=== PATIENT | male | born 1980 | race Hispanic/Latino ===

== ENCOUNTER 2018-01-02 13:02 | Observation (INO) | payer SELFPAY ==
[2018-01-02] MEDS ORDERED: NA CHLORIDE 0.9% 1,000 ML ONE (13:42)
[2018-01-02 13:44] LABS: Absolute Lymphocytes (CBC) 1.4 K/uL (0.7-4.9); Absolute Monocytes 0.7 K/uL (0.1-1.3); Absolute Neutrophil 11.6 K/uL (1.8-8.0); Basophils % 0.2 % (0-1.3); Eosinophils % 0.1 % (0-4.4); Hematocrit 39.8 % (39.6-49.0); Lymphocytes % 10.2 % (15.3-44.8); MCV 92.9 fL (80-100); MPV 7.7 fL (7.6-11.3); Monocytes % 5.3 % (3.3-12.3); RBC Red Blood Cell Count 4.28 M/uL (4.33-5.43)
[2018-01-02 13:53] LABS: Bicarbonate 25 mEq/L (21-31); Glucose Level 91 mg/dL (65-120); Potassium 3.5 mEq/L (3.6-5.0); Sodium Level 141 mEq/L (135-145)
--- NOTE | 2018-01-02 13:59 | RAD REPORT ---
EXAM DESCRIPTION: CT - Head Brain Wo Cont - 01/02/2018 1:43 pm CLINICAL HISTORY: Altered consciousness COMPARISON: 07/03/2015, 02/09/2015 TECHNIQUE: All CT scans are performed using dose optimization technique as appropriate and may inclu de automated exposure control or mA/KV adjustment according to patient size. FINDINGS: No intracranial hemorrhage, hydrocephalus or extra-axial fluid collection.No areas of brai n edema or evidence of midline shift. The paranasal sinuses and mastoids are clear. The calvarium is intact. IMPRESSION: No acute intracranial abnormality.
[2018-01-02 14:11] LABS: ALT/SGPT 28 IU/L (10-60); AST/SGOT 49 IU/L (10-42); Albumin 4.3 g/dL (3.2-5.5); Alkaline Phosphatase 77 IU/L (42-121); BUN Blood Urea Nitrogen 12 mg/dL (6-20); Bilirubin Direct 0.3 mg/dL (0-0.2); Bilirubin Total 2.2 mg/dL (0.3-1.2); Glomerular Filtration Rate > 90 mL/min (=/>90); Protein, Total 7.3 g/dL (6.0-8.3)
[2018-01-02 14:21] LABS: Alcohol Serum/Plasma < 10 mg/dl
[2018-01-02 14:21] LABS: Barbiturates NEGATIVE; Benzodiazepines NEGATIVE; Cocaine POSITIVE; Opiates NEGATIVE; Phencyclidine NEGATIVE; THC Cannibis POSITIVE
[2018-01-02 14:23] LABS: METHAMPHETAM POSITIVE
[2018-01-02 14:23] LABS: Creatine Phosphokinase 1455 IU/L (22-269)
[2018-01-02 14:36] LABS: Urine Blood NEGATIVE (NEG); Urine Glucose NEGATIVE (NEG); Urine Protein TRACE (NEG); Urine Specific Gravity >1.030 (1.005-1.030); Urine pH 5.5 (5.0-7.0)
--- NOTE | 2018-01-02 15:17 | EDPHYS ---
Physician Documentation [facility] Name: Tanner Lopes Age: 37 yrs Sex: Male : 1980 Arrival Date: 01/02/2018 Time: 13:03 Bed 30 Private MD: ED Physician Robel Farmer HPI: 01/02 15:11 This 37 yrs old Male presents to ER via EMS with complaints of general gs weakness. 15:11 The patient presents to the emergency department with weakness of the entire body, gs generalized weakness. Onset: The symptoms/episode began/occurred today. Context: occurred at home, possible ingestion of substance, unknown. Associated signs and symptoms: Pertinent positives: dizziness, weakness. Severity of symptoms: At their worst the symptoms were moderate in the emergency department the symptoms are unchanged. Current symptoms: confusion. The patient has not experienced similar symptoms in the past. Historical: - Allergies: 13:13 No Known Drug Allergies; lk1 - Home Meds: 13:13 gabapentin Oral [Active]; Risperdal Oral [Active]; lk1 - PMHx: 13:13 Anxiety; Bipolar disorder; Depression; Schizophrenia; lk1 - Immunization history:: Adult Immunizations up to date. - Social history:: Smoking status: Patient uses tobacco products, smokes one pack cigarettes per day. Patient uses alcohol, street drugs, marijuana. ROS: 15:11 All other systems are negative. gs Exam: 15:11 Head/Face: Normocephalic, atraumatic. Eyes: Pupils equal round and reactive to light, gs extra-ocular motions intact. Lids and lashes normal. Conjunctiva and sclera are non-icteric and not injected. Cornea within normal limits. Periorbital areas with no swelling, redness, or edema. ENT: Nares patent. No nasal discharge, no septal abnormalities noted. Tympanic membranes are normal and external auditory canals are clear. Oropharynx with no redness, swelling, or masses, exudates, or evidence of obstruction, uvula midline. Mucous membranes moist. Neck: Trachea midline, no thyromegaly or masses palpated, and no cervical lymphadenopathy. Supple, full range of motion without nuchal rigidity, or vertebral point tenderness. No Meningismus. Chest/axilla: Normal chest wall appearance and motion. Nontender with no deformity. No lesions are appreciated. Cardiovascular: Regular rate and rhythm with a normal S1 and S2. No gallops, murmurs, or rubs. Normal PMI, no JVD. No pulse deficits. Respiratory: Lungs have equal breath sounds bilaterally, clear to auscultation and percussion. No rales, rhonchi or wheezes noted. No increased work of breathing, no retractions or nasal flaring. Abdomen/GI: Soft, non-tender, with normal bowel sounds. No distension or tympany. No guarding or rebound. No evidence of tenderness throughout. Back: No spinal tenderness. No costovertebral tenderness. Full range of motion. Skin: Warm, dry with normal turgor. Normal color with no rashes, no lesions, and no evidence of cellulitis. MS/ Extremity: Pulses equal, no cyanosis. Neurovascular intact. Full, normal range of motion. 15:11 Constitutional: The patient appears alert, awake. 15:11 ECG was reviewed by the Attending Physician. 15:11 Neuro: Orientation: to person, place, time \T\ situation. Mentation: slow to respond, confused, Cranial nerves: CN II- XII are normal as tested, Cerebellar function: normal finger to nose testing, Motor: moves all fours, strength is 5/5 in all extremities, Sensation: no acute changes. Vital Signs: 13:17 BP 116 / 77; Pulse 84; Resp 16; Temp 98.9(O); Pulse Ox 99% ; tl3 14:53 BP 113 / 65; Pulse 76; Resp 16; Pulse Ox 98% on R/A; tl3 15:34 BP 123 / 70; Pulse 84; Resp 16; Pulse Ox 99% on R/A; tl3 16:28 BP 107 / 64; Pulse 78; Resp 16; Pulse Ox 100% ; tl3 MDM: 13:03 Patient medically screened. gs 15:11 Data reviewed: vital signs, nurses notes. Response to treatment: the patient's symptoms gs have mildly improved after treatment, and as a result, I will admit patient. 01/02 13:06 Order name: Basic Metabolic Panel; Complete Time: 15:04 01/02 13:06 Order name: CBC with Diff; Complete Time: 14:04 01/02 13:06 Order name: ETOH Level; Complete Time: 15:04 01/02 13:06 Order name: Hepatic Function; Complete Time: 15:04 01/02 13:06 Order name: Urine Drug Screen; Complete Time: 15:04 01/02 13:06 Order name: CPK; Complete Time: 15:04 01/02 13:06 Order name: EKG; Complete Time: 13:06 01/02 13:06 Order name: EKG - Nurse/Tech; Complete Time: 15:08 01/02 13:06 Order name: IV Saline Lock; Complete Time: 13:37 01/02 13:06 Order name: Labs collected and sent; Complete Time: 13:37 01/02 13:06 Order name: Urine Dipstick-Ancillary (obtain specimen); Complete Time: 15:24 01/02 13:06 Order name: CT Head Brain wo Cont; Complete Time: 14:04 01/02 14:11 Order name: Urine Dipstick--Ancillary (enter results); Complete Time: 15:04 ms EC:11 Rate is 70 beats/min. Rhythm is regular. T waves are Normal. No ST changes noted. Clinical impression: Abnormal EKG without significant change. Interpreted by me. Administered Medications: 13:36 Drug: NS 0.9% 1000 ml Route: IV; Rate: 1 bolus; Site: right forearm; Delivery: Primary tl3 tubing; 15:07 Follow up: IV Status: Completed infusion; IV Intake: 1000ml tl3 Disposition: 01/02/18 15:16 Hospitalization ordered by Adithya Knight for Observation. Preliminary diagnosis are Poisoning by cocaine, undetermined, Rhabdomyolysis. - Bed requested for Telemetry/MedSurg (observation). - Status is Observation. tl3 - Condition is Stable. - Problem is new. - Symptoms have improved. UTI on Admission? No Signatures: Dispatcher [employer] EDOrquidea Naylor ms, Leah, RN RN lk1 Olive Jha RN RN df Starr, Gregory, MD MD Kari Bocanegra RN RN tl3
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
[2018-01-02] MEDS ORDERED: ONDANSETRON 4 MG/2 ML VIAL IV PRN (16:58)
[2018-01-02] MEDS ORDERED: ACETAMINOPHEN 650MG/RECT SUPP PR PRN (16:58)
[2018-01-02 17:33] VITALS: BMI 25.1
[2018-01-02] MEDS: NA CHLORIDE 0.9% 1,000 ML IV SCH ×2 (17:42→22:41)
[2018-01-02] MEDS ORDERED: INFLUENZA VACCINE (for 5y+) 0.5 ML DOSE IMVAC ONE (18:00)
[2018-01-02 18:04] LABS: CKMB Creatine Kinase MB 9.9 ng/ml (0.3-4.0)
[2018-01-02 23:29] VITALS: O2SAT 97
[2018-01-03 01:47] LABS: CKMB Creatine Kinase MB 8.2 ng/ml (0.3-4.0)
[2018-01-03] MEDS: NA CHLORIDE 0.9% 1,000 ML IV SCH ×2 (02:54→08:07)
[2018-01-03 03:52] LABS: Urine Appearance CLEAR; Urine Bilirubin NEGATIVE (NEG); Urine Blood NEGATIVE (NEG); Urine Color YELLOW; Urine Glucose NEGATIVE (NEG); Urine Protein NEGATIVE (NEG); Urine Specific Gravity >=1.030 (1.005-1.030)
[2018-01-03 03:58] LABS: Urine Microscopic Reflex NO UMIC
--- NOTE | 2018-01-03 04:37 | HP ---
Date of Admission: 01/02/2018 Reason For Admission: Drug overdose. History Of Present Illness: This is a 37-year-old gentleman with history of multiple medical problem s significant for depression, bipolar, anxiety, schizophrenia, who presented to the emergency departm ent with generalized fatigue, weakness of the entire body after onset of substance ingestion. The pa keena reported some dizziness with occasional confusion in the emergency room. A CAT scan of the bra in was done and that was normal. Labs showed CBC with white blood cells 13.8, hemoglobin 13.3, plate let of 359. Chemistry was normal except for potassium of 3.5, bilirubin of 2.2 with direct bilirubin of 0.3. AST of 49. Creatine kinase was 1455. CMP was pending. Troponin also was pending as well. Urine tox screen was positive for amphetamine, cocaine, and THC. He was admitted to be observed fo r rhabdo and hydration. Currently, he is lying in bed. He looks comfortable. His fatigue improved. He is able to talk appropriately. Review of systems is otherwise as below. Past Medical History: Significant for depression, anxiety, bipolar, and schizophrenia. Past Surgical History: None. Allergies: NONE. Social History: He is single. He has 1 kid. He works as an security installer. He does not drink so much, just socially, but he does use drugs, cocaine, pot, meth. He also smoke tobacco up to half pack a da y. Family History: Significant for both father and mother of cirrhosis from what he call it fatty liver. Review of Systems: Denies any fever, chills, night sweats. Had dizziness earlier, but not any more. He had fatigue ear lier. No cough, sputum, shortness of breath. No chest pain, palpitations, PND, orthopnea, dyspnea o n exertion. No lower extremity edema. No nausea, vomiting, abdominal pain, change in bowel movement , diarrhea, constipation, dysuria, frequency, urgency, hematuria. There is no history of seizure or stroke, but depression and anxiety. Physical Examination: Vital Signs: Currently, blood pressure is at 113/65, respiratory rate 16, pulse 76, temperature 98.9 , saturating 98% on room air. General: He is fully alert, oriented x3. Does not look in any distress. HEENT: Atraumatic, normocephalic. PERRLA. Oral mucosa is moist. Neck: Supple. No JVD. No carotid bruits. Chest: Clear to auscultation. Good air entry. Heart: Regular rate and rhythm. S1 and S2 normal. No gallop or murmur. Abdomen: Soft, nontender. No masses. No hepatosplenomegaly. Positive bowel sounds. Extremities: No clubbing, cyanosis, or edema. No calf tenderness. Neurologic: Grossly intact. Cranial nerve exam 2 through 12 intact. Normal sensation. Normal refl exes. Normal muscle strength. Laboratory Data: Labs in the emergency room showed CBC within normal, except for mild anemia at 13.3 , white blood cells 13.8. Chemistry within normal except for potassium of 3.5, bilirubin of 2.2 with direct bilirubin of 0.3. AST of 49. Urine tox was positive for amphetamine, cocaine, and THC. Assessment And Plan: This is a 37-year-old gentleman with history of multiple psychological problems like depression, anxiety, bipolar, and schizophrenia admitted with general fatigue and drug overdose . 1.Drug overdose with substance abuse. The patient counseled about stop using drugs and he will be o bserved overnight. 2.Rhabdomyolysis ? We will start the patient on aggressive IV hydration with 200 cc per hour of nor mal saline and check CK every 8 hours. I will also check his CK-MB and troponin given his cocaine us e. 3.If the patient's CK improves overnight, we will probably discharge him home tomorrow. 4.Elevated AST consistent with alcohol intake. We will observe for now and repeat LFTs in the [facility]. LILLIAN/JESIKA Voice ID: [id number]
[2018-01-03 05:48] LABS: Absolute Lymphocytes (CBC) 2.2 K/uL (0.7-4.9); Absolute Monocytes 0.6 K/uL (0.1-1.3); Absolute Neutrophil 3.3 K/uL (1.8-8.0); Basophils % 0.7 % (0-1.3); Eosinophils % 2.2 % (0-4.4); Hematocrit 37.9 % (39.6-49.0); Lymphocytes % 35.1 % (15.3-44.8); MCH 31.1 pg (27.0-35.0); MCV 92.9 fL (80-100); MPV 7.8 fL (7.6-11.3); Monocytes % 9.1 % (3.3-12.3); RBC Red Blood Cell Count 4.08 M/uL (4.33-5.43)
[2018-01-03 06:16] LABS: ALT/SGPT 32 IU/L (10-60); AST/SGOT 58 IU/L (10-42); Albumin 3.2 g/dL (3.2-5.5); Alkaline Phosphatase 67 IU/L (42-121); BUN Blood Urea Nitrogen 12 mg/dL (6-20); Bicarbonate 26 mEq/L (21-31); Bilirubin Total 1.2 mg/dL (0.3-1.2); Glomerular Filtration Rate > 90 mL/min (=/>90); Glucose Level 84 mg/dL (65-120); Potassium 3.8 mEq/L (3.6-5.0); Protein, Total 5.8 g/dL (6.0-8.3); Sodium Level 139 mEq/L (135-145)
[2018-01-03 10:02] LABS: CKMB Creatine Kinase MB 7.1 ng/ml (0.3-4.0)
[2018-01-03 10:04] VITALS: BP 114/68; TEMP 97.7
[2018-01-03] MEDS ORDERED: INFLUENZA VACCINE (for 5y+) 0.5 ML DOSE IMVAC ONE (12:00)
--- NOTE | 2018-01-03 12:47 | EKG ---
Test Date: 2018-01-02 Test Time: 15:01:06 Outside Sales: TL MEASUREMENT RESULTS: Intervals: Rate: 66 MN: 160 QRSD: 94 QT: 398 QTc: 417 [place]: P: 112 MN: 160 QRS: 124 T: 143 INTERPRETIVE STATEMENTS: Suspect arm lead reversal, interpretation assumes no reversal Normal sinus rhythm Right axis deviation Right ventricular hypertrophy Nonspecific ST and T wave abnormality Abnormal ECG Compared to ECG 07/03/2015 00:41:22 Most likely a Normal ECG except for arm lead reversal Electronically Signed On 01-03-18 12:47:09 CDT by Carl Barnes
--- NOTE | 2018-01-04 02:02 | DS ---
Date of Discharge: 01/03/2018 Discharge Diagnoses: 1.Substance abuse. 2.Fatigue. 3.Elevated CK, rule out rhabdomyolysis. 4.Mild anemia. Consult: None. Procedure: None except for CAT scan, which was negative. History Of Present Illness: Please refer to my history and physical exam noted yesterday. Hospital Course: Initially, the patient presented with progressive fatigue and confusion and found t o have substance abuse. Upon screening in the emergency room, was positive for amphetamine which he admitted taking cocaine and THC. The patient's labs showed mild anemia with leukocytosis, which reso lved today. His CK was elevated all the way up to 1201. He was kept on IV fluid hydration to observ e that overnight and this morning, it was all the way down to 785. The patient had very good urine o utput. His troponin was negative. He never had any chest pain. We will be discharging him home to [place]. He will need to follow up with primary care physician in couple weeks. He stated he had one, wh om he had not seen for a while. Check his CK and make sure it is going down. I advised him to drink a lot and keep well hydrated, at least 8 ounces every 2 hours. The patient was advised to come back if he has any chest pain. He advised to avoid drugs as that would put him at risk for heart attack. In terms of his feet, I am not sure if the patient has eczema. I advised him to use cortisone crea m 1% [id number]. Discussed with primary care physician to refer him to Dermatology. Discharge Condition: Stable. Discharge Diet: Regular. Discharge Followup: With primary care physician in Thursday or Thursday with labs to check CK and CK-MB and primary care physician to refer the patient to Dermatology. Discharge Medications: [id number] cortisone cream. Prescription needed otherwise none. Discharge Physical Examination: Vital Signs: Currently vital signs, blood pressure is 114/60, respi ratory rate 18, pulse 74, temperature 97.7. General: The patient is alert and oriented x3. Does not look in any distress. HEENT: Atraumatic, normocephalic. PERRLA. Oral mucosa is moist. Neck: Supple. No JVP. No carotid bruits. Chest: Clear to auscultation. Good air entry. Heart: Regular rate and rhythm. S1, S2 normal. No gallop or murmur. Abdomen: Soft. No masses. No hepatosplenomegaly. Positive bowel sounds. Extremities: No clubbing, cyanosis, or edema. There is dry slough skin at the bottom of his feet. Neurologic: Grossly intact. Cranial nerve exam 2 through 12 intact. Normal sensation. Normal refl exes. Normal muscle strength. LILLIAN/JESIKA Voice ID: [id number] Report ID: [id number]
== END 2018-01-03 15:23 | disposition home or self-care (01) ==
LOC: ER 13:02 → ERHOLD 15:16 → 2ND 16:33
PROVIDERS: ADMIT Internal Medicine; ATTEND Internal Medicine
DX: F31.9 Bipolar disorder, unspecified; F17.210 Nicotine dependence, cigarettes, uncomplicated; F41.8 Other specified anxiety disorders; D64.9 Anemia, unspecified; Z23 Encounter for immunization; R53.83 Other fatigue; F15.10 Other stimulant abuse, uncomplicated; F14.10 Cocaine abuse, uncomplicated; F12.10 Cannabis abuse, uncomplicated
CPT/HCPCS: 36415; 70450; 80048; 80053; 80076; 80307; 80320; 81003; 82550; 82553; 84484; 85025; 93005; 96360; 96361; 99285; G0008; G0378; J7030; Q2035

== ENCOUNTER 2018-02-05 14:03 | Emergency (ER) | payer SELFPAY ==
[2018-02-05 14:38] LABS: Urine Blood TRACE (NEG); Urine Glucose NEGATIVE (NEG); Urine Protein NEGATIVE (NEG); Urine Specific Gravity >1.030 (1.005-1.030)
[2018-02-05 15:25] LABS: Barbiturates NEGATIVE; Benzodiazepines POSITIVE; Cocaine NEGATIVE; Opiates NEGATIVE; Phencyclidine NEGATIVE; THC Cannibis POSITIVE
[2018-02-05 15:26] LABS: METHAMPHETAM POSITIVE
[2018-02-05 15:46] LABS: Absolute Lymphocytes (CBC) 1.6 K/uL (0.7-4.9); Absolute Monocytes 0.4 K/uL (0.1-1.3); Absolute Neutrophil 5.1 K/uL (1.8-8.0); Basophils % 0.2 % (0-1.3); Eosinophils % 1.5 % (0-4.4); Lymphocytes % 21.8 % (15.3-44.8); MCH 30.5 pg (27.0-35.0); MCV 91.8 fL (80-100); MPV 7.9 fL (7.6-11.3); Monocytes % 6.2 % (3.3-12.3); RBC Red Blood Cell Count 4.03 M/uL (4.33-5.43)
[2018-02-05 15:53] LABS: Glucose Level 98 mg/dL (65-120); Protime INR 1.02
[2018-02-05 15:59] LABS: ALT/SGPT 47 IU/L (10-60); AST/SGOT 39 IU/L (10-42); Albumin 4.1 g/dL (3.2-5.5); Alkaline Phosphatase 58 IU/L (42-121); Bilirubin Direct 0.1 mg/dL (0-0.2); Bilirubin Total 0.8 mg/dL (0.3-1.2); Protein, Total 6.8 g/dL (6.0-8.3)
[2018-02-05 16:01] LABS: Bicarbonate 27 mEq/L (21-31); Sodium Level 138 mEq/L (135-145)
[2018-02-05 16:02] LABS: Alcohol Serum/Plasma < 10 mg/dl; BUN Blood Urea Nitrogen < 5 mg/dL (6-20); Salicylates Level < 4.0 mg/dl (<30)
[2018-02-05 16:03] LABS: Potassium 2.9 mEq/L (3.6-5.0)
[2018-02-05] MEDS ORDERED: POTASSIUM 25 MEQ EFFERV TAB ONE (16:22)
--- NOTE | 2018-02-05 17:41 | EKG ---
Test Date: 2018-02-05 Test Time: 14:30:48 Compensation Intern: TATI/Braxton MEASUREMENT RESULTS: Intervals: Rate: 71 WI: 160 QRSD: 92 QT: 372 QTc: 404 [place]: P: 52 WI: 160 QRS: 61 T: 24 INTERPRETIVE STATEMENTS: Normal sinus rhythm Normal ECG Compared to ECG 01/02/2018 15:01:06 Right-axis deviation no longer present Right ventricular hypertrophy no longer present ST (T wave) deviation no longer present Electronically Signed On 02-05-18 17:40:18 CDT by Carl Barnes
[2018-02-06] MEDS ORDERED: LORAZEPAM 1 MG TABLET ONE ×2 (10:22→13:47)
[2018-02-06] MEDS ORDERED: ZIPRASIDONE MESYLA 20 MG/VIAL IM ONE (15:26)
[2018-02-07] MEDS ORDERED: LORAZEPAM 1 MG TABLET ONE (19:59)
--- NOTE | 2018-02-08 14:08 | ER ---
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 this time. 16:30 Safety Checks: Personal items have been removed The door is open or patient has been ph placed in a hallway bed/chair. There are no family/friend visitors at this time. 16:35 Primary Nurse role handed off by Velia Jacobson LVN ph 16:35 Peggy Baumann, RN is Primary Nurse. ph 16:38 No provider procedures requiring assistance completed. ph 16:45 Safety Checks: Personal items have been removed The door is open or patient has been ph placed in a hallway bed/chair. There are no family/friend visitors at this time. 17:00 Safety Checks: Personal items have been removed The door is open or patient has been ph placed in a hallway bed/chair. There are no family/friend visitors at this time. 17:15 Safety Checks: Personal items have been removed The door is open or patient has been ph placed in a hallway bed/chair. There are no family/friend visitors at this time. 17:30 Safety Checks: Personal items have been removed The door is open or patient has been ph placed in a hallway bed/chair. There are no family/friend visitors at this time. 17:45 Safety Checks: Personal items have been removed The door is open or patient has been ph placed in a hallway bed/chair. There are no family/friend visitors at this time. 18:00 Safety Checks: Personal items have been removed The door is open or patient has been ph placed in a hallway bed/chair. There are no family/friend visitors at this time. 18:13 PHCP role handed off by Raul Morrison NP kb 18:13 Prema Mcknight FNP-C is PHCP. kb 18:15 Safety Checks: Personal items have been removed The door is open or patient has been ph placed in a hallway bed/chair. There are no family/friend visitors at this time. 18:30 Safety Checks: Personal items have been removed The door is open or patient has been ph placed in a hallway bed/chair. There are no family/friend visitors at this time. 18:45 Safety Checks: Personal items have been removed The door is open or patient has been ph placed in a hallway bed/chair. There are no family/friend visitors at this time. 18:51 Repeat lab(s) drawn. sent to lab. [facility] 19:00 Safety Checks: Personal items have been removed The door is open or patient has been bs1 placed in a hallway bed/chair. There are no family/friend visitors at this time. 19:00 Safety checks: Items removed: yes. Door open/sign placed on door: yes. Family/friend oe present: no. 19:15 Safety Checks: Personal items have been removed The door is open or patient has been bs1 placed in a hallway bed/chair. There are no family/friend visitors at this time. 19:15 Safety checks: Items removed: yes. Door open/sign placed on door: yes. Family/friend oe present: no. 19:30 Safety Checks: Personal items have been removed The door is open or patient has been bs1 placed in a hallway bed/chair. There are no family/friend visitors at this time. 19:30 Safety checks: Items removed: yes. Door open/sign placed on door: yes. Family/friend oe present: no. 19:45 Safety Checks: Personal items have been removed The door is open or patient has been bs1 placed in a hallway bed/chair. There are no family/friend visitors at this time. 19:45 Safety checks: Items removed: yes. Door open/sign placed on door: yes. Family/friend oe present: no. 20:00 Safety Checks: Personal items have been removed The door is open or patient has been bs1 placed in a hallway bed/chair. There are no family/friend visitors at this time. 20:00 Safety checks: Items removed: yes. Door open/sign placed on door: yes. Family/friend oe present: no. 20:15 Safety Checks: Personal items have been removed The door is open or patient has been bs1 placed in a hallway bed/chair. There are no family/friend visitors at this time. 20:15 Safety checks: Items removed: yes. Door open/sign placed on door: yes. Family/friend oe present: no. 20:30 Safety Checks: Personal items have been removed The door is open or patient has been bs1 placed in a hallway bed/chair. There are no family/friend visitors at this time. 20:30 Safety checks: Items removed: yes. Door open/sign placed on door: yes. Family/friend oe present: no. 20:45 Safety Checks: Personal items have been removed The door is open or patient has been bs1 placed in a hallway bed/chair. There are no family/friend visitors at this time. 20:45 Safety checks: Items removed: yes. Door open/sign placed on door: yes. Family/friend jl7 present: no. 21:00 Safety Checks: Personal items have been removed The door is open or patient has been bs1 placed in a hallway bed/chair. There are no family/friend visitors at this time. 21:00 Safety checks: Items removed: yes. Door open/sign placed on door: yes. Family/friend oe present: no. 21:15 Safety Checks: Personal items have been removed The door is open or patient has been bs1 placed in a hallway bed/chair. There are no family/friend visitors at this time. 21:15 Safety checks: Items removed: yes. Door open/sign placed on door: yes. Family/friend oe present: no. 21:30 Safety Checks: Personal items have been removed The door is open or patient has been bs1 placed in a hallway bed/chair. There are no family/friend visitors at this time. 21:30 Safety checks: Items removed: yes. Door open/sign placed on door: yes. Family/friend oe present: no. 21:45 Safety Checks: Personal items have been removed The door is open or patient has been bs1 placed in a hallway bed/chair. There are no family/friend visitors at this time. 21:45 Safety checks: Items removed: yes. Door open/sign placed on door: yes. Family/friend oe present: no. 22:00 Safety Checks: Personal items have been removed The door is open or patient has been bs1 placed in a hallway bed/chair. There are no family/friend visitors at this time. 22:00 Safety checks: Items removed: yes. Door open/sign placed on door: yes. Family/friend oe present: no. 22:15 Safety Checks: Personal items have been removed The door is open or patient has been bs1 placed in a hallway bed/chair. There are no family/friend visitors at this time. 22:15 Safety checks: Items removed: yes. Door open/sign placed on door: yes. Family/friend oe present: no. 22:30 Safety Checks: Personal items have been removed The door is open or patient has been bs1 placed in a hallway bed/chair. There are no family/friend visitors at this time. 22:30 Safety checks: Items removed: yes. Door open/sign placed on door: yes. Family/friend oe present: no. 22:45 Safety Checks: Personal items have been removed The door is open or patient has been bs1 placed in a hallway bed/chair. There are no family/friend visitors at this time. 22:45 Safety checks: Items removed: yes. Door open/sign placed on door: yes. Family/friend oe present: no. 23:00 Safety Checks: Personal items have been removed The door is open or patient has been bs1 placed in a hallway bed/chair. There are no family/friend visitors at this time. 23:00 Safety checks: Items removed: yes. Door open/sign placed on door: yes. Family/friend oe present: no. 23:15 Safety Checks: Personal items have been removed The door is open or patient has been bs1 placed in a hallway bed/chair. There are no family/friend visitors at this time. 23:15 Safety checks: Items removed: yes. Door open/sign placed on door: yes. Family/friend oe present: no. 23:30 Safety Checks: Personal items have been removed The door is open or patient has been bs1 placed in a hallway bed/chair. There are no family/friend visitors at this time. 23:30 Safety checks: Items removed: yes. Door open/sign placed on door: yes. Family/friend oe present: no. 23:45 Safety Checks: Personal items have been removed The door is open or patient has been bs1 placed in a hallway bed/chair. There are no family/friend visitors at this time. 23:45 Safety checks: Items removed: yes. Door open/sign placed on door: yes. Family/friend oe present: no. 02/06 00:00 Safety Checks: Personal items have been removed The door is open or patient has been bs1 placed in a hallway bed/chair. There are no family/friend visitors at this time. 00:00 Safety checks: Items removed: yes. Door open/sign placed on door: yes. Family/friend oe present: no. 00:15 Safety Checks: Personal items have been removed The door is open or patient has been bs1 placed in a hallway bed/chair. There are no family/friend visitors at this time. 00:15 Safety checks: Items removed: yes. Door open/sign placed on door: yes. Family/friend oe present: no. 00:30 Safety Checks: Personal items have been removed The door is open or patient has been bs1 placed in a hallway bed/chair. There are no family/friend visitors at this time. 00:30 Safety checks: Items removed: yes. Door open/sign placed on door: yes. Family/friend oe present: no. 00:45 Safety Checks: Personal items have been removed The door is open or patient has been bs1 placed in a hallway bed/chair. There are no family/friend visitors at this time. 00:45 Safety checks: Items removed: yes. Door open/sign placed on door: yes. Family/friend oe present: no. 01:00 Safety Checks: Personal items have been removed The door is open or patient has been bs1 placed in a hallway bed/chair. There are no family/friend visitors at this time. 01:00 Safety checks: Items removed: yes. Door open/sign placed on door: yes. Family/friend oe present: no. 01:15 Safety Checks: Personal items have been removed The door is open or patient has been bs1 placed in a hallway bed/chair. There are no family/friend visitors at this time. 01:15 Safety checks: Items removed: yes. Door open/sign placed on door: yes. Family/friend oe present: no. 01:30 Safety Checks: Personal items have been removed The door is open or patient has been bs1 placed in a hallway bed/chair. There are no family/friend visitors at this time. 01:30 Safety checks: Items removed: yes. Door open/sign placed on door: yes. Family/friend oe present: no. 01:45 Safety Checks: Personal items have been removed The door is open or patient has been bs1 placed in a hallway bed/chair. There are no family/friend visitors at this time. 01:45 Safety checks: Items removed: yes. Door open/sign placed on door: yes. Family/friend oe present: no. 02:00 Safety Checks: Personal items have been removed The door is open or patient has been bs1 placed in a hallway bed/chair. There are no family/friend visitors at this time. 02:00 Safety checks: Items removed: yes. Door open/sign placed on door: yes. Family/friend oe present: no. 02:15 Safety Checks: Personal items have been removed The door is open or patient has been bs1 placed in a hallway bed/chair. There are no family/friend visitors at this time. 02:15 Safety checks: Items removed: yes. Door open/sign placed on door: yes. Family/friend oe present: no. 02:30 Safety Checks: Personal items have been removed The door is open or patient has been bs1 placed in a hallway bed/chair. There are no family/friend visitors at this time. 02:30 Safety checks: Items removed: yes. Door open/sign placed on door: yes. Family/friend oe present: no. 02:45 Safety Checks: Personal items have been removed The door is open or patient has been bs1 placed in a hallway bed/chair. There are no family/friend visitors at this time. 02:45 Safety checks: Items removed: yes. Door open/sign placed on door: yes. Family/friend oe present: no. 03:00 Safety Checks: Personal items have been removed The door is open or patient has been bs1 placed in a hallway bed/chair. There are no family/friend visitors at this time. 03:00 Safety checks: Items removed: yes. Door open/sign placed on door: yes. Family/friend oe present: no. 03:15 Safety Checks: Personal items have been removed The door is open or patient has been bs1 placed in a hallway bed/chair. There are no family/friend visitors at this time. 03:15 Safety checks: Items removed: yes. Door open/sign placed on door: yes. Family/friend oe present: no. 03:30 Safety Checks: Personal items have been removed The door is open or patient has been bs1 placed in a hallway bed/chair. There are no family/friend visitors at this time. 03:30 Safety checks: Items removed: yes. Door open/sign placed on door: yes. Family/friend oe present: no. 03:45 Safety Checks: Personal items have been removed The door is open or patient has been bs1 placed in a hallway bed/chair. There are no family/friend visitors at this time. 03:45 Safety checks: Items removed: yes. Door open/sign placed on door: yes. Family/friend oe present: no. 04:00 Safety Checks: Personal items have been removed The door is open or patient has been bs1 placed in a hallway bed/chair. There are no family/friend visitors at this time. 04:00 Safety checks: Items removed: yes. Door open/sign placed on door: yes. Family/friend oe present: no. 04:14 Safety checks: Items removed: yes. Door open/sign placed on door: yes. Family/friend oe present: no. 04:15 Safety Checks: Personal items have been removed The door is open or patient has been bs1 placed in a hallway bed/chair. There are no family/friend visitors at this time. 04:15 Safety checks: Items removed: yes. Door open/sign placed on door: yes. Family/friend oe present: no. 04:30 Safety Checks: Personal items have been removed The door is open or patient has been bs1 placed in a hallway bed/chair. There are no family/friend visitors at this time. 04:30 Safety checks: Items removed: yes. Door open/sign placed on door: yes. Family/friend oe present: no. 04:45 Safety Checks: Personal items have been removed The door is open or patient has been bs1 placed in a hallway bed/chair. There are no family/friend visitors at this time. 04:45 Safety checks: Items removed: yes. Door open/sign placed on door: yes. Family/friend oe present: no. 05:00 Safety Checks: Personal items have been removed The door is open or patient has been bs1 placed in a hallway bed/chair. There are no family/friend visitors at this time. Safety Checks:. 05:00 Safety checks: Items removed: yes. Door open/sign placed on door: yes. Family/friend oe present: no. 05:09 Safety checks: Items removed: yes. Door open/sign placed on door: yes. Family/friend oe present: no. 05:15 Safety Checks: Personal items have been removed The door is open or patient has been ak1 placed in a hallway bed/chair. There are no family/friend visitors at this time. 05:30 Safety Checks: Personal items have been removed The door is open or patient has been ak1 placed in a hallway bed/chair. There are no family/friend visitors at this time. 05:30 Safety checks: Items removed: yes. Door open/sign placed on door: yes. Family/friend oe present: no. 05:45 Safety Checks: Personal items have been removed The door is open or patient has been ak1 placed in a hallway bed/chair. There are no family/friend visitors at this time. 06:00 Appears to be sleeping. transfer. Safety Checks: Personal items have been removed The ak1 door is open or patient has been placed in a hallway bed/chair. There are no family/friend visitors at this time. 06:00 Safety checks: Items removed: yes. Door open/sign placed on door: yes. Family/friend oe present: no. 06:15 Safety Checks: Personal items have been removed The door is open or patient has been ak1 placed in a hallway bed/chair. There are no family/friend visitors at this time. 06:15 Safety checks: Items removed: yes. Door open/sign placed on door: yes. Family/friend oe present: no. 06:27 PHCP role handed off by Prema Mcknight FNP-C pm1 06:27 Marinas, Raul, CARDIOVASCULAR RADIOLOGIC TECHNOLOGIST is PHCP. pm1 06:30 Appears to be sleeping. transfer. Safety Checks: Personal items have been removed The ak1 door is open or patient has been placed in a hallway bed/chair. There are no family/friend visitors at this time. 06:30 Safety checks: Items removed: yes. Door open/sign placed on door: yes. Family/friend oe present: no. 06:45 Appears to be sleeping. transfer. Safety Checks: Personal items have been removed The ak1 door is open or patient has been placed in a hallway bed/chair. There are no family/friend visitors at this time. 06:45 Safety checks: Items removed: yes. Door open/sign placed on door: yes. Family/friend oe present: no. 06:55 Safety checks: Items removed: yes. Door open/sign placed on door: yes. Family/friend jl7 present: no. 07:00 Safety Checks: Personal items have been removed The door is open or patient has been rb1 placed in a hallway bed/chair. There are no family/friend visitors at this time. 07:00 Sitter at bedside. rb1 07:15 Safety Checks: Personal items have been removed The door is open or patient has been rb1 placed in a hallway bed/chair. There are no family/friend visitors at this time. 07:24 called [facility] spoke with Virgilio who will call out a account representative to come eb evaluate the patient for possible transfer. 07:30 Safety Checks: Personal items have been removed The door is open or patient has been rb1 placed in a hallway bed/chair. There are no family/friend visitors at this time. 07:45 Safety Checks: Personal items have been removed The door is open or patient has been rb1 placed in a hallway bed/chair. There are no family/friend visitors at this time. 08:00 Safety Checks: Personal items have been removed The door is open or patient has been rb1 placed in a hallway bed/chair. There are no family/friend visitors at this time. 08:15 Safety Checks: Personal items have been removed The door is open or patient has been rb1 placed in a hallway bed/chair. There are no family/friend visitors at this time. 08:30 Safety Checks: Personal items have been removed The door is open or patient has been rb1 placed in a hallway bed/chair. There are no family/friend visitors at this time. 08:45 Safety Checks: Personal items have been removed The door is open or patient has been rb1 placed in a hallway bed/chair. There are no family/friend visitors at this time. 09:00 Safety Checks: Personal items have been removed The door is open or patient has been rb1 placed in a hallway bed/chair. There are no family/friend visitors at this time. 09:11 Jennifer from [facility] here to evaluate patient. 09:15 Safety Checks: Personal items have been removed The door is open or patient has been rb1 placed in a hallway bed/chair. There are no family/friend visitors at this time. 09:30 Safety Checks: Personal items have been removed The door is open or patient has been rb1 placed in a hallway bed/chair. There are no family/friend visitors at this time. 09:45 Safety Checks: Personal items have been removed The door is open or patient has been rb1 placed in a hallway bed/chair. There are no family/friend visitors at this time. 10:00 Safety Checks: Personal items have been removed The door is open or patient has been rb1 placed in a hallway bed/chair. There are no family/friend visitors at this time. 10:04 faxed Jennifer's from [facility] findings along with pt chart to the following [facility] for patient transfer. [facility], [facility], [facility], [facility], [facility], [facility], [facility], [facility], [facility], Count Includes [facility], [facility],and [facility]. 10:15 Safety Checks: Personal items have been removed The door is open or patient has been rb1 placed in a hallway bed/chair. There are no family/friend visitors at this time. 10:30 Safety Checks: Personal items have been removed The door is open or patient has been rb1 placed in a hallway bed/chair. There are no family/friend visitors at this time. 10:45 Safety Checks: Personal items have been removed The door is open or patient has been rb1 placed in a hallway bed/chair. There are no family/friend visitors at this time. 11:00 Safety Checks: Personal items have been removed The door is open or patient has been rb1 placed in a hallway bed/chair. There are no family/friend visitors at this time. 11:15 Safety Checks: Personal items have been removed The door is open or patient has been rb1 placed in a hallway bed/chair. There are no family/friend visitors at this time. 11:30 Safety Checks: Personal items have been removed The door is open or patient has been rb1 placed in a hallway bed/chair. There are no family/friend visitors at this time. 11:40 [facility] called and declined patient due to no beds at this time. eb 11:45 Safety Checks: Personal items have been removed The door is open or patient has been rb1 placed in a hallway bed/chair. There are no family/friend visitors at this time. 12:00 Safety Checks: Personal items have been removed The door is open or patient has been rb1 placed in a hallway bed/chair. There are no family/friend visitors at this time. 12:15 Safety Checks: Personal items have been removed The door is open or patient has been rb1 placed in a hallway bed/chair. There are no family/friend visitors at this time. 12:30 Safety Checks: Personal items have been removed The door is open or patient has been rb1 placed in a hallway bed/chair. There are no family/friend visitors at this time. 12:45 Safety Checks: Personal items have been removed The door is open or patient has been rb1 placed in a hallway bed/chair. There are no family/friend visitors at this time. 13:00 Safety Checks: Personal items have been removed The door is open or patient has been rb1 placed in a hallway bed/chair. There are no family/friend visitors at this time. 13:15 Safety Checks: Personal items have been removed The door is open or patient has been rb1 placed in a hallway bed/chair. There are no family/friend visitors at this time. 13:30 Safety Checks: Personal items have been removed The door is open or patient has been rb1 placed in a hallway bed/chair. There are no family/friend visitors at this time. 13:45 Safety Checks: Personal items have been removed The door is open or patient has been rb1 placed in a hallway bed/chair. There are no family/friend visitors at this time. 14:00 Safety Checks: Personal items have been removed The door is open or patient has been rb1 placed in a hallway bed/chair. There are no family/friend visitors at this time. 14:15 Safety Checks: Personal items have been removed The door is open or patient has been rb1 placed in a hallway bed/chair. There are no family/friend visitors at this time. 14:30 Safety Checks: Personal items have been removed The door is open or patient has been rb1 placed in a hallway bed/chair. There are no family/friend visitors at this time. 14:45 Safety Checks: Personal items have been removed The door is open or patient has been rb1 placed in a hallway bed/chair. There are no family/friend visitors at this time. 15:00 Safety Checks: Personal items have been removed The door is open or patient has been rb1 placed in a hallway bed/chair. There are no family/friend visitors at this time. 15:15 Safety Checks: Personal items have been removed The door is open or patient has been rb1 placed in a hallway bed/chair. There are no family/friend visitors at this time. 15:30 Safety Checks: Personal items have been removed The door is open or patient has been rb1 placed in a hallway bed/chair. There are no family/friend visitors at this time. 15:45 Safety Checks: Personal items have been removed The door is open or patient has been rb1 placed in a hallway bed/chair. There are no family/friend visitors at this time. 16:00 Safety Checks: Personal items have been removed The door is open or patient has been rb1 placed in a hallway bed/chair. There are no family/friend visitors at this time. 16:15 Safety Checks: Personal items have been removed The door is open or patient has been rb1 placed in a hallway bed/chair. There are no family/friend visitors at this time. 16:30 Safety Checks: Personal items have been removed The door is open or patient has been rb1 placed in a hallway bed/chair. There are no family/friend visitors at this time. 16:45 Safety Checks: Personal items have been removed The door is open or patient has been rb1 placed in a hallway bed/chair. There are no family/friend visitors at this time. 17:00 Safety Checks: Personal items have been removed The door is open or patient has been rb1 placed in a hallway bed/chair. There are no family/friend visitors at this time. 17:15 Safety Checks: Personal items have been removed The door is open or patient has been rb1 placed in a hallway bed/chair. There are no family/friend visitors at this time. 17:30 Safety Checks: Personal items have been removed The door is open or patient has been rb1 placed in a hallway bed/chair. There are no family/friend visitors at this time. 17:45 Safety Checks: Personal items have been removed The door is open or patient has been rb1 placed in a hallway bed/chair. There are no family/friend visitors at this time. 18:00 Safety Checks: Personal items have been removed The door is open or patient has been rb1 placed in a hallway bed/chair. There are no family/friend visitors at this time. 18:15 Safety Checks: Personal items have been removed The door is open or patient has been rb1 placed in a hallway bed/chair. There are no family/friend visitors at this time. 18:30 Safety Checks: Personal items have been removed The door is open or patient has been rb1 placed in a hallway bed/chair. There are no family/friend visitors at this time. 18:45 Safety Checks: Personal items have been removed The door is open or patient has been rb1 placed in a hallway bed/chair. There are no family/friend visitors at this time. 18:55 Report given to MASSIMO Shearer. rb1 19:00 Safety Checks: Personal items have been removed The door is open or patient has been rb1 placed in a hallway bed/chair. There are no family/friend visitors at this time. 19:45 Assumed patient care. Patient is sleeping, not in any distress. mh6 20:20 Diet: Patient given snack. Tolerated well. mh6 20:21 Safety Checks: Personal items have been removed The door is open or patient has been mh6 placed in a hallway bed/chair. There are no family/friend visitors at this time. 20:21 No apparent distress. Patient requests food. mh6 20:35 Safety Checks: Personal items have been removed The door is open or patient has been mh6 placed in a hallway bed/chair. There are no family/friend visitors at this time. 20:45 No apparent distress. mh6 20:45 Safety Checks: Personal items have been removed The door is open or patient has been mh6 placed in a hallway bed/chair. There are no family/friend visitors at this time. 21:00 No apparent distress. Safety Checks: Personal items have been removed The door is open mh6 or patient has been placed in a hallway bed/chair. There are no family/friend visitors at this time. 21:15 No apparent distress. Appears to be sleeping. Safety Checks: Personal items have been mh6 removed The door is open or patient has been placed in a hallway bed/chair. There are no family/friend visitors at this time. 21:30 No apparent distress. Appears to be sleeping. Safety Checks: Personal items have been mh6 removed The door is open or patient has been placed in a hallway bed/chair. There are no family/friend visitors at this time. 21:45 No apparent distress. Appears to be sleeping. Safety Checks: Personal items have been mh6 removed The door is open or patient has been placed in a hallway bed/chair. There are no family/friend visitors at this time. 22:00 No apparent distress. Appears to be sleeping. Safety Checks: Personal items have been mh6 removed The door is open or patient has been placed in a hallway bed/chair. There are no family/friend visitors at this time. 22:15 No apparent distress. Appears to be sleeping. Safety Checks: Personal items have been mh6 removed The door is open or patient has been placed in a hallway bed/chair. There are no family/friend visitors at this time. 22:30 No apparent distress. Appears to be sleeping. Safety Checks: Personal items have been mh6 removed The door is open or patient has been placed in a hallway bed/chair. There are no family/friend visitors at this time. 22:45 No apparent distress. Appears to be sleeping. Safety Checks: Personal items have been mh6 removed The door is open or patient has been placed in a hallway bed/chair. There are no family/friend visitors at this time. 23:00 No apparent distress. Appears to be sleeping. Safety Checks: Personal items have been mh6 removed The door is open or patient has been placed in a hallway bed/chair. There are no family/friend visitors at this time. 23:10 Diet: Patient given snack. Tolerated well. mh6 23:15 Safety Checks: Personal items have been removed The door is open or patient has been mh6 placed in a hallway bed/chair. There are no family/friend visitors at this time. 23:30 Safety Checks: Personal items have been removed The door is open or patient has been mh6 placed in a hallway bed/chair. There are no family/friend visitors at this time. 23:45 No apparent distress. Appears to be sleeping. Safety Checks: Personal items have been mh6 removed The door is open or patient has been placed in a hallway bed/chair. There are no family/friend visitors at this time. [id number] 00:00 No apparent distress. Appears to be sleeping. Safety Checks: Personal items have been mh6 removed The door is open or patient has been placed in a hallway bed/chair. There are no family/friend visitors at this time. 00:15 No apparent distress. Appears to be sleeping. Safety Checks: Personal items have been mh6 removed The door is open or patient has been placed in a hallway bed/chair. There are no family/friend visitors at this time. 00:30 No apparent distress. Appears to be sleeping. Safety Checks: Personal items have been mh6 removed The door is open or patient has been placed in a hallway bed/chair. There are no family/friend visitors at this time. 00:45 No apparent distress. Appears to be sleeping. Safety Checks: Personal items have been mh6 removed The door is open or patient has been placed in a hallway bed/chair. There are no family/friend visitors at this time. 01:00 Safety Checks: Personal items have been removed The door is open or patient has been mh6 placed in a hallway bed/chair. There are no family/friend visitors at this time. Safety Checks:. 01:15 No apparent distress. Appears to be sleeping. Safety Checks: Personal items have been mh6 removed The door is open or patient has been placed in a hallway bed/chair. There are no family/friend visitors at this time. 01:30 No apparent distress. Appears to be sleeping. Safety Checks: Personal items have been mh6 removed The door is open or patient has been placed in a hallway bed/chair. There are no family/friend visitors at this time. 01:45 No apparent distress. Appears to be sleeping. Safety Checks: Personal items have been mh6 removed The door is open or patient has been placed in a hallway bed/chair. There are no family/friend visitors at this time. 02:00 No apparent distress. Appears to be sleeping. Safety Checks: Personal items have been mh6 removed The door is open or patient has been placed in a hallway bed/chair. There are no family/friend visitors at this time. 02:15 No apparent distress. Appears to be sleeping. Safety Checks: Personal items have been mh6 removed The door is open or patient has been placed in a hallway bed/chair. There are no family/friend visitors at this time. 02:30 No apparent distress. Appears to be sleeping. Safety Checks: Personal items have been mh6 removed The door is open or patient has been placed in a hallway bed/chair. There are no family/friend visitors at this time. 02:45 No apparent distress. Appears to be sleeping. Safety Checks: Personal items have been mh6 removed The door is open or patient has been placed in a hallway bed/chair. There are no family/friend visitors at this time. 03:00 Safety Checks: Personal items have been removed The door is open or patient has been mh6 placed in a hallway bed/chair. There are no family/friend visitors at this time. 03:15 No apparent distress. Appears to be sleeping. Safety Checks: Personal items have been mh6 removed The door is open or patient has been placed in a hallway bed/chair. There are no family/friend visitors at this time. 03:30 No apparent distress. Patient is awake. Safety Checks: Personal items have been removed mh6 The door is open or patient has been placed in a hallway bed/chair. There are no family/friend visitors at this time. 03:45 No apparent distress. Resting quietly. Safety Checks: Personal items have been removed mh6 The door is open or patient has been placed in a hallway bed/chair. There are no family/friend visitors at this time. 04:00 No apparent distress. Patient asked for a snack. Safety Checks: Personal items have mh6 been removed The door is open or patient has been placed in a hallway bed/chair. There are no family/friend visitors at this time. 04:00 Patient is awake, not in any distress. Patient asked for a snack. Diet: Patient given mh6 snack. Tolerated well. 04:15 No apparent distress. Appears to be sleeping. Safety Checks: Personal items have been mh6 removed The door is open or patient has been placed in a hallway bed/chair. There are no family/friend visitors at this time. 04:30 No apparent distress. Appears to be sleeping. Safety Checks: Personal items have been mh6 removed The door is open or patient has been placed in a hallway bed/chair. There are no family/friend visitors at this time. 04:45 No apparent distress. Appears to be sleeping. Safety Checks: Personal items have been mh6 removed The door is open or patient has been placed in a hallway bed/chair. There are no family/friend visitors at this time. 05:00 No apparent distress. Appears to be sleeping. Safety Checks: Personal items have been mh6 removed The door is open or patient has been placed in a hallway bed/chair. There are no family/friend visitors at this time. 05:15 No apparent distress. Appears to be sleeping. Safety Checks: Personal items have been mh6 removed The door is open or patient has been placed in a hallway bed/chair. There are no family/friend visitors at this time. 05:30 No apparent distress. Appears to be sleeping. Safety Checks: Personal items have been mh6 removed The door is open or patient has been placed in a hallway bed/chair. There are no family/friend visitors at this time. 05:45 No apparent distress. Appears to be sleeping. Safety Checks: Personal items have been mh6 removed The door is open or patient has been placed in a hallway bed/chair. There are no family/friend visitors at this time. 06:00 No apparent distress. Appears to be sleeping. Safety Checks: Personal items have been mh6 removed The door is open or patient has been placed in a hallway bed/chair. There are no family/friend visitors at this time. 06:15 No apparent distress. Appears to be sleeping. Safety Checks: Personal items have been mh6 removed The door is open or patient has been placed in a hallway bed/chair. There are no family/friend visitors at this time. 06:30 No apparent distress. Appears to be sleeping. Safety Checks: Personal items have been mh6 removed The door is open or patient has been placed in a hallway bed/chair. There are no family/friend visitors at this time. 06:30 Patient slept most of the shift. mh6 06:45 No apparent distress. Appears to be sleeping. Safety Checks: Personal items have been mh6 removed The door is open or patient has been placed in a hallway bed/chair. There are no family/friend visitors at this time. 06:59 Report given to MASSIMO Woods. mh6 07:00 Safety Checks: Personal items have been removed The door is open or patient has been ph placed in a hallway bed/chair. There are no family/friend visitors at this time. 07:15 Safety Checks: Personal items have been removed The door is open or patient has been ph placed in a hallway bed/chair. There are no family/friend visitors at this time. 07:25 called [facility] intake department to check on bed status of the eb transfer, per intake he will be placed on a waiting list until potential discharges tomorrow. 07:30 Safety Checks: Personal items have been removed The door is open or patient has been ph placed in a hallway bed/chair. There are no family/friend visitors at this time. 07:44 called the [facility] office, spoke to Sandy in dispatch, she will page eb the [facility] for an EAD. 07:45 Safety Checks: Personal items have been removed The door is open or patient has been ph placed in a hallway bed/chair. There are no family/friend visitors at this time. 07:49 Deputy Rodriguez called in response to page and will be headed this way to evaluate the eb patient for EAD. 08:00 Safety Checks: Personal items have been removed The door is open or patient has been ph placed in a hallway bed/chair. There are no family/friend visitors at this time. 08:15 Safety Checks: Personal items have been removed The door is open or patient has been ph placed in a hallway bed/chair. There are no family/friend visitors at this time. 08:25 [facility] , Deputy Rodriguez here to evaluate patient. eb 08:30 Safety Checks: Personal items have been removed The door is open or patient has been ph placed in a hallway bed/chair. There are no family/friend visitors at this time. 08:45 Safety Checks: Personal items have been removed The door is open or patient has been ph placed in a hallway bed/chair. There are no family/friend visitors at this time. 09:00 Safety Checks: Personal items have been removed The door is open or patient has been ph placed in a hallway bed/chair. There are no family/friend visitors at this time. 09:15 Safety Checks: Personal items have been removed The door is open or patient has been ph placed in a hallway bed/chair. There are no family/friend visitors at this time. 09:30 Safety Checks: Personal items have been removed The door is open or patient has been ph placed in a hallway bed/chair. There are no family/friend visitors at this time. 09:45 Safety Checks: Personal items have been removed The door is open or patient has been ph placed in a hallway bed/chair. There are no family/friend visitors at this time. 10:00 Safety Checks: Personal items have been removed The door is open or patient has been la1 placed in a hallway bed/chair. There are no family/friend visitors at this time. 10:15 Safety Checks: Personal items have been removed The door is open or patient has been la1 placed in a hallway bed/chair. There are no family/friend visitors at this time. 10:30 Safety Checks: Personal items have been removed The door is open or patient has been la1 placed in a hallway bed/chair. There are no family/friend visitors at this time. 10:45 Safety Checks: Personal items have been removed The door is open or patient has been la1 placed in a hallway bed/chair. There are no family/friend visitors at this time. 11:00 Safety Checks: Personal items have been removed The door is open or patient has been la1 placed in a hallway bed/chair. There are no family/friend visitors at this time. 11:15 Safety Checks: Personal items have been removed The door is open or patient has been la1 placed in a hallway bed/chair. There are no family/friend visitors at this time. 11:30 Safety Checks: Personal items have been removed The door is open or patient has been la1 placed in a hallway bed/chair. There are no family/friend visitors at this time. 11:45 Safety Checks: Personal items have been removed The door is open or patient has been la1 placed in a hallway bed/chair. There are no family/friend visitors at this time. 12:00 Safety Checks: Personal items have been removed The door is open or patient has been la1 placed in a hallway bed/chair. There are no family/friend visitors at this time. 12:15 Safety Checks: Personal items have been removed The door is open or patient has been la1 placed in a hallway bed/chair. There are no family/friend visitors at this time. 12:30 Safety Checks: Personal items have been removed The door is open or patient has been la1 placed in a hallway bed/chair. There are no family/friend visitors at this time. 12:45 Safety Checks: Personal items have been removed The door is open or patient has been la1 placed in a hallway bed/chair. There are no family/friend visitors at this time. 13:00 Safety Checks: Personal items have been removed The door is open or patient has been la1 placed in a hallway bed/chair. There are no family/friend visitors at this time. 13:15 Safety Checks: Personal items have been removed The door is open or patient has been la1 placed in a hallway bed/chair. There are no family/friend visitors at this time. 13:30 Safety Checks: Personal items have been removed The door is open or patient has been la1 placed in a hallway bed/chair. There are no family/friend visitors at this time. 13:45 Safety Checks: Personal items have been removed The door is open or patient has been la1 placed in a hallway bed/chair. There are no family/friend visitors at this time. 14:00 Safety Checks: Personal items have been removed The door is open or patient has been la1 placed in a hallway bed/chair. There are no family/friend visitors at this time. 14:15 Safety Checks: Personal items have been removed The door is open or patient has been la1 placed in a hallway bed/chair. There are no family/friend visitors at this time. 14:30 Safety Checks: Personal items have been removed The door is open or patient has been la1 placed in a hallway bed/chair. There are no family/friend visitors at this time. 14:45 Safety Checks: Personal items have been removed The door is open or patient has been la1 placed in a hallway bed/chair. There are no family/friend visitors at this time. 15:00 Safety Checks: Personal items have been removed The door is open or patient has been la1 placed in a hallway bed/chair. There are no family/friend visitors at this time. 15:15 Safety Checks: Personal items have been removed The door is open or patient has been la1 placed in a hallway bed/chair. There are no family/friend visitors at this time. 15:30 Safety Checks: Personal items have been removed The door is open or patient has been la1 placed in a hallway bed/chair. There are no family/friend visitors at this time. 15:45 Safety Checks: Personal items have been removed The door is open or patient has been la1 placed in a hallway bed/chair. There are no family/friend visitors at this time. 16:00 Safety Checks: Personal items have been removed The door is open or patient has been la1 placed in a hallway bed/chair. There are no family/friend visitors at this time. 16:15 Safety Checks: Personal items have been removed The door is open or patient has been la1 placed in a hallway bed/chair. There are no family/friend visitors at this time. 16:30 Safety Checks: Personal items have been removed The door is open or patient has been la1 placed in a hallway bed/chair. There are no family/friend visitors at this time. 16:45 Safety Checks: Personal items have been removed The door is open or patient has been la1 placed in a hallway bed/chair. There are no family/friend visitors at this time. 17:00 Safety Checks: Personal items have been removed The door is open or patient has been la1 placed in a hallway bed/chair. There are no family/friend visitors at this time. 17:15 Safety Checks: Personal items have been removed The door is open or patient has been la1 placed in a hallway bed/chair. There are no family/friend visitors at this time. 17:30 Safety Checks: Personal items have been removed The door is open or patient has been la1 placed in a hallway bed/chair. There are no family/friend visitors at this time. 17:45 Safety Checks: Personal items have been removed The door is open or patient has been la1 placed in a hallway bed/chair. There are no family/friend visitors at this time. 18:00 Safety Checks: Personal items have been removed The door is open or patient has been la1 placed in a hallway bed/chair. There are no family/friend visitors at this time. 18:15 Safety Checks: Personal items have been removed The door is open or patient has been la1 placed in a hallway bed/chair. There are no family/friend visitors at this time. 18:30 Safety Checks: Personal items have been removed The door is open or patient has been la1 placed in a hallway bed/chair. There are no family/friend visitors at this time. 18:45 Safety Checks: Personal items have been removed The door is open or patient has been la1 placed in a hallway bed/chair. There are no family/friend visitors at this time. 19:00 Safety Checks: Personal items have been removed The door is open or patient has been la1 placed in a hallway bed/chair. There are no family/friend visitors at this time. 19:15 Safety checks: Items removed: yes. Door open/sign placed on door: yes. Family/friend mt present: no. 19:30 Safety checks: Items removed: yes. Door open/sign placed on door: yes. Family/friend mt present: no. 19:45 Safety checks: Items removed: yes. Door open/sign placed on door: yes. Family/friend mt present: Other: MASSIMO Brown in room speaking with patient. 20:00 Safety checks: Items removed: yes. Door open/sign placed on door: yes. Family/friend mt present: no. 20:15 Safety checks: Items removed: yes. Door open/sign placed on door: yes. Family/friend mt present: no. 20:30 Safety checks: Items removed: yes. Door open/sign placed on door: yes. Family/friend mt present: no. 20:45 Safety checks: Items removed: yes. Door open/sign placed on door: yes. Family/friend mt present: no. 21:00 Safety checks: Items removed: yes. Door open/sign placed on door: yes. Family/friend mt present: no. 21:15 Safety checks: Items removed: yes. Door open/sign placed on door: yes. Family/friend mt present: no. 21:30 Safety checks: Items removed: yes. Door open/sign placed on door: yes. Family/friend mt present: no. 21:45 Safety checks: Items removed: yes. Door open/sign placed on door: yes. Family/friend mt present: no. 22:00 Safety checks: Items removed: yes. Door open/sign placed on door: yes. Family/friend mt present: no. 22:15 Safety checks: Items removed: yes. Door open/sign placed on door: yes. Family/friend mt present: no. 22:30 Safety checks: Items removed: yes. Door open/sign placed on door: yes. Family/friend mt present: no. 22:45 Safety checks: Items removed: yes. Door open/sign placed on door: yes. Family/friend mt present: no. 23:00 Safety checks: Items removed: yes. Door open/sign placed on door: yes. Family/friend mt present: no. 23:15 Safety checks: Items removed: yes. Door open/sign placed on door: yes. Family/friend mt present: no. 23:30 Safety checks: Items removed: yes. Door open/sign placed on door: yes. Family/friend mt present: no. 23:45 Safety checks: Items removed: yes. Door open/sign placed on door: yes. Family/friend mt present: no. 07 00:00 Safety checks: Items removed: yes. Door open/sign placed on door: yes. Family/friend mt present: no. 00:15 Safety checks: Items removed: yes. Door open/sign placed on door: yes. Family/friend mt present: no. 00:30 Safety checks: Items removed: yes. Door open/sign placed on door: yes. Family/friend mt present: Other: Patient is sleeping. 01:15 Safety checks: Items removed: yes. Door open/sign placed on door: yes. Family/friend cb2 present: Other: pt resting with eyes closed. 01:31 Safety checks: Items removed: yes. Family/friend present: no. cb2 01:43 Safety checks: Items removed: yes. Safety checks: Door open/sign placed on door: yes. cb2 Family/friend present: no. 02:00 Safety checks: Items removed: yes. Door open/sign placed on door: yes. Family/friend cb2 present: no. 02:15 Safety checks: Items removed: yes. Door open/sign placed on door: yes. Family/friend cb2 present: no. 02:29 Safety checks: Items removed: yes. Door open/sign placed on door: yes. Family/friend cb2 present: no. 02:47 Safety checks: Items removed: yes. Door open/sign placed on door: yes. Family/friend cb2 present: no. 03:02 Safety checks: Items removed: yes. Door open/sign placed on door: yes. Family/friend cb2 present: no. 03:15 Safety checks: Items removed: yes. Door open/sign placed on door: yes. Family/friend mt present: no. 03:30 Safety checks: Items removed: yes. Door open/sign placed on door: yes. Family/friend mt present: no. 03:45 Safety checks: Items removed: yes. Door open/sign placed on door: yes. Family/friend mt present: no. 04:00 Safety checks: Items removed: yes. Door open/sign placed on door: yes. Family/friend mt present: no. 04:15 Safety checks: Items removed: yes. Door open/sign placed on door: yes. Family/friend mt present: no. 04:30 Safety checks: Items removed: yes. Door open/sign placed on door: yes. Family/friend mt present: no. 04:45 Safety checks: Items removed: yes. Door open/sign placed on door: yes. Family/friend mt present: no. 04:47 Primary Nurse role handed off by Peggy Baumann RN bs1 04:47 Ai Buck RN is Primary Nurse. bs1 05:00 Safety checks: Items removed: yes. Door open/sign placed on door: yes. Family/friend mt present: no. 05:15 Safety checks: Items removed: yes. Door open/sign placed on door: yes. Family/friend mt present: no. 05:30 Safety checks: Items removed: yes. Door open/sign placed on door: yes. Family/friend mt present: no. 05:45 Safety checks: Items removed: yes. Door open/sign placed on door: yes. Family/friend mt present: no. 06:00 Safety checks: Items removed: yes. Door open/sign placed on door: yes. Family/friend mt present: no. 06:15 Safety checks: Items removed: yes. Door open/sign placed on door: yes. Family/friend mt present: no. 06:30 Safety checks: Items removed: yes. Door open/sign placed on door: yes. Family/friend mt present: no. 07:00 Safety Checks: Personal items have been removed The door is open or patient has been hj placed in a hallway bed/chair. There are no family/friend visitors at this time. 07:00 Safety checks: Items removed: yes. Door open/sign placed on door: yes. Family/friend mh5 present: no. 07:15 Safety Checks: Personal items have been removed The door is open or patient has been hj placed in a hallway bed/chair. There are no family/friend visitors at this time. 07:15 Safety checks: Items removed: yes. Door open/sign placed on door: yes. Family/friend mh5 present: no. 07:30 Safety Checks: Personal items have been removed The door is open or patient has been hj placed in a hallway bed/chair. There are no family/friend visitors at this time. 07:30 Safety checks: Items removed: yes. Door open/sign placed on door: yes. Family/friend mh5 present: no. 07:45 Safety Checks: Personal items have been removed The door is open or patient has been hj placed in a hallway bed/chair. There are no family/friend visitors at this time. 07:58 Safety Checks: Personal items have been removed The door is open or patient has been hj placed in a hallway bed/chair. There are no family/friend visitors at this time. 08:00 Safety checks: Items removed: yes. Door open/sign placed on door: yes. Family/friend mh5 present: no. 08:30 Safety checks: Items removed: yes. Door open/sign placed on door: yes. Family/friend mh5 present: no. 08:43 spoke with Sergio at [facility], still no bed available, pt will remain on bd waiting list until one becomes avilable. 09:00 Safety checks: Items removed: yes. Door open/sign placed on door: yes. Family/friend mh5 present: no. 09:15 Safety checks: Items removed: yes. Door open/sign placed on door: yes. Family/friend mh5 present: no. 09:30 Safety checks: Items removed: yes. Door open/sign placed on door: yes. Family/friend mh5 present: no. 10:00 Safety checks: Items removed: yes. Door open/sign placed on door: yes. Family/friend mh5 present: no. 10:16 Safety checks: Items removed: yes. Door open/sign placed on door: yes. Family/friend mh5 present: no. 10:25 Safety checks: Items removed: yes. Door open/sign placed on door: yes. Family/friend mh5 present: no. 10:30 Safety checks: Items removed: yes. Door open/sign placed on door: yes. Family/friend mh5 present: no. 10:45 Safety checks: Items removed: yes. Door open/sign placed on door: yes. Family/friend mh5 present: no. 11:00 Safety checks: Items removed: yes. Door open/sign placed on door: yes. Family/friend mh5 present: no. 11:15 Safety checks: Items removed: yes. Door open/sign placed on door: yes. Family/friend mh5 present: no. 11:30 Safety checks: Items removed: yes. Door open/sign placed on door: yes. Family/friend mh5 present: no. 11:45 Safety checks: Items removed: yes. Door open/sign placed on door: yes. Family/friend mh5 present: no. 12:00 Safety checks: Items removed: yes. Door open/sign placed on door: yes. Family/friend mh5 present: no. 12:15 Safety checks: Items removed: yes. Door open/sign placed on door: yes. Family/friend mh5 present: no. 12:30 Safety checks: Items removed: yes. Door open/sign placed on door: yes. Family/friend dh3 present: no. 12:45 Safety checks: Items removed: yes. Door open/sign placed on door: yes. Family/friend dh3 present: no. 13:00 Safety checks: Items removed: yes. Door open/sign placed on door: yes. Family/friend dh3 present: no. 13:15 Safety checks: Items removed: yes. Door open/sign placed on door: yes. Family/friend mh5 present: no. 13:30 Safety checks: Items removed: yes. Door open/sign placed on door: yes. Family/friend mh5 present: no. 13:45 Safety checks: Items removed: yes. Door open/sign placed on door: yes. Family/friend mh5 present: no. 14:00 Safety checks: Items removed: yes. Door open/sign placed on door: yes. Family/friend mh5 present: no. 14:00 IV discontinued, intact, bleeding controlled, No redness/swelling at site. Pressure em dressing applied. 14:15 Safety checks: Items removed: yes. Door open/sign placed on door: yes. Family/friend mh5 present: no. 14:30 Safety checks: Items removed: yes. Door open/sign placed on door: yes. Family/friend mh5 present: no. 14:45 Safety checks: Items removed: yes. Door open/sign placed on door: yes. Family/friend mh5 present: no. 15:00 Safety checks: Items removed: yes. Door open/sign placed on door: yes. Family/friend mh5 present: no. 15:15 Safety checks: Items removed: yes. Door open/sign placed on door: yes. Family/friend mh5 present: no. 15:30 Safety checks: Items removed: yes. Door open/sign placed on door: yes. Family/friend mh5 present: no. 15:45 Safety checks: Items removed: yes. Door open/sign placed on door: yes. Family/friend mh5 present: no. 16:00 Safety checks: Items removed: yes. Door open/sign placed on door: yes. Family/friend mh5 present: no. 16:15 Safety checks: Items removed: yes. Door open/sign placed on door: yes. Family/friend mh5 present: no. 16:30 Safety checks: Items removed: yes. Door open/sign placed on door: yes. Family/friend mh5 present: no. 16:45 Safety checks: Items removed: yes. Door open/sign placed on door: yes. Family/friend mh5 present: no. 17:00 Safety checks: Items removed: yes. Door open/sign placed on door: yes. Family/friend mh5 present: no. 17:15 Safety checks: Items removed: yes. Door open/sign placed on door: yes. Family/friend mh5 present: no. 17:48 contacted ems for transfer to [facility]. [place] [facility] will not take pt bd without law enforcement pt is to be transferred by [facility]. 18:00 Safety checks: Items removed: yes. Door open/sign placed on door: yes. Family/friend mh5 present: no. 18:15 Safety checks: Items removed: yes. Door open/sign placed on door: yes. Family/friend mh5 present: no. 18:30 Safety checks: Items removed: yes. Door open/sign placed on door: yes. Family/friend mh5 present: no. 18:45 Safety checks: Items removed: yes. Door open/sign placed on door: yes. Family/friend mh5 present: no. 19:17 Safety checks: Items removed: yes. Door open/sign placed on door: yes. Family/friend cb2 present: no. 19:37 Safety checks: Items removed: yes. Door open/sign placed on door: yes. Family/friend cb2 present: no. Administered Medications: 02/05 16:29 Drug: Potassium Effervescent Tablet 50 mEq Route: PO; ph 19:15 Follow up: Response: No adverse reaction ph 02/06 10:25 Drug: Ativan 1 mg Route: PO; rb1 02/08 03:22 Follow up: Response: No adverse reaction bs1 02/06 13:47 Drug: Ativan 1 mg Route: PO; rb1 02/08 03:22 Follow up: Response: No adverse reaction bs1 02/07 20:00 Drug: Ativan 1 mg Route: PO; la1 21:05 Follow up: Response: No adverse reaction la1 Output: 02/08 02:38 Urine: 600ml (Voided); Total: 600ml. cb2 05:20 Urine: 800ml (Voided); Total: 1400ml. mt Outcome: 14:07 ER care complete, transfer ordered by rn 19:48 Discharged to [facility], to [facility] bs 19:48 Condition: stable 19:48 Instructed on follow up and referral plans. the need for transfer, Demonstrated understanding of instructions. 19:51 Patient left the ED. bs1 Signatures: Prema Mcknight, RAD-C TRACTOR TRAILER DRIVER-Ckb Mayte Maldonado, Robert, FAMILY COACH FAMILY COACH Bridgett Weaver Maria ms Nieto, Roman, MD MD rn Calderon, Sangita, RN RN aa5 Indira, Velia, FAMILY COACH FAMILY COACH ed1 Luzma Mckeon, yardage estimator EKG Ttc Kevin Laughlin, RN RN la1 Danna Mar, RN RN ak1 Peggy Baumann, RN RN Alex, Kerwin, RN RN hj Maria Esther Boyd, RN RN Raul Ramos, EMILEE CARDIOVASCULAR RADIOLOGIC TECHNOLOGIST pm1 Willi Hercules Maria 5 Camilo Card, RN RN jl7 Mayito Tuttle, [facility] Rehman, Ashley dh3 Janki Michael, RN Ai Justin ea RN RN bs1 Gladys Arita Maria 6 Corrections: (The following items were deleted from the chart) 02/05 14:10 14:08 Presenting complaint: Patient states: "I just feel really anxious and I am aa5 paranoid". aa5 20:55 20:54 Safety checks: Items removed: yes. Door open/sign placed on door: yes. oe Family/friend present: no. oe 22: 20:56 Safety checks: Items removed: yes. Door open/sign placed on door: yes. oe Family/friend present: no. oe 22: 20:57 Safety checks: Items removed: yes. Door open/sign placed on door: yes. oe Family/friend present: no. oe 22: 20:58 Safety checks: Items removed: yes. Door open/sign placed on door: yes. oe Family/friend present: no. oe 22: 20:58 Safety checks: Items removed: yes. Door open/sign placed on door: yes. oe Family/friend present: no. oe 22:08 20:59 Safety checks: Items removed: yes. Door open/sign placed on door: yes. oe Family/friend present: no. oe 22: 20:59 Safety checks: Items removed: yes. Door open/sign placed on door: yes. oe Family/friend present: no. oe 02/06 00:14 02/05 23:40 Safety checks: Items removed: yes. Door open/sign placed on door: yes. oe Family/friend present: no. oe 02/06 00:14 02/05 23:40 Safety checks: Items removed: yes. oe oe 02/06 00:31 02/05 23:40 Safety checks: Items removed: yes. Door open/sign placed on door: yes. oe Family/friend present: no. oe 02/06 00:32 02/05 23:41 Safety checks: Items removed: yes. Door open/sign placed on door: yes. oe Family/friend present: no. oe 02/06 00:45 00:32 Safety checks: Items removed: yes. Door open/sign placed on door: yes. oe Family/friend present: no. oe 00:58 00:32 Safety checks: Items removed: yes. Door open/sign placed on door: yes. oe Family/friend present: no. oe 02:11 02/05 23:45 Safety checks: Items removed: yes. oe oe 02/06 02:51 02:12 Safety checks: Items removed: yes. Door open/sign placed on door: yes. oe Family/friend present: no. oe 04:04 03:26 Safety checks: Items removed: yes. Door open/sign placed on door: yes. oe Family/friend present: no. oe 04:04 03:26 Safety checks: Items removed: yes. Door open/sign placed on door: yes. oe Family/friend present: no. oe 04:04 03:26 Safety checks: Items removed: yes. Door open/sign placed on door: yes. oe Family/friend present: no. oe 04:21 04:14 Safety checks: Items removed: yes. Door open/sign placed on door: yes. oe Family/friend present: no. oe 06:50 05:08 Safety checks: Items removed: yes. Door open/sign placed on door: yes. oe Family/friend present: no. oe 06:50 05:08 Safety checks: Items removed: yes. Door open/sign placed on door: yes. oe Family/friend present: no. oe 07:20 0504 20:45 Safety checks: Items removed: yes. Door open/sign placed on door: yes. jl7 Family/friend present: no. oe 02/06 07:20 06:55 Safety checks: Items removed: yes. Door open/sign placed on door: yes. jl7 Family/friend present: no. oe 02/07 00:35 00:00 Patient is sleeping.; mh6 mh6 00:53 02/06 23:15 Safety Checks: Personal items have been removed The door is open or patient mh6 has been placed in a hallway bed/chair. There are no family/friend visitors at this time mh6 02/07 00:59 02/06 20:20 Assumed patient care. mh6 mh6 02/07 01:01 02/06 20:00 Assumed patient care. mh6 mh6 02/07 01:10 02/06 20:00 Assumed patient care. Patient is sleeping, not in any distress. 6 6 02/07 02:19 02/06 20:20 Diet: Patient given snack. Tolerated well 6 6 02/07 02:19 02/06 23:10 Diet: Patient given snack. Tolerated well 6 6 02/07 02:25 00:45 No apparent distress. Appears to be sleeping. 6 6 03:53 02/06 19:45 Musculoskeletal: Capillary refill < 3 seconds, mh6 6 02/07 04:15 03:56 No apparent distress. 6 6 07:49 07:44 called the [facility] office, spoke to Sandy in dispatch, she eb will page the [facility] for an EAD. eb 09:49 09:19 Reassessment: Patient appears in no apparent distress at this time. Patient ph and/or family updated on plan of care and expected duration. Pain level reassessed. Patient is alert, oriented x 3, equal unlabored respirations, skin warm/dry/pink. ph 02/08 12:48 12:30 Safety checks: Items removed: Door open/sign placed on door: yes. Family/friend dh3 present: no. dh3 15:50 14:00 Reassessment: Patient appears in no apparent distress at this time. Patient em and/or family updated on plan of care and expected duration. Pain level reassessed. Patient is alert, oriented x 3, equal unlabored respirations, skin warm/dry/pink. em 17:58 17:48 contacted ems for transfer to [facility]. [place] [facility] will not take bd pt without law emforcement. pt is to be transferred by [facility] deputy. bd
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
[2018-02-08 20:17] VITALS: BP 124/69; TEMP 98.4; O2SAT 96
== END 2018-02-08 19:51 ==
LOC: ER 14:03
DX: R45.850 Homicidal ideations (principal); R45.851 Suicidal ideations; F31.9 Bipolar disorder, unspecified; F20.9 Schizophrenia, unspecified; F17.210 Nicotine dependence, cigarettes, uncomplicated
CPT/HCPCS: 36415; 80048; 80076; 80307; 80320; 80329; 81003; 84132; 85025; 85610; 85730; 93005; 99285; J3486

== ENCOUNTER 2018-03-08 21:25 | Emergency (ER) | payer SELFPAY ==
[2018-03-08] MEDS ORDERED: WATER FOR INJ,STERILE 10 ML ONE (21:52)
[2018-03-08] MEDS ORDERED: ZIPRASIDONE MESYLA 20 MG/VIAL IM ONE (21:52)
[2018-03-08 22:22] LABS: Absolute Lymphocytes (CBC) 2.8 K/uL (0.7-4.9); Absolute Neutrophil 5.8 K/uL (1.8-8.0); Basophils % 0.2 % (0-1.3); Eosinophils % 3.3 % (0-4.4); Hematocrit 38.4 % (39.6-49.0); Lymphocytes % 28.2 % (15.3-44.8); MCH 31.3 pg (27.0-35.0); MCV 89.8 fL (80-100); MPV 7.7 fL (7.6-11.3); Monocytes % 10.2 % (3.3-12.3); RBC Red Blood Cell Count 4.27 M/uL (4.33-5.43)
[2018-03-08 22:26] LABS: Protime INR 0.97
[2018-03-08 22:28] LABS: Bicarbonate 27 mEq/L (21-31); Glucose Level 104 mg/dL (65-120); Potassium 3.7 mEq/L (3.6-5.0); Sodium Level 136 mEq/L (135-145)
[2018-03-08 22:34] LABS: ALT/SGPT 67 IU/L (10-60); AST/SGOT 104 IU/L (10-42); Albumin 4.5 g/dL (3.2-5.5); Alkaline Phosphatase 66 IU/L (42-121); BUN Blood Urea Nitrogen 16 mg/dL (6-20); Bilirubin Direct 0.3 mg/dL (0-0.2); Bilirubin Total 2.2 mg/dL (0.3-1.2); Protein, Total 7.9 g/dL (6.0-8.3)
[2018-03-08 22:46] LABS: Alcohol Serum/Plasma < 10 mg/dl
[2018-03-09 01:37] LABS: Urine Blood NEGATIVE (NEG); Urine Glucose NEGATIVE (NEG); Urine Protein NEGATIVE (NEG)
[2018-03-09 01:37] LABS: Barbiturates NEGATIVE; Benzodiazepines POSITIVE; Cocaine NEGATIVE; Opiates NEGATIVE; Phencyclidine NEGATIVE; THC Cannibis POSITIVE
[2018-03-09 01:56] LABS: METHAMPHETAM POSITIVE (NEGATIVE)
[2018-03-09] MEDS ORDERED: IBUPROFEN 400 MG TAB ONE ×2 (05:22→21:53)
[2018-03-09] MEDS ORDERED: LORazepam 2 MG/ML VIAL ONE (10:28)
[2018-03-09] MEDS ORDERED: ZIPRASIDONE MESYLA 20 MG/VIAL IM ONE (13:12)
[2018-03-09] MEDS ORDERED: WATER FOR INJ,STERILE 10 ML ONE (13:13)
--- NOTE | 2018-03-09 13:44 | EKG ---
Test Date: 2018-03-08 Test Time: 22:06:13 Cafeteria Aide: NELLIE MEASUREMENT RESULTS: Intervals: Rate: 87 MS: 148 QRSD: 92 QT: 374 QTc: 450 [place]: P: 71 MS: 148 QRS: 61 T: 39 INTERPRETIVE STATEMENTS: Normal sinus rhythm Normal ECG Compared to ECG 02/05/2018 14:30:48 No significant changes Electronically Signed On 03-09-18 13:40:58 CDT by Joe Miramontes
--- NOTE | 2018-03-10 00:48 | EDPHYS ---
Physician Documentation [facility] Name: Tanner Lopes Age: 37 yrs Sex: Male : 1980 Arrival Date: 03/08/2018 Time: 21:30 Bed 8 Private MD: ED Physician Triston Weaver HPI: 03/08 22:00 This 37 yrs old Male presents to ER via Ambulatory with complaints of Suicidal pm1 Ideation. 22:00 The patient presents to the emergency department with suicide ideation, but the patient pm1 has no formulated plan. Onset: The symptoms/episode began/occurred today. Past psychiatric history: Prior diagnosis: bipolar disorder, schizophrenia, Psychiatric medications include: none, Primary psychiatric physician: the patient does not have a primary psychiatric physician, the patient has a previous inpatient psychiatric history, last month, at Patient doesn't recall. Associated signs and symptoms: The patient has no apparent associated signs or symptoms. Severity of symptoms: Pain is currently a 0 / 10. The patient has not experienced similar symptoms in the past. Patient reports that he is suicidal. he cut his wrists with a knife and held a knife to his throat in front of the officer. 03/09 15:00 Patient reports homicidal ideation and threatening to kill and hurt people that have pm1 crossed him. Patient in particular is threatening to harm people that live at his home. He reports to have people that rent from him. Historical: - Allergies: 03/08 21:38 No Known Allergies; fc - Home Meds: 21:38 trazadone [Active]; Vistaril Oral [Active]; gabapentin Oral [Active]; Hydroxyzine Oral fc [Active]; - PMHx: 21:38 Anxiety; Bipolar disorder; Depression; Schizophrenia; fc - Immunization history:: Last tetanus immunization: unknown. - Social history:: Smoking status: Patient uses tobacco products, Patient uses alcohol, on a daily basis. street drugs, marijuana. - Ebola Screening: : Patient negative for fever greater than or equal to 101.5 degrees Fahrenheit, and additional compatible Ebola Virus Disease symptoms Patient denies exposure to infectious person Patient denies travel to an Ebola-affected area in the 21 days before illness onset. ROS: 22:00 Constitutional: Negative for fever, chills, and weight loss, Eyes: Negative for injury, pm1 pain, redness, and discharge, ENT: Negative for injury, pain, and discharge, Neck: Negative for injury, pain, and swelling, Cardiovascular: Negative for chest pain, palpitations, and edema, Respiratory: Negative for shortness of breath, cough, wheezing, and pleuritic chest pain, Abdomen/GI: Negative for abdominal pain, nausea, vomiting, diarrhea, and constipation, Back: Negative for injury and pain, MS/Extremity: Negative for injury and deformity. 22:00 Neuro: Negative for headache, weakness, numbness, tingling, and seizure. 22:00 Skin: Positive for abrasion(s), of the bilateral wrists. Exam: 22:00 Constitutional: This is a well developed, well nourished patient who is awake, alert, pm1 and in no acute distress. Head/Face: Normocephalic, atraumatic. Eyes: Pupils equal round and reactive to light, extra-ocular motions intact. Lids and lashes normal. Conjunctiva and sclera are non-icteric and not injected. Cornea within normal limits. Periorbital areas with no swelling, redness, or edema. ENT: Nares patent. No nasal discharge, no septal abnormalities noted. Tympanic membranes are normal and external auditory canals are clear. Oropharynx with no redness, swelling, or masses, exudates, or evidence of obstruction, uvula midline. Mucous membranes moist. Neck: Trachea midline, no thyromegaly or masses palpated, and no cervical lymphadenopathy. Supple, full range of motion without nuchal rigidity, or vertebral point tenderness. No Meningismus. Chest/axilla: Normal chest wall appearance and motion. Nontender with no deformity. No lesions are appreciated. Cardiovascular: Regular rate and rhythm with a normal S1 and S2. No gallops, murmurs, or rubs. Normal PMI, no JVD. No pulse deficits. Respiratory: Lungs have equal breath sounds bilaterally, clear to auscultation and percussion. No rales, rhonchi or wheezes noted. No increased work of breathing, no retractions or nasal flaring. Abdomen/GI: Soft, non-tender, with normal bowel sounds. No distension or tympany. No guarding or rebound. No evidence of tenderness throughout. Back: No spinal tenderness. No costovertebral tenderness. Full range of motion. 22:00 Skin: injury, abrasion(s), superficial to bilateral wrists. 22:00 Neuro: Orientation: is normal, Motor: is normal, moves all fours. 22:00 Psych: Behavior/mood is cooperative, angry, Affect is animated. Vital Signs: 21:32 Pulse 89; Resp 20; Temp 97.2(O); Pulse Ox 100% on R/A; Weight 98.88 kg (R); Height 6 fc ft. 1 in. (185.42 cm) (R); Pain 7/10; 22:13 BP 125 / 76; Pulse 88; Resp 20; Temp 97.2; Pulse Ox 95% on R/A; Pain 0/10; ak1 03/09 00:39 BP 109 / 67; Pulse 71; Resp 18; Pulse Ox 98% on R/A; oe 04:16 BP 116 / 66; Pulse 79; Resp 20; Temp 97.8(TE); Pulse Ox 98% on R/A; oe 07:41 BP 110 / 70; Pulse 71; Resp 17; Temp 98.0(TE); Pulse Ox 99% on R/A; jb1 11:28 BP 120 / 69; Pulse 77; Resp 17; Pulse Ox 99% on R/A; jb1 15:26 BP 109 / 59; Pulse 69; Resp 17; Pulse Ox 100% on R/A; jb1 17:43 BP 105 / 62; Pulse 65; Resp 17; Pulse Ox 99% on R/A; jb1 21:27 BP 127 / 69; Pulse 76; Resp 16; Pulse Ox 98% ; Pain 0/10; cc 03/08 21:32 Body Mass Index 28.76 (98.88 kg, 185.42 cm) fc MDM: 03/08 22:09 Patient medically screened. pm1 03/10 00:47 ED course: labs reviewed. Patient is medically cleared. Patient however made lewd and ps1 suggestive comments to sitter and then started masturbating in the room. Patient left bedside naked and had to be returned to room. Contacted police department as patient demonstrated understanding of his situation and insight. Patient has been medically cleared and is going to be detained into police custody until he can be seen by psychiatry. . 00:50 Data reviewed: vital signs, nurses notes, lab test result(s). ps1 03/08 22:02 Order name: Acetaminophen; Complete Time: 02:08 bb 03/08 22:02 Order name: Basic Metabolic Panel; Complete Time: 02:08 03/08 22:02 Order name: CBC with Diff; Complete Time: 02:08 03/08 22:02 Order name: ETOH Level; Complete Time: 02:08 03/08 22:02 Order name: Hepatic Function; Complete Time: 02:08 03/08 22:02 Order name: PT-INR; Complete Time: 02:08 03/08 22:02 Order name: Ptt, Activated; Complete Time: 02:08 03/08 22:02 Order name: Salicylate; Complete Time: 02:08 03/08 22:02 Order name: Urine Drug Screen; Complete Time: 02:08 03/09 01:00 Order name: Urine Dipstick--Ancillary (enter results); Complete Time: 02:08 [facility] 03/08 22:02 Order name: EKG; Complete Time: 22:03 03/08 22:02 Order name: EKG - Nurse/Tech; Complete Time: 22:24 03/08 22:02 Order name: IV Saline Lock; Complete Time: 22:24 03/08 22:02 Order name: Labs collected and sent; Complete Time: 22:24 03/08 22:02 Order name: Urine Dipstick-Ancillary (obtain specimen); Complete Time: 01:06 03/09 07:16 Order name: Diet Regular; Complete Time: 07:17 [facility] 03/09 09:44 Order name: Diet Regular; Complete Time: 09:44 03/09 12:27 Order name: Diet Regular; Complete Time: 12:28 03/09 12:48 Order name: Diet Regular; Complete Time: 12:49 [facility] 03/09 17:26 Order name: Diet Regular; Complete Time: 17:27 bd Administered Medications: 03/08 22:00 Drug: Geodon 20 mg Route: IM; Site: left deltoid; lp1 06 01:05 Follow up: Response: No adverse reaction ak1 05:21 Drug: Motrin 800 mg Route: PO; ak1 05:41 Follow up: Response: No adverse reaction ak1 10:32 Drug: Ativan 2 mg Route: IVP; Site: right forearm; sg 13:19 Drug: Geodon 20 mg Route: IM; Site: left deltoid; iw 21:53 Drug: Ibuprofen 400 mg Route: PO; mg2 Disposition: 03/10 00:47 Co-signature as Attending Physician, Bandar Hager MD. ps1 Disposition: 03/10/18 00:47 Discharged to Law Enforcement. Impression: Behavioral Problem. - Condition is Stable. - Discharge Instructions: Self-Destructive Behavior. - Medication Reconciliation Form, Thank You Letter, Antibiotic Education, Prescription Opioid Use form. - Follow up: Private Physician; When: As needed; Reason: Recheck today's complaints, Continuance of care, Re-evaluation by your physician. - Problem is an acute exacerbation. - Symptoms have improved. Signatures: Dispatcher [employer] EDMS Jesus Ferro, RN RN sg Re Smyth RN RN aa1 Dilcia Riojas, RN RN fc Mari Rangel RN RN bb Glenda Jalloh RN MASSIMO iw Nick Ocampo MD MD rn Pena, Laura RN RN lp1 Danna Mar RN RN ak1 Raul Morrison, DISPUTE RESOLUTION ANALYST DISPUTE RESOLUTION ANALYST pm1 Bandar Hager MD MD ps1 Triston Weaver MD MD tw4 Erasmo Oglesby RN RN mg2 Corrections: (The following items were deleted from the chart) 00:51 00:47 03/10/2018 00:47 Discharged to Home. Impression: Behavioral Problem. Condition is ps1 Stable. Forms are Medication Reconciliation Form, Thank You Letter, Antibiotic Education, Prescription Opioid Use. Follow up: Private Physician; When: As needed; Reason: Recheck today's complaints, Continuance of care, Re-evaluation by your physician. Problem is an acute exacerbation. Symptoms have improved. ps1 01:04 00:51 03/10/2018 00:47 Discharged to Law Enforcement. Impression: Behavioral Problem. aa1 Condition is Stable. Forms are Medication Reconciliation Form, Thank You Letter, Antibiotic Education, Prescription Opioid Use. Follow up: Private Physician; When: As needed; Reason: Recheck today's complaints, Continuance of care, Re-evaluation by your physician. Problem is an acute exacerbation. Symptoms have improved. ps1
--- NOTE | 2018-03-10 00:48 | ER ---
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 open or patient has been tw2 placed in a hallway bed/chair. There are no family/friend visitors at this time Sitter present at this time. 08:00 Safety checks: Items removed: yes. Door open/sign placed on door: yes. Family/friend jb1 present: no. 08:15 Safety Checks: Personal items have been removed. The door is open or patient has been tw2 placed in a hallway bed/chair. There are no family/friend visitors at this time Sitter present at this time. 08:15 Safety checks: Items removed: yes. Door open/sign placed on door: yes. Family/friend jb1 present: no. 08:30 Safety Checks: Personal items have been removed. The door is open or patient has been tw2 placed in a hallway bed/chair. There are no family/friend visitors at this time Sitter present at this time. 08:30 Safety checks: Items removed: yes. Door open/sign placed on door: yes. Family/friend jb1 present: no. 08:45 Safety Checks: Personal items have been removed. The door is open or patient has been tw2 placed in a hallway bed/chair. There are no family/friend visitors at this time Sitter present at this time. 08:47 Safety checks: Items removed: yes. Door open/sign placed on door: yes. Family/friend jb1 present: no. 09:00 Safety Checks: Personal items have been removed. The door is open or patient has been tw2 placed in a hallway bed/chair. There are no family/friend visitors at this time Sitter present at this time. 09:08 Safety checks: Items removed: yes. Door open/sign placed on door: yes. Family/friend jb1 present: no. 09:15 Safety Checks: Personal items have been removed. The door is open or patient has been tw2 placed in a hallway bed/chair. There are no family/friend visitors at this time Sitter present at this time. 09:28 Safety checks: Items removed: yes. Door open/sign placed on door: yes. Family/friend jb1 present: no. 09:30 Safety Checks: Personal items have been removed. The door is open or patient has been tw2 placed in a hallway bed/chair. There are no family/friend visitors at this time Sitter present at this time. 09:31 No apparent distress. pt walking to bathroom with sitter Shelly Marquez. tw2 09:45 Safety Checks: Personal items have been removed. The door is open or patient has been sg placed in a hallway bed/chair. There are no family/friend visitors at this time Sitter present at this time. 10:00 Safety Checks: Personal items have been removed. The door is open or patient has been sg placed in a hallway bed/chair. There are no family/friend visitors at this time Sitter present at this time. 10:11 Safety checks: Items removed: yes. Door open/sign placed on door: yes. Family/friend jb1 present: no. 10:15 Safety Checks: Personal items have been removed. The door is open or patient has been sg placed in a hallway bed/chair. There are no family/friend visitors at this time Sitter present at this time. 10:30 Safety Checks: Personal items have been removed. The door is open or patient has been sg placed in a hallway bed/chair. There are no family/friend visitors at this time Sitter present at this time. 10:45 Safety Checks: Personal items have been removed. The door is open or patient has been sg placed in a hallway bed/chair. There are no family/friend visitors at this time Sitter present at this time. 10:47 refaxed chart to [facility]. bd 10:47 Safety checks: Items removed: yes. Door open/sign placed on door: yes. Family/friend jb1 present: no. 11:00 Safety Checks: Personal items have been removed. The door is open or patient has been sg placed in a hallway bed/chair. There are no family/friend visitors at this time Sitter present at this time. 11:01 Safety checks: Items removed: yes. Door open/sign placed on door: yes. Family/friend jb1 present: no. 11:15 Safety Checks: Personal items have been removed. The door is open or patient has been sg placed in a hallway bed/chair. There are no family/friend visitors at this time Sitter present at this time. 11:23 Safety checks: Items removed: yes. Door open/sign placed on door: yes. Family/friend jb1 present: no. 11:30 Safety Checks: Personal items have been removed. The door is open or patient has been sg placed in a hallway bed/chair. There are no family/friend visitors at this time Sitter present at this time. 11:45 Safety Checks: Personal items have been removed. The door is open or patient has been sg placed in a hallway bed/chair. There are no family/friend visitors at this time Sitter present at this time. 11:51 Safety checks: Items removed: yes. Door open/sign placed on door: yes. Family/friend jb1 present: no. 12:00 Safety Checks: Personal items have been removed. The door is open or patient has been sg placed in a hallway bed/chair. There are no family/friend visitors at this time Sitter present at this time. 12:15 Safety Checks: Personal items have been removed. The door is open or patient has been sg placed in a hallway bed/chair. There are no family/friend visitors at this time Sitter present at this time. 12:15 Safety checks: Items removed: yes. Door open/sign placed on door: yes. Family/friend jb1 present: no. 12:30 Safety Checks: Personal items have been removed. The door is open or patient has been sg placed in a hallway bed/chair. There are no family/friend visitors at this time Sitter present at this time. 12:45 Safety Checks: Personal items have been removed. The door is open or patient has been sg placed in a hallway bed/chair. There are no family/friend visitors at this time Sitter present at this time. 13:00 Safety Checks: Personal items have been removed. The door is open or patient has been sg placed in a hallway bed/chair. There are no family/friend visitors at this time Sitter present at this time. 13:15 Safety Checks: Personal items have been removed. The door is open or patient has been sg placed in a hallway bed/chair. There are no family/friend visitors at this time Sitter present at this time. 13:30 Safety Checks: Personal items have been removed. The door is open or patient has been sg placed in a hallway bed/chair. There are no family/friend visitors at this time Sitter present at this time. 13:31 Safety checks: Items removed: yes. Door open/sign placed on door: yes. Family/friend jb1 present: no. 13:45 Safety Checks: Personal items have been removed. The door is open or patient has been tw2 placed in a hallway bed/chair. There are no family/friend visitors at this time Sitter present at this time. 13:50 Safety checks: Items removed: yes. Door open/sign placed on door: yes. Family/friend jb1 present: no. 14:00 Safety Checks: Personal items have been removed. The door is open or patient has been tw2 placed in a hallway bed/chair. There are no family/friend visitors at this time Sitter present at this time. 14:15 Safety Checks: Personal items have been removed. The door is open or patient has been tw2 placed in a hallway bed/chair. There are no family/friend visitors at this time Sitter present at this time. 14:15 Safety checks: Items removed: yes. Door open/sign placed on door: yes. Family/friend jb1 present: no. 14:30 No apparent distress. Resting quietly. Safety Checks: Personal items have been removed. tw2 The door is open or patient has been placed in a hallway bed/chair. There are no family/friend visitors at this time Sitter present at this time. 14:35 Safety checks: Items removed: yes. Door open/sign placed on door: yes. Family/friend jb1 present: no. 14:45 Safety Checks: Personal items have been removed. The door is open or patient has been tw2 placed in a hallway bed/chair. There are no family/friend visitors at this time Sitter present at this time. 15:00 Safety Checks: Personal items have been removed. The door is open or patient has been tw2 placed in a hallway bed/chair. There are no family/friend visitors at this time Sitter present at this time. 15:00 Safety checks: Items removed: yes. Door open/sign placed on door: yes. Family/friend jb1 present: no. 15:15 No apparent distress. Resting quietly. Safety Checks: Personal items have been removed. tw2 The door is open or patient has been placed in a hallway bed/chair. There are no family/friend visitors at this time Sitter present at this time. 15:26 Safety checks: Items removed: yes. Door open/sign placed on door: yes. Family/friend jb1 present: no. 15:30 Safety Checks: Personal items have been removed. The door is open or patient has been tw2 placed in a hallway bed/chair. There are no family/friend visitors at this time Sitter present at this time. 15:45 Safety Checks: Personal items have been removed. The door is open or patient has been tw2 placed in a hallway bed/chair. There are no family/friend visitors at this time Sitter present at this time. 16:00 Safety Checks: Personal items have been removed. The door is open or patient has been tw2 placed in a hallway bed/chair. There are no family/friend visitors at this time Sitter present at this time. 16:00 Safety checks: Items removed: yes. Door open/sign placed on door: yes. Family/friend jb1 present: no. 16:15 No apparent distress. Resting quietly. Safety Checks: Personal items have been removed. tw2 The door is open or patient has been placed in a hallway bed/chair. There are no family/friend visitors at this time Sitter present at this time. 16:20 Safety checks: Items removed: yes. Door open/sign placed on door: yes. Family/friend jb1 present: no. 16:30 Safety Checks: Personal items have been removed. The door is open or patient has been tw2 placed in a hallway bed/chair. There are no family/friend visitors at this time Sitter present at this time. 16:45 Safety Checks: Personal items have been removed. The door is open or patient has been tw2 placed in a hallway bed/chair. There are no family/friend visitors at this time Sitter present at this time. 16:45 Safety checks: Items removed: yes. Door open/sign placed on door: yes. Family/friend jb1 present: no. 17:00 Safety Checks: Personal items have been removed. The door is open or patient has been tw2 placed in a hallway bed/chair. There are no family/friend visitors at this time Sitter present at this time. 17:00 Safety checks: Items removed: yes. Door open/sign placed on door: yes. Family/friend jb1 present: no. 17:13 Safety checks: Items removed: yes. Door open/sign placed on door: yes. Family/friend jb1 present: no. 17:15 Safety Checks: Personal items have been removed. The door is open or patient has been tw2 placed in a hallway bed/chair. There are no family/friend visitors at this time Sitter present at this time. 17:30 Safety Checks: Personal items have been removed. The door is open or patient has been tw2 placed in a hallway bed/chair. There are no family/friend visitors at this time. 17:30 Safety checks: Items removed: yes. Door open/sign placed on door: yes. Family/friend jb1 present: no. 17:43 Safety checks: Items removed: yes. Door open/sign placed on door: yes. Family/friend jb1 present: no. 17:45 Safety Checks: Personal items have been removed. The door is open or patient has been tw2 placed in a hallway bed/chair. There are no family/friend visitors at this time Sitter present at this time. 18:00 Safety Checks: Personal items have been removed. The door is open or patient has been tw2 placed in a hallway bed/chair. There are no family/friend visitors at this time Sitter present at this time. 18:00 Safety checks: Items removed: yes. Door open/sign placed on door: yes. Family/friend jb1 present: no. 18:11 Safety checks: Items removed: yes. Door open/sign placed on door: yes. Family/friend jb1 present: no. 18:15 Safety Checks: Personal items have been removed. The door is open or patient has been tw2 placed in a hallway bed/chair. There are no family/friend visitors at this time Sitter present at this time. 18:26 Safety checks: Items removed: yes. Door open/sign placed on door: yes. Family/friend jb1 present: no. 18:30 Safety Checks: Personal items have been removed. The door is open or patient has been tw2 placed in a hallway bed/chair. There are no family/friend visitors at this time Sitter present at this time. 18:45 No apparent distress. Resting quietly. Safety Checks: Personal items have been removed. tw2 The door is open or patient has been placed in a hallway bed/chair. There are no family/friend visitors at this time Sitter present at this time. 19:00 Safety Checks: Personal items have been removed. The door is open or patient has been tw2 placed in a hallway bed/chair. There are no family/friend visitors at this time Sitter present at this time. 19:00 Safety checks: Items removed: yes. Door open/sign placed on door: yes. Family/friend cc present: no. 19:00 Report given to MASSIMO Shearer. tw2 19:15 Safety checks: Items removed: yes. Door open/sign placed on door: yes. Family/friend cc present: no. 19:30 Safety checks: Items removed: yes. Door open/sign placed on door: yes. Family/friend cc present: no. 19:35 Primary Nurse role handed off by Jesus Ferro RN rg2 19:45 Safety checks: Items removed: yes. Door open/sign placed on door: yes. Family/friend cc present: no. 20:00 Safety checks: Items removed: yes. Door open/sign placed on door: yes. Family/friend cc present: no. 20:15 Safety checks: Items removed: yes. Door open/sign placed on door: yes. Family/friend cc present: no. 20:28 Safety checks: Items removed: yes. Door open/sign placed on door: yes. Family/friend cc present: no. 20:45 Erasmo Oglesby RN is Primary Nurse. [facility] [place] 20:45 Safety checks: Items removed: yes. Door open/sign placed on door: yes. Family/friend cc present: no. 21:08 Safety checks: Items removed: yes. Door open/sign placed on door: yes. Family/friend cc present: no. 21:19 Safety checks: Items removed: yes. Door open/sign placed on door: yes. Family/friend cc present: no. 21:30 Safety checks: Items removed: yes. Door open/sign placed on door: yes. Family/friend cc present: no. 21:45 Safety checks: Items removed: yes. Door open/sign placed on door: yes. Family/friend cc present: no. 22:00 Safety checks: Items removed: yes. Door open/sign placed on door: yes. Family/friend cc present: no. 22:22 Safety checks: Items removed: yes. Door open/sign placed on door: yes. Family/friend cc present: no. 22:48 Safety checks: Items removed: yes. Door open/sign placed on door: yes. Family/friend cc present: no. 23:00 Safety checks: Items removed: yes. Door open/sign placed on door: yes. Family/friend cc present: no. 23:15 Safety checks: Items removed: yes. Door open/sign placed on door: yes. Family/friend cc present: no. 23:30 Safety checks: Items removed: yes. Door open/sign placed on door: yes. Family/friend cc present: no. 23:45 Safety checks: Items removed: yes. Door open/sign placed on door: yes. Family/friend cc present: no. 03/10 00:00 Safety checks: Items removed: yes. Door open/sign placed on door: yes. Family/friend cc present: no. 00:15 Safety checks: Items removed: yes. Door open/sign placed on door: yes. Family/friend cc present: no. 00:58 No provider procedures requiring assistance completed. IV discontinued, intact, mg2 bleeding controlled, No redness/swelling at site. Pressure dressing applied. Administered Medications: 03/08 22:00 Drug: Geodon 20 mg Route: IM; Site: left deltoid; lp1 03/09 01:05 Follow up: Response: No adverse reaction ak1 05:21 Drug: Motrin 800 mg Route: PO; ak1 05:41 Follow up: Response: No adverse reaction ak1 10:32 Drug: Ativan 2 mg Route: IVP; Site: right forearm; sg 13:19 Drug: Geodon 20 mg Route: IM; Site: left deltoid; iw 21:53 Drug: Ibuprofen 400 mg Route: PO; mg2 Outcome: 03/10 00:47 Discharge ordered by . ps1 01:03 Discharged to Law Enforcement aa1 01:03 Condition: stable 01:03 Discharge instructions given to police. 01:04 Patient left the ED. aa1 Signatures: Jimmy Campa Barbara bd Gayle, [place] rg2 Jesus Ferro RN RN sg Kern, Alissa, RN RN aa1 Dilcia Riojas RN RN fc Sanford, Demi ds1 Glenda Jalloh RN RN iw Connie Edmond Laura, RN RN lp1 Danna Mar RN RN ak1 Raul Morrison NP REGULATORY PRODUCT MANAGER pm1 Karissa Mcdonald RN RN tw2 Willi Hercules oe Bandar Hager MD MD ps1 Erasmo Oglesby RN RN mg2 Corrections: (The following items were deleted from the chart) 03/08 21:40 21:31 Presenting complaint: Patient states: that he is tired and dehydrated. Also is fc cutting himself on his arms. Pt states that he is suicidal at this time. fc 21:42 21:31 Presenting complaint: Patient states: that he is tired and dehydrated. Also is fc cutting himself on his arms. Pt states that he is suicidal at this time and if he does not hurt himself he will hurt others. fc 03/09 01:21 00:49 Safety checks: Items removed: yes. Door open/sign placed on door: no. oe Family/friend present: no. oe 01:21 00:49 Safety checks: Items removed: no. Reason for not removing items: Door open/sign oe placed on door: no. Family/friend present: no. oe 03:11 03:10 Safety checks: Items removed: yes. Door open/sign placed on door: yes. oe Family/friend present: no. oe 03:43 03:15 Safety Checks: Personal items have been removed. The door is open or patient has ak1 been placed in a hallway bed/chair. There are no family/friend visitors at this time Sitter present at this time. ak1 04:19 03:46 Safety checks: Items removed: yes. Door open/sign placed on door: yes. oe Family/friend present: no. oe 04:19 04:18 Safety checks: Items removed: yes. Door open/sign placed on door: yes. oe Family/friend present: no. oe 06:57 06:57 Safety checks: Items removed: yes. Door open/sign placed on door: yes. oe Family/friend present: no. oe 07:45 07:41 BP 110 / 62 Supine Auto Regular; Pulse 69bpm; MonitorResp 14bpm; Spontaneous; sg Pulse Ox 97% RA; sg 20:28 20:27 Safety checks: Items removed: yes. Door open/sign placed on door: no. cc Family/friend present: no. cc 20:29 20:15 Safety checks: Items removed: yes. Door open/sign placed on door: no. cc Family/friend present: no. cc
[2018-03-10 01:14] VITALS: TEMP 98
[2018-03-10 01:19] VITALS: BP 127/69; O2SAT 98
== END 2018-03-10 01:04 ==
LOC: ER 21:25
DX: R45.851 Suicidal ideations (principal); F31.9 Bipolar disorder, unspecified; F20.9 Schizophrenia, unspecified
CPT/HCPCS: 36415; 80048; 80076; 80307; 80320; 80329; 81003; 85025; 85610; 85730; 93005; 96372; 96374; 99285; J3486

== ENCOUNTER 2018-11-05 18:39 | Emergency (ER) | payer SELFPAY ==
[2018-11-05 20:09] LABS: Absolute Lymphocytes (CBC) 1.6 K/uL (0.7-4.9); Absolute Monocytes 0.8 K/uL (0.1-1.3); Absolute Neutrophil 6.5 K/uL (1.8-8.0); Basophils % 0.1 % (0-1.3); Eosinophils % 0.8 % (0-4.4); Hematocrit 41.9 % (39.6-49.0); Lymphocytes % 17.6 % (15.3-44.8); MPV 7.4 fL (7.6-11.3); Monocytes % 8.4 % (3.3-12.3); RBC Red Blood Cell Count 4.53 M/uL (4.33-5.43)
[2018-11-05 20:14] LABS: Protime INR 1.03
[2018-11-05 20:30] LABS: ALT/SGPT 38 U/L (12-78); AST/SGOT 52 U/L (15-37); Alkaline Phosphatase 72 U/L (45-117); BUN Blood Urea Nitrogen 7 mg/dL (7-18); Bicarbonate 30 mmol/L (21-32); Bilirubin Direct 0.3 mg/dL (0-0.2); Bilirubin Total 1.1 mg/dL (0.2-1.0); Glucose Level 114 mg/dL (74-106); Protein, Total 7.3 g/dL (6.4-8.2); Sodium Level 142 mmol/L (136-145)
[2018-11-05 20:34] LABS: Potassium 2.8 mmol/L (3.5-5.1)
[2018-11-05] MEDS ORDERED: POTASSIUM 25 MEQ EFFERV TAB ONE (20:48)
[2018-11-05 21:24] LABS: Urine Blood NEGATIVE (NEG); Urine Glucose NEGATIVE (NEG); Urine Protein 2+ (NEG); Urine Specific Gravity 1.025 (1.005-1.030); Urine pH 6.5 (5.0-7.0)
[2018-11-06 00:01] LABS: Barbiturates NEGATIVE (NEGATIVE); Benzodiazepines NEGATIVE (NEGATIVE); Cocaine POSITIVE (NEGATIVE); METHAMPHETAM POSITIVE (NEGATIVE); Methadone NEGATIVE (NEGATIVE); Opiates NEGATIVE (NEGATIVE); Phencyclidine NEGATIVE (NEGATIVE); THC Cannibis POSITIVE (NEGATIVE)
[2018-11-06 02:41] VITALS: TEMP 97.5; O2SAT 99
[2018-11-06 02:42] VITALS: BP 121/70
--- NOTE | 2018-11-06 07:45 | EKG ---
Test Date: 2018-11-05 Test Time: 19:51:30 Wharf Tender Helper: RR MEASUREMENT RESULTS: Intervals: Rate: 72 TX: 160 QRSD: 98 QT: 402 QTc: 440 [place]: P: 61 TX: 160 QRS: 48 T: 19 INTERPRETIVE STATEMENTS: Normal sinus rhythm Possible Lateral infarct, age undetermined Abnormal ECG Compared to ECG 03/08/2018 22:06:13 Questionable myocardial infarct finding now present Electronically Signed On 11-06-18 07:45:01 MANDARIN CHINESE TEACHER by Carl Barnes
== END 2018-11-06 02:33 | disposition home or self-care (01) ==
LOC: ER 18:39
DX: R45.4 Irritability and anger (principal); F32.9 Major depressive disorder, single episode, unspecified
CPT/HCPCS: 36415; 80048; 80076; 80307; 80320; 80329; 81003; 85025; 85610; 85730; 93005; 99284

== ENCOUNTER 2018-11-07 15:46 | Emergency (ER) | payer SELFPAY ==
[2018-11-07 17:59] LABS: Absolute Lymphocytes (CBC) 1.2 K/uL (0.7-4.9); Absolute Monocytes 0.5 K/uL (0.1-1.3); Absolute Neutrophil 7.6 K/uL (1.8-8.0); Basophils % 0.1 % (0-1.3); Eosinophils % 0.4 % (0-4.4); Hematocrit 40.9 % (39.6-49.0); MPV 7.1 fL (7.6-11.3); Monocytes % 5.1 % (3.3-12.3); RBC Red Blood Cell Count 4.43 M/uL (4.33-5.43)
[2018-11-07 18:02] LABS: Protime INR 0.99
[2018-11-07 18:15] LABS: Barbiturates NEGATIVE (NEGATIVE); Benzodiazepines NEGATIVE (NEGATIVE); Cocaine POSITIVE (NEGATIVE); METHAMPHETAM POSITIVE (NEGATIVE); Methadone NEGATIVE (NEGATIVE); Opiates NEGATIVE (NEGATIVE); Phencyclidine NEGATIVE (NEGATIVE); THC Cannibis POSITIVE (NEGATIVE)
[2018-11-07 18:43] LABS: ALT/SGPT 38 U/L (12-78); AST/SGOT 30 U/L (15-37); Alkaline Phosphatase 70 U/L (45-117); BUN Blood Urea Nitrogen 5 mg/dL (7-18); Bicarbonate 27 mmol/L (21-32); Bilirubin Direct 0.3 mg/dL (0-0.2); Glucose Level 105 mg/dL (74-106); Potassium 3.1 mmol/L (3.5-5.1); Protein, Total 7.5 g/dL (6.4-8.2); Sodium Level 141 mmol/L (136-145)
[2018-11-07 20:35] LABS: Urine Blood NEGATIVE (NEG); Urine Glucose NEGATIVE (NEG); Urine Protein 1+ (NEG)
[2018-11-07] MEDS ORDERED: LORAZEPAM 0.5 MG TABLET ONE (22:34)
[2018-11-07] MEDS ORDERED: ZIPRASIDONE MESYLA 20 MG/VIAL IM ONE (22:34)
[2018-11-07] MEDS ORDERED: WATER FOR INJ,STERILE 10 ML ONE (22:35)
[2018-11-08] MEDS ORDERED: POTASSIUM CL SA 10 MEQ TAB PO ONE (02:38)
--- NOTE | 2018-11-08 07:23 | EKG ---
Test Date: 2018-11-07 Test Time: 19:42:14 Machine Staker: JOANNA MEASUREMENT RESULTS: Intervals: Rate: 66 NC: 160 QRSD: 94 QT: 372 QTc: 389 [place]: P: 73 NC: 160 QRS: 78 T: 54 INTERPRETIVE STATEMENTS: Normal sinus rhythm Possible Lateral infarct, age undetermined Abnormal ECG Compared to ECG 11/05/2018 19:51:30 No significant changes Electronically Signed On 11-08-18 07:15:32 CAN REFORMING MACHINE OPERATOR by Carl Barnes
[2018-11-08] MEDS ORDERED: ZIPRASIDONE MESYLA 20 MG/VIAL IM ONE (11:45)
[2018-11-08] MEDS ORDERED: LORazepam 2 MG/ML VIAL ONE (11:45)
[2018-11-08] MEDS ORDERED: WATER FOR INJ,STERILE 10 ML ONE (11:46)
--- NOTE | 2018-11-08 12:37 | ER ---
Nurse's Notes [facility] Name: Tanner Lopes Age: 38 yrs Sex: Male : 1980 Arrival Date: 11/07/2018 Time: 15:47 Bed 16 Private MD: Diagnosis: Suicidal ideations Presentation: 11/07 15:50 Presenting complaint: Patient states: "I am having a panic attack and I am going to aa5 hurt myself". Pt reports plan is to "slid my throat or cut my vein". 15:50 Method Of Arrival: Ambulatory aa5 15:50 Transition of care: patient was not received from another setting of care. Onset of aa5 symptoms was November 07, 2018. Risk Assessment: Do you want to hurt yourself or someone else? Patient reports desire/thoughts of hurting themselves or someone else. Provider notified. Initial Sepsis Screen: Does the patient meet any 2 criteria? No. Patient's initial sepsis screen is negative. Does the patient have a suspected source of infection? No. Patient's initial sepsis screen is negative. Care prior to arrival: None. 15:50 Acuity: RADHA 2 aa5 Triage Assessment: 15:47 General: Appears in no apparent distress. Behavior is anxious, fussy. Pain: Denies ls4 pain. Neuro: No deficits noted. Historical: - Allergies: 15:50 No Known Allergies; aa5 - Home Meds: 11/08 00:49 gabapentin Oral [Active]; Hydroxyzine Oral [Active]; trazadone [Active]; Vistaril Oral ak1 [Active]; - PMHx: 11/07 15:50 Anxiety; Bipolar disorder; Depression; Schizophrenia; aa5 - Immunization history:: Adult Immunizations unknown. - Social history:: Smoking status: Patient uses tobacco products, smokes two packs cigarettes per day. Patient uses street drugs, cocaine, marijuana. - Ebola Screening: : No symptoms or risks identified at this time. Screenin:49 Abuse screen: Denies threats or abuse. Denies injuries from another. Nutritional ls4 screening: No deficits noted. Tuberculosis screening: No symptoms or risk factors identified. Fall Risk None identified. Assessment: 18:50 General: SEE TRIAGE ASSESSMENT .. RAFI RN SITTING ONE TO ONE WITH PATIENT. PT SLEEPING ls4 AT THIS TIME . Pain: Denies pain. Neuro: No deficits noted. Respiratory: No deficits noted. GI: No deficits noted. : No deficits noted. Derm: No deficits noted. Musculoskeletal: No deficits noted. 20:18 Reassessment: Patient appears in no apparent distress at this time. Patient is alert, ls4 oriented x 3, equal unlabored respirations, skin warm/dry/pink. PT SLEEPING. NAD. SITTER AT BEDSIDE. 21:00 Reassessment: Patient appears in no apparent distress at this time. Patient is alert, ca1 oriented x 3, equal unlabored respirations, skin warm/dry/pink. Sitter at bedside. 21:55 Reassessment: Patient appears in no apparent distress at this time. Patient is alert, ca1 oriented x 3, equal unlabored respirations, skin warm/dry/pink. Sitter at bedside. 22:02 Reassessment: KYLE Petit at bedside. ca1 23:29 Reassessment: Patient appears in no apparent distress at this time. Pt sleeping, easily ca1 awaken by verbal stimuli. Sitter at bedside. 11/08 00:24 Reassessment: Patient appears in no apparent distress at this time. Pt sleeping ca1 comfortably. 01:28 Reassessment: Patient appears in no apparent distress at this time. Pt asleep on bed ca1 comfortably. Occasional movements noted. 02:31 Reassessment: Patient appears in no apparent distress at this time. Patient is alert, ca1 oriented x 3, equal unlabored respirations, skin warm/dry/pink. Awaken for PO medication ordered. 03:08 Reassessment: Patient appears in no apparent distress at this time. pt appears to be ak1 sleeping, resp even and unlabored. sitter at bedside, will continue to monitor. 04:08 Reassessment: Patient appears in no apparent distress at this time. No changes from ak1 previously documented assessment. Patient and/or family updated on plan of care and expected duration. Pain level reassessed. Patient is alert, oriented x 3, equal unlabored respirations, skin warm/dry/pink. 05:40 Reassessment: Patient appears in no apparent distress at this time. No changes from ak1 previously documented assessment. 06:17 Reassessment: Patient appears in no apparent distress at this time. No changes from ak1 previously documented assessment. pt remains asleep with a sitter at bedside. 07:20 Reassessment: Patient appears in no apparent distress at this time. Pt appears to be ph sleeping, even and unlabored respirations, awaiting transfer to psychiatric facility. 08:15 Reassessment: Pt awake and pacing in room, noted to be agitated, franchesca wolfe called, ph security at bedside. 08:45 Reassessment: Patient appears in no apparent distress at this time. Patient and/or ph family updated on plan of care and expected duration. Pain level reassessed. Pt noted to have calmed down, eatinmg breakfast and tolerating well, sitter at bedside. 10:48 Reassessment: [employer] [facility] employee here for mental health evaluation. ss 11:33 Reassessment: Pt noted to be agitated, yelling and pounding on bed rail, states , " I ph need help!! And all anyone wants to do is put me in a psych rodriguez and not actually help me." Attempted to calm pt but pt continues to yell and hit bed, franchesca wolfe called an security at bedside, ERP notified and at bedside, verbal order for medication received, see MAR. 12:02 Reassessment: Patient appears in no apparent distress at this time. Pt appears to be ph asleep w/ equal, unlabored respirations, sitter at bedside. 13:00 Reassessment: Patient appears in no apparent distress at this time. No changes from ph previously documented assessment. 14:00 Reassessment: Patient appears in no apparent distress at this time. No changes from ph previously documented assessment. 15:00 Reassessment: Patient appears in no apparent distress at this time. Pt remains asleep ph w/ equal unlabored respirations. 16:30 Reassessment: Patient appears in no apparent distress at this time. Patient and/or ph family updated on plan of care and expected duration. Pain level reassessed. Patient is alert, oriented x 3, equal unlabored respirations, skin warm/dry/pink. Pt awake and eating lunch, tolerating well, states, " Do you think it would be okay if I listened to my music? It keeps me relaxed.". 17:30 Reassessment: Patient appears in no apparent distress at this time. Patient and/or ph family updated on plan of care and expected duration. Pain level reassessed. Patient is alert, oriented x 3, equal unlabored respirations, skin warm/dry/pink. Pt resting quietly, sitter at bedside, awaiting transfer to psychiatric facility. 18:53 Reassessment: Patient appears in no apparent distress at this time. Patient and/or ph family updated on plan of care and expected duration. Pain level reassessed. Patient is alert, oriented x 3, equal unlabored respirations, skin warm/dry/pink. Pt sitting quietly in bed, listening to music, no distress or aggression noted at this time. 19:09 Reassessment: Patient appears in no apparent distress at this time. Patient and/or aa1 family updated on plan of care and expected duration. Pain level reassessed. Patient is alert, oriented x 3, equal unlabored respirations, skin warm/dry/pink. Pt still pending transfer to psych facility. 20:00 Reassessment: Patient appears in no apparent distress at this time. Patient and/or aa1 family updated on plan of care and expected duration. Pain level reassessed. Patient is alert, oriented x 3, equal unlabored respirations, skin warm/dry/pink. Pt still pending psych transfer Patient denies pain at this time. 21:00 Reassessment: Patient appears in no apparent distress at this time. Patient and/or aa1 family updated on plan of care and expected duration. Pain level reassessed. Patient is alert, oriented x 3, equal unlabored respirations, skin warm/dry/pink. Pt still pending psych transfer. 22:00 Reassessment: Patient appears in no apparent distress at this time. Patient and/or aa1 family updated on plan of care and expected duration. Pain level reassessed. Patient is alert, oriented x 3, equal unlabored respirations, skin warm/dry/pink. Pt still pending psych transfer. 23:00 Reassessment: Patient appears in no apparent distress at this time. Patient and/or aa1 family updated on plan of care and expected duration. Pain level reassessed. Patient is alert, oriented x 3, equal unlabored respirations, skin warm/dry/pink. Pt still pending psych transfer. 11/09 00:00 Reassessment: Patient appears in no apparent distress at this time. Patient and/or aa1 family updated on plan of care and expected duration. Pain level reassessed. Patient is alert, oriented x 3, equal unlabored respirations, skin warm/dry/pink. Pt still pending psych transfer. 01:00 Reassessment: Patient appears in no apparent distress at this time. Patient and/or aa1 family updated on plan of care and expected duration. Pain level reassessed. Patient is alert, oriented x 3, equal unlabored respirations, skin warm/dry/pink. 02:00 Reassessment: Patient appears in no apparent distress at this time. Patient and/or aa1 family updated on plan of care and expected duration. Pain level reassessed. Patient is alert, oriented x 3, equal unlabored respirations, skin warm/dry/pink. Pt still pending psych transfer. 02:40 Reassessment: Patient appears in no apparent distress at this time. Patient and/or aa1 family updated on plan of care and expected duration. Pain level reassessed. Pt resting quietly, eyes closed with even respirations. Awaiting psych transfer. 03:47 Reassessment: Patient appears in no apparent distress at this time. Patient is alert, aa1 oriented x 3, equal unlabored respirations, skin warm/dry/pink. Mental health deputy present to take pt to psychiatric facility. Psych: 11/07 17:20 Safety Checks: Personal items have been removed. Door is open. No visitors are present lk2 at this time. 1:1 sitter present. Pt states he feels anxious. stats had a premination of something "bad" is going to happen. intermittantly pacing. support and reassurance given. 17:30 Safety Checks: Personal items have been removed. Door is open. No visitors are present lk2 at this time. feet cleaned per pt request. pt anxious. awaiting lab draw. reassurance of safety given. 17:41 Safety Checks: Personal items have been removed. Door is open. lab drawn by nurse. pt lk2 now in bed . feet were cleaned by nurse . pts conversation is disjoined concerning his mental healt history and current concern that he is being followed. 17:41 Subjective: Patient's mood is hopeless, Delusions are denied, Hallucinations are denied ls4 Having thoughts of suicide. Denies suicidal plan. VAGUE PLAN TO SLIT "VIENS". Objective: Patient is irritable, using poor eye contact, Speech is rapid, Affect is flat, Patient has mutilated themselves by NONE. Interventions: Removed personal items and placed in bag. Patient placed in hospital gown. Searched person for dangerous items. Urine collected and sent for urine drug test. Belonging list filled out. Commitment: UNKNOWN. 17:41 Suicide Risk Assessment: Sad Person Scale: Sex of patient: Male: Score 1 point. Age of ls4 patient: Score 0 point if patient falls outside of specified age parameters. Depression: Score 1 point if signs of depression are present. Previous Attempt: Score 1 point if patient has previously attempted suicide. Substance Abuse: Score 1 point if patient abuses alcohol or drugs. Rational Thinking: Score 1 point if patient is lacking rational thinking. Social Support: Score 1 point if social support is lacking and/or unavailable. Organized Plan: Score 0 if patient did not have an organized plan in place. Relationship: Score 1 point if patient is , , , or for a single male Chronic Sickness: Score 0 point if patient does not have a chronic illness, debilitating, or severe disorder. TOTAL POINTS: If total points are 7-10, the proposed clinical action is to hospitalize or commit. Implement suicide precautions. Patient uses cocaine, METHAMPHETAMINE, COCAINE MARIJUANA. 17:58 Safety Checks: Personal items have been removed. Door is open. No visitors are present lk2 at this time. 1:1 sitter. tolerated reg diet. "I wish I could just disappear". 97.8 141/91 18 96% on RA. 18:15 Safety Checks: Personal items have been removed. Door is open. No visitors are present lk2 at this time. !:1 sitter. resting quietly. 18:30 Safety Checks: Personal items have been removed. Door is open. No visitors are present lk2 at this time. 1:1 sitter. blanket over head. resp deep \\T\\ even. pt wakes when blanket removed. no c/o offered. 18:41 Safety Checks: Personal items have been removed. Door is open. No visitors are present lk2 at this time. 1:1 sitter. pt resting quietly . 19:00 Safety Checks: Personal items have been removed. Door is open. No visitors are present lk2 at this time. 1:1 sitter. pt resting quietly. wakes when blankets moved. personal items reviewed with security and they took 1 white personal bag and one black bag with them. 11/08 01:19 Subjective: Patient's mood is Delusions are Hallucinations are Having thoughts of. ca1 Objective: Patient is Speech is Affect is. Vital Signs: 11/07 15:55 BP 144 / 93; Pulse 68; Resp 16 S; Temp 98.0(TE); Pulse Ox 98% on R/A; Weight 90.72 kg aa5 (R); Height 6 ft. 1 in. (185.42 cm) (R); Pain 0/10; 19:55 BP 121 / 65; Pulse 72; Resp 18; Temp 98.2; Pulse Ox 98% on R/A; ca1 23:50 BP 117 / 71; Pulse 75; Resp 18; Temp 97.9; Pulse Ox 98% on R/A; ca1 02 04:07 BP 123 / 70; Pulse 58; Resp 16; Temp 98.2(TE); Pulse Ox 100% on R/A; Pain 0/10; ak1 08:00 BP 138 / 80; Pulse 75; Resp 18; Temp 97.8(O); Pulse Ox 100% on R/A; dh3 12:03 BP 129 / 69; Pulse 83; Resp 20; Temp 98.3; Pulse Ox 98% on R/A; ph 16:00 BP 128 / 78; Pulse 82; Resp 18; Temp 97.8(O); Pulse Ox 99% on R/A; dh3 19:11 BP 128 / 69; Pulse 64; Resp 16; Temp 98.2; Pulse Ox 100% on R/A; Pain 0/10; aa1 02/05 03:07 BP 132 / 78; Pulse 85; Resp 16; Temp 98(TE); Pulse Ox 99% on R/A; ag4 11/07 15:55 Body Mass Index 26.39 (90.72 kg, 185.42 cm) aa5 ED Course: 11/07 15:47 Patient arrived in ED. mr 15:50 Arm band placed on. aa5 16:23 Triage completed. aa5 16:50 Liu Petit PA is PHCP. jr8 16:50 Davonte Hernandez MD is Attending Physician. jr8 17:01 Teagan Reed, RN is Primary Nurse. ls4 18:25 Acetaminophen Sent. ls4 18:25 No provider procedures requiring assistance completed. Initial lab(s) drawn, by ia, ls4 sent to lab. 18:49 Patient has correct armband on for positive identification. Side rails up X 1. Cardiac ls4 monitor on. Pulse ox on. NIBP on. Warm blanket given. 19:40 Safety Checks: Personal items have been removed. The door is open or patient has been iw placed in a hallway bed/chair. There are no family/friend visitors at this time Sitter present at this time. 19:55 Safety Checks: Personal items have been removed. The door is open or patient has been ca1 placed in a hallway bed/chair. There are no family/friend visitors at this time Sitter present at this time. 20:10 Safety Checks: Personal items have been removed. The door is open or patient has been ca1 placed in a hallway bed/chair. There are no family/friend visitors at this time Sitter present at this time. 20:25 Safety Checks: Personal items have been removed. The door is open or patient has been ca1 placed in a hallway bed/chair. There are no family/friend visitors at this time Sitter present at this time. 20:40 Safety Checks: Personal items have been removed. The door is open or patient has been ca1 placed in a hallway bed/chair. There are no family/friend visitors at this time Sitter present at this time. 20:55 Safety Checks: Personal items have been removed. The door is open or patient has been ca1 placed in a hallway bed/chair. There are no family/friend visitors at this time Sitter present at this time. 21:10 Safety Checks: Personal items have been removed. The door is open or patient has been ca1 placed in a hallway bed/chair. There are no family/friend visitors at this time Sitter present at this time. 21:25 Safety Checks: Personal items have been removed. The door is open or patient has been ca1 placed in a hallway bed/chair. There are no family/friend visitors at this time Sitter present at this time. 21:40 Safety Checks: Personal items have been removed. The door is open or patient has been ca1 placed in a hallway bed/chair. There are no family/friend visitors at this time Sitter present at this time. 21:55 Safety Checks: Personal items have been removed. The door is open or patient has been ca1 placed in a hallway bed/chair. There are no family/friend visitors at this time Sitter present at this time. 21:55 faxed all of patient's information to all psychiatric facilities. mw2 22:10 Safety Checks: Personal items have been removed. The door is open or patient has been ca1 placed in a hallway bed/chair. There are no family/friend visitors at this time Sitter present at this time. 22:25 Safety Checks: Personal items have been removed. The door is open or patient has been ca1 placed in a hallway bed/chair. There are no family/friend visitors at this time Sitter present at this time. 22:40 Safety Checks: Personal items have been removed. The door is open or patient has been ca1 placed in a hallway bed/chair. There are no family/friend visitors at this time Sitter present at this time. 22:55 Safety Checks: Personal items have been removed. The door is open or patient has been ca1 placed in a hallway bed/chair. There are no family/friend visitors at this time Sitter present at this time. 23:10 Safety Checks: Personal items have been removed. The door is open or patient has been ca1 placed in a hallway bed/chair. There are no family/friend visitors at this time Sitter present at this time. 23:25 Safety Checks: Personal items have been removed. The door is open or patient has been ca1 placed in a hallway bed/chair. There are no family/friend visitors at this time Sitter present at this time. 23:40 Safety Checks: Personal items have been removed. The door is open or patient has been ca1 placed in a hallway bed/chair. There are no family/friend visitors at this time Sitter present at this time. 23:55 Safety Checks: Personal items have been removed. The door is open or patient has been ca1 placed in a hallway bed/chair. There are no family/friend visitors at this time Sitter present at this time. 11/08 00:10 Safety Checks: Personal items have been removed. The door is open or patient has been ca1 placed in a hallway bed/chair. There are no family/friend visitors at this time Sitter present at this time. 00:25 Safety Checks: Personal items have been removed. The door is open or patient has been ca1 placed in a hallway bed/chair. There are no family/friend visitors at this time Sitter present at this time. 00:40 Safety Checks: Personal items have been removed. The door is open or patient has been ca1 placed in a hallway bed/chair. There are no family/friend visitors at this time Sitter present at this time. 00:55 Safety Checks: Personal items have been removed. The door is open or patient has been ca1 placed in a hallway bed/chair. There are no family/friend visitors at this time Sitter present at this time. 01:10 Safety Checks: Personal items have been removed. The door is open or patient has been ca1 placed in a hallway bed/chair. There are no family/friend visitors at this time Sitter present at this time. 01:25 Safety Checks: Personal items have been removed. The door is open or patient has been ca1 placed in a hallway bed/chair. There are no family/friend visitors at this time Sitter present at this time. 01:40 Safety Checks: Personal items have been removed. The door is open or patient has been ca1 placed in a hallway bed/chair. There are no family/friend visitors at this time Sitter present at this time. 01:55 Safety Checks: Personal items have been removed. The door is open or patient has been ca1 placed in a hallway bed/chair. There are no family/friend visitors at this time Sitter present at this time. 02:10 Safety Checks: Personal items have been removed. The door is open or patient has been ca1 placed in a hallway bed/chair. There are no family/friend visitors at this time Sitter present at this time. 02:25 Safety Checks: Personal items have been removed. The door is open or patient has been ca1 placed in a hallway bed/chair. There are no family/friend visitors at this time Sitter present at this time. 02:40 Safety Checks: Personal items have been removed. The door is open or patient has been ca1 placed in a hallway bed/chair. There are no family/friend visitors at this time Sitter present at this time. 02:55 Safety Checks: Personal items have been removed. The door is open or patient has been ca1 placed in a hallway bed/chair. There are no family/friend visitors at this time Sitter present at this time. 03:00 Safety Checks: Personal items have been removed. The door is open or patient has been ak1 placed in a hallway bed/chair. There are no family/friend visitors at this time Sitter present at this time. 03:15 Safety checks: Items removed: yes. Door open/sign placed on door: yes. Family/friend ar5 present: no. Sitter present: Yes. 03:30 Safety checks: Items removed: yes. Door open/sign placed on door: yes. Family/friend ar5 present: no. Sitter present: Yes. 03:45 Safety checks: Items removed: yes. Door open/sign placed on door: yes. Family/friend ar5 present: no. Sitter present: Yes. 04:00 Safety checks: Items removed: yes. Door open/sign placed on door: yes. Family/friend ar5 present: no. Sitter present: Yes. 04:15 Safety checks: Items removed: yes. Door open/sign placed on door: yes. Family/friend ar5 present: no. Sitter present: Yes. 04:30 Safety checks: Items removed: yes. Door open/sign placed on door: yes. Family/friend ar5 present: no. Sitter present: Yes. 04:45 Safety checks: Items removed: yes. Door open/sign placed on door: yes. Family/friend ar5 present: no. Sitter present: Yes. 05:00 Safety checks: Items removed: yes. Door open/sign placed on door: yes. Family/friend ar5 present: no. Sitter present: Yes. 05:15 Safety checks: Items removed: yes. Door open/sign placed on door: yes. Family/friend ar5 present: no. Sitter present: Yes. 05:30 Safety checks: Items removed: yes. Door open/sign placed on door: yes. Family/friend ar5 present: no. Sitter present: Yes. 05:45 Safety checks: Items removed: yes. Door open/sign placed on door: yes. Family/friend ar5 present: no. Sitter present: Yes. 06:00 Safety checks: Items removed: yes. Door open/sign placed on door: yes. Family/friend ar5 present: no. Sitter present: Yes. 06:15 Safety checks: Items removed: yes. Door open/sign placed on door: yes. Family/friend ar5 present: no. Sitter present: Yes. 06:30 Safety checks: Items removed: yes. Door open/sign placed on door: yes. Family/friend ar5 present: no. Sitter present: Yes. 06:45 Safety checks: Items removed: yes. Door open/sign placed on door: yes. Family/friend ar5 present: no. Sitter present: Yes. 07:00 Safety checks: Items removed: yes. Door open/sign placed on door: yes. Family/friend dh3 present: no. Sitter present: Yes. 07:15 Safety checks: Items removed: yes. Door open/sign placed on door: yes. Family/friend dh3 present: no. Sitter present: Yes. 07:30 Safety checks: Items removed: yes. Door open/sign placed on door: yes. Family/friend dh3 present: no. Sitter present: Yes. 07:45 Safety checks: Items removed: yes. Door open/sign placed on door: yes. Family/friend dh3 present: no. Sitter present: Yes. 08:00 Safety checks: Items removed: yes. Door open/sign placed on door: yes. Family/friend dh3 present: no. Sitter present: Yes. 08:15 Safety Checks: Personal items have been removed. The door is open or patient has been tw2 placed in a hallway bed/chair. There are no family/friend visitors at this time Sitter present at this time. 08:15 Safety checks: Items removed: yes. Door open/sign placed on door: yes. Family/friend dh3 present: no. Sitter present: Yes. 08:30 Safety Checks: Personal items have been removed. The door is open or patient has been tw2 placed in a hallway bed/chair. There are no family/friend visitors at this time Sitter present at this time. pt is eating breakfast at this time. 08:30 Safety checks: Items removed: yes. Door open/sign placed on door: yes. Family/friend dh3 present: no. Sitter present: Yes. 08:45 Safety checks: Items removed: yes. Door open/sign placed on door: yes. Family/friend dh3 present: no. Sitter present: Yes. 09:00 Safety checks: Items removed: yes. Door open/sign placed on door: yes. Family/friend dh3 present: no. Sitter present: Yes. 09:15 Safety checks: Items removed: yes. Door open/sign placed on door: yes. Family/friend dh3 present: no. Sitter present: Yes. 09:30 Safety checks: Items removed: yes. Door open/sign placed on door: yes. Family/friend dh3 present: no. Sitter present: Yes. 09:45 Safety checks: Items removed: yes. Door open/sign placed on door: yes. Family/friend dh3 present: no. Sitter present: Yes. 10:00 Safety checks: Items removed: yes. Door open/sign placed on door: yes. Family/friend dh3 present: no. Sitter present: Yes. 10:15 Safety checks: Items removed: yes. Door open/sign placed on door: yes. Family/friend dh3 present: no. Sitter present: Yes. 10:30 Safety checks: Items removed: yes. Door open/sign placed on door: yes. Family/friend dh3 present: no. Sitter present: Yes. 10:45 Safety checks: Items removed: yes. Door open/sign placed on door: yes. Family/friend dh3 present: no. Sitter present: Yes. 11:00 Safety checks: Items removed: yes. Door open/sign placed on door: yes. Family/friend dh3 present: no. Sitter present: Yes. 11:15 Safety checks: Items removed: yes. Door open/sign placed on door: yes. Family/friend dh3 present: no. Sitter present: Yes. 11:30 Safety checks: Items removed: yes. Door open/sign placed on door: yes. Family/friend dh3 present: no. Sitter present: Yes. 11:45 Safety checks: Items removed: yes. Door open/sign placed on door: yes. Family/friend dh3 present: no. Sitter present: Yes. 12:00 Safety checks: Items removed: yes. Door open/sign placed on door: yes. Family/friend dh3 present: no. Sitter present: Yes. 12:15 Safety checks: Items removed: yes. Door open/sign placed on door: yes. Family/friend dh3 present: no. Sitter present: Yes. 12:30 Safety checks: Items removed: yes. Door open/sign placed on door: yes. Family/friend dh3 present: no. Sitter present: Yes. 12:35 Attending Physician role handed off by Davonte Hernandez MD rn 12:35 Nick Ocampo MD is Attending Physician. rn 12:45 Safety checks: Items removed: yes. Door open/sign placed on door: yes. Family/friend dh3 present: no. Sitter present: Yes. 13:00 Safety checks: Items removed: yes. Door open/sign placed on door: yes. Family/friend dh3 present: no. Sitter present: Yes. 13:15 Safety checks: Items removed: yes. Door open/sign placed on door: yes. Family/friend dh3 present: no. Sitter present: Yes. 13:30 Safety checks: Items removed: yes. Door open/sign placed on door: yes. Family/friend dh3 present: no. Sitter present: Yes. 13:45 Safety checks: Items removed: yes. Door open/sign placed on door: yes. Family/friend dh3 present: no. Sitter present: Yes. 14:00 Safety checks: Items removed: yes. Door open/sign placed on door: yes. Family/friend dh3 present: no. Sitter present: Yes. 14:15 Safety checks: Items removed: yes. Door open/sign placed on door: yes. Family/friend dh3 present: no. Sitter present: Yes. 14:22 spoke with [facility], chart is still under review. 14:30 Safety checks: Items removed: yes. Door open/sign placed on door: yes. Family/friend dh3 present: no. Sitter present: Yes. 14:45 Safety checks: Items removed: yes. Door open/sign placed on door: yes. Family/friend dh3 present: no. Sitter present: Yes. 15:00 Safety checks: Items removed: yes. Door open/sign placed on door: yes. Family/friend dh3 present: no. Sitter present: Yes. 15:15 Safety checks: Items removed: yes. Door open/sign placed on door: yes. Family/friend dh3 present: no. Sitter present: Yes. 15:30 Safety checks: Items removed: yes. Door open/sign placed on door: yes. Family/friend dh3 present: no. Sitter present: Yes. 15:45 Safety checks: Items removed: yes. Door open/sign placed on door: yes. Family/friend dh3 present: no. Sitter present: Yes. 16:00 Safety checks: Items removed: yes. Door open/sign placed on door: yes. Family/friend dh3 present: no. Sitter present: Yes. 16:15 Safety checks: Items removed: yes. Door open/sign placed on door: yes. Family/friend dh3 present: no. Sitter present: Yes. 16:30 Safety checks: Items removed: yes. Door open/sign placed on door: yes. Family/friend dh3 present: no. Sitter present: Yes. 16:45 Safety checks: Items removed: yes. Door open/sign placed on door: yes. Family/friend dh3 present: no. Sitter present: Yes. 16:59 refaxed the chart to [facility], talked to bernard, pt is on waiting list. bd 17:00 Safety checks: Items removed: yes. Door open/sign placed on door: yes. Family/friend dh3 present: no. Sitter present: Yes. 17:15 Safety checks: Items removed: yes. Door open/sign placed on door: yes. Family/friend dh3 present: no. Sitter present: Yes. 17:30 Safety checks: Items removed: yes. Door open/sign placed on door: yes. Family/friend dh3 present: no. Sitter present: Yes. 17:45 Safety checks: Items removed: yes. Door open/sign placed on door: yes. Family/friend dh3 present: no. Sitter present: Yes. 18:00 Safety checks: Items removed: yes. Door open/sign placed on door: yes. Family/friend dh3 present: no. Sitter present: Yes. 18:15 Safety checks: Items removed: yes. Door open/sign placed on door: yes. Family/friend dh3 present: no. Sitter present: Yes. 18:28 talked to eBrnard at [facility], chart is still under review, will possibly be bd discharges in the morning. 18:30 Safety checks: Items removed: yes. Door open/sign placed on door: yes. Family/friend dh3 present: no. Sitter present: Yes. 18:41 Nick Ocampo MD is Attending Physician. rn 18:45 Safety checks: Items removed: yes. Door open/sign placed on door: yes. Family/friend dh3 present: no. Sitter present: Yes. 19:00 Safety Checks: Personal items have been removed. The door is open or patient has been aa1 placed in a hallway bed/chair. Sitter present at this time. 19:00 Safety checks: Items removed: yes. Door open/sign placed on door: yes. Family/friend dh3 present: no. Sitter present: Yes. 19:15 Safety Checks: Personal items have been removed. The door is open or patient has been aa1 placed in a hallway bed/chair. Sitter present at this time. 19:30 Safety Checks: Personal items have been removed. The door is open or patient has been aa1 placed in a hallway bed/chair. There are no family/friend visitors at this time Sitter present at this time. 19:45 Safety Checks: Personal items have been removed. The door is open or patient has been aa1 placed in a hallway bed/chair. There are no family/friend visitors at this time Sitter present at this time. 20:00 Safety Checks: Personal items have been removed. The door is open or patient has been aa1 placed in a hallway bed/chair. There are no family/friend visitors at this time Sitter present at this time. 20:15 Safety Checks: Personal items have been removed. The door is open or patient has been aa1 placed in a hallway bed/chair. There are no family/friend visitors at this time Sitter present at this time. 20:30 Safety Checks: Personal items have been removed. The door is open or patient has been aa1 placed in a hallway bed/chair. There are no family/friend visitors at this time Sitter present at this time. 20:45 Safety Checks: Personal items have been removed. The door is open or patient has been aa1 placed in a hallway bed/chair. There are no family/friend visitors at this time Sitter present at this time. 21:00 Safety Checks: Personal items have been removed. The door is open or patient has been aa1 placed in a hallway bed/chair. There are no family/friend visitors at this time Sitter present at this time. 21:15 Safety Checks: Personal items have been removed. The door is open or patient has been aa1 placed in a hallway bed/chair. There are no family/friend visitors at this time Sitter present at this time. 21:30 Safety Checks: Personal items have been removed. The door is open or patient has been aa1 placed in a hallway bed/chair. There are no family/friend visitors at this time Sitter present at this time. 21:45 Safety Checks: Personal items have been removed. The door is open or patient has been aa1 placed in a hallway bed/chair. There are no family/friend visitors at this time Sitter present at this time. 22:00 Safety Checks: Personal items have been removed. The door is open or patient has been aa1 placed in a hallway bed/chair. There are no family/friend visitors at this time Sitter present at this time. 22:15 Safety Checks: Personal items have been removed. The door is open or patient has been aa1 placed in a hallway bed/chair. There are no family/friend visitors at this time Sitter present at this time. 22:30 Safety Checks: Personal items have been removed. The door is open or patient has been aa1 placed in a hallway bed/chair. There are no family/friend visitors at this time Sitter present at this time. 22:42 Diet: Patient given juice. aa1 22:45 Safety Checks: Personal items have been removed. The door is open or patient has been aa1 placed in a hallway bed/chair. There are no family/friend visitors at this time Sitter present at this time. 23:00 Safety Checks: Personal items have been removed. The door is open or patient has been aa1 placed in a hallway bed/chair. There are no family/friend visitors at this time Sitter present at this time. 23:15 Safety Checks: Personal items have been removed. The door is open or patient has been aa1 placed in a hallway bed/chair. There are no family/friend visitors at this time Sitter present at this time. 23:30 Safety Checks: Personal items have been removed. The door is open or patient has been aa1 placed in a hallway bed/chair. There are no family/friend visitors at this time Sitter present at this time. 23:45 Safety Checks: Personal items have been removed. The door is open or patient has been aa1 placed in a hallway bed/chair. There are no family/friend visitors at this time Sitter present at this time. 11/09 00:00 Safety Checks: Personal items have been removed. The door is open or patient has been aa1 placed in a hallway bed/chair. There are no family/friend visitors at this time Sitter present at this time. 00:15 Safety Checks: Personal items have been removed. The door is open or patient has been aa1 placed in a hallway bed/chair. There are no family/friend visitors at this time Sitter present at this time. 00:30 Safety Checks: Personal items have been removed. The door is open or patient has been aa1 placed in a hallway bed/chair. There are no family/friend visitors at this time Sitter present at this time. 00:45 Safety Checks: Personal items have been removed. The door is open or patient has been aa1 placed in a hallway bed/chair. There are no family/friend visitors at this time Sitter present at this time. 01:00 Safety Checks: Personal items have been removed. The door is open or patient has been aa1 placed in a hallway bed/chair. There are no family/friend visitors at this time Sitter present at this time. 01:15 Safety Checks: Personal items have been removed. The door is open or patient has been aa1 placed in a hallway bed/chair. There are no family/friend visitors at this time Sitter present at this time. 01:30 Safety Checks: Personal items have been removed. The door is open or patient has been aa1 placed in a hallway bed/chair. There are no family/friend visitors at this time Sitter present at this time. 01:45 Safety Checks: Personal items have been removed. The door is open or patient has been aa1 placed in a hallway bed/chair. There are no family/friend visitors at this time Sitter present at this time. 02:00 Safety Checks: Personal items have been removed. The door is open or patient has been aa1 placed in a hallway bed/chair. There are no family/friend visitors at this time Sitter present at this time. 02:15 Safety Checks: Personal items have been removed. The door is open or patient has been aa1 placed in a hallway bed/chair. There are no family/friend visitors at this time Sitter present at this time. 02:30 Safety Checks: Personal items have been removed. The door is open or patient has been aa1 placed in a hallway bed/chair. There are no family/friend visitors at this time Sitter present at this time. 02:45 Safety Checks: Personal items have been removed. The door is open or patient has been aa1 placed in a hallway bed/chair. There are no family/friend visitors at this time Sitter present at this time. 03:00 Safety Checks: Personal items have been removed. The door is open or patient has been aa1 placed in a hallway bed/chair. There are no family/friend visitors at this time Sitter present at this time. 03:08 Safety checks: Items removed: yes. Door open/sign placed on door: Patient placed in ag4 hallway bed. Family/friend present: no. Sitter present: Yes. 03:15 Safety Checks: Personal items have been removed. The door is open or patient has been aa1 placed in a hallway bed/chair. There are no family/friend visitors at this time Sitter present at this time. 03:30 Safety Checks: Personal items have been removed. The door is open or patient has been aa1 placed in a hallway bed/chair. There are no family/friend visitors at this time Sitter present at this time. 03:45 Safety Checks: Personal items have been removed. The door is open or patient has been aa1 placed in a hallway bed/chair. There are no family/friend visitors at this time Sitter present at this time. 04:00 Safety Checks: Personal items have been removed. The door is open or patient has been aa1 placed in a hallway bed/chair. There are no family/friend visitors at this time Sitter present at this time. 04:00 Patient did not have IV access during this emergency room visit. aa1 Administered Medications: 11/07 22:21 Drug: Ativan 2 mg Route: PO; ca1 23:26 Follow up: Response: No adverse reaction; Anxiety decreased ca1 22:30 Drug: Geodon 20 mg Route: IM; Site: left deltoid; ca1 23:26 Follow up: Response: No adverse reaction; Anxiety decreased ca1 11/08 02:32 Drug: Potassium Chloride 40 mEq Route: PO; ak1 02:32 Follow up: Response: No adverse reaction ak1 11:41 Drug: Geodon 10 mg Route: IM; Site: left deltoid; ph 12:30 Follow up: Response: No adverse reaction; Patient is sedated ph 11:42 Drug: Ativan 2 mg Route: IM; Site: left deltoid; ph 19:17 Follow up: Response: No adverse reaction; Patient is sedated ph 22:41 Drug: Nicotine 21 mg/24 hr 1 patches Route: Transdermal; Site: affected area; aa1 Outcome: 12:36 ER care complete, transfer ordered by . massimo 11/09 04:00 Discharged to Law Enforcement aa1 Condition: good Discharge instructions given to patient, Pt discharged into custody of mental health deputy 04:04 Patient left the ED. aa1 Signatures: Mayte Maldonado Alissa, RN RN aa1 Debbie Rivera Irene RN Nick Chambers MD MD rn Calderon, Audri, RN RN aa5 Simran Quiros, MASSIMO KEYS ss Liu Petit PA PA jr8 Danna Mar RN MASSIMO ak1 Peggy Baumann RN MASSIMO Karissa Mcdonald, RN RN 2 Ashley Rehman 3 Chey Roman mw2 KitRafi sanchez lk2 Teagan Reed RN RN ls4 Niranjan Samson ag4 Cristina Phillip ar5 Nancy Tapia RN RN ca1 Corrections: (The following items were deleted from the chart) 11/07 16:25 16:24 BP 144 / 93; Pulse 68bpm; Resp 16bpm; Spontaneous; Pulse Ox 98% RA; Temp 98.0F aa5 Temporal; 90.72 kg Reported; Height 6 ft. 1 in. Reported; BMI: 26.3; Pain 0/10; aa5 23:32 22:35 BP 121 / 65; Pulse 72bpm; Resp 18bpm; Pulse Ox 98% RA; Temp 98.2F; ca1 ca1 11/08 00:17 11/07 21:00 Reassessment: Patient appears in no apparent distress at this time. Patient ca1 is alert, oriented x 3, equal unlabored respirations, skin warm/dry/pink. ca1 11/08 00:17 11/07 21:55 Reassessment: Patient appears in no apparent distress at this time. Patient ca1 is alert, oriented x 3, equal unlabored respirations, skin warm/dry/pink. ca1 11/08 99:17 11/07 22:02 Reassessment: KYLE Petit at bedside. ca1 ca1 11/08 99:11/07 23:29 Reassessment: Patient appears in no apparent distress at this time. Pt ca1 sleeping, easily awaken by verbal stimuli. ca1 11/08 01:05 01:03 Reassessment: Pt sleeping comfortably. ca1 ca1 02:34 11/07 23:31 BP 117 / 71; Pulse 75bpm; Resp 18bpm; Pulse Ox 98% RA; Temp 97.9F; ca1 ca1
--- NOTE | 2018-11-08 12:38 | EDPHYS ---
Physician Documentation [facility] Name: Tanner Lopes Age: 38 yrs Sex: Male : 1980 Arrival Date: 11/07/2018 Time: 15:47 Bed 16 Private MD: ED Physician Nick Ocampo HPI: 11/07 17:50 This 38 yrs old Male presents to ER via Ambulatory with complaints of Suicidal jr8 Ideation. 17:50 The patient presents to the emergency department with anxiety, depression, suicide jr8 ideation, and the patient has a plan, to cut oneself and bleed. Onset: The symptoms/episode began/occurred gradually, 2 day(s) ago. Past psychiatric history: Prior diagnosis: bipolar disorder, depression, schizophrenia. Associated signs and symptoms: The patient has no apparent associated signs or symptoms. Severity of symptoms: At their worst the symptoms were moderate in the emergency department the symptoms are unchanged. It is unknown whether or not the patient has had similar symptoms in the past. The patient has not recently seen a physician. Patient stated that he has been having trouble with the law and other individuals. Stated that he is trying to stay out of trouble but that people are not helping him. Stated that he feels very anxious and now wants to slit his throat to kill himself . Historical: - Allergies: 15:50 No Known Allergies; aa5 - Home Meds: 11/08 00:49 gabapentin Oral [Active]; Hydroxyzine Oral [Active]; trazadone [Active]; Vistaril Oral ak1 [Active]; - PMHx: 11/07 15:50 Anxiety; Bipolar disorder; Depression; Schizophrenia; aa5 - Immunization history:: Adult Immunizations unknown. - Social history:: Smoking status: Patient uses tobacco products, smokes two packs cigarettes per day. Patient uses street drugs, cocaine, marijuana. - Ebola Screening: : No symptoms or risks identified at this time. ROS: 17:50 Eyes: Negative for injury, pain, redness, and discharge, ENT: Negative for injury, jr8 pain, and discharge, Neck: Negative for injury, pain, and swelling, Cardiovascular: Negative for chest pain, palpitations, and edema, Respiratory: Negative for shortness of breath, cough, wheezing, and pleuritic chest pain, Abdomen/GI: Negative for abdominal pain, nausea, vomiting, diarrhea, and constipation, Back: Negative for injury and pain, MS/Extremity: Negative for injury and deformity, Skin: Negative for injury, rash, and discoloration, Neuro: Negative for headache, weakness, numbness, tingling, and seizure. 17:50 Psych: Positive for anxiety, depression, suicidal ideation. Exam: 17:50 Eyes: Pupils equal round and reactive to light, extra-ocular motions intact. Lids and jr8 lashes normal. Conjunctiva and sclera are non-icteric and not injected. Cornea within normal limits. Periorbital areas with no swelling, redness, or edema. ENT: Nares patent. No nasal discharge, no septal abnormalities noted. Tympanic membranes are normal and external auditory canals are clear. Oropharynx with no redness, swelling, or masses, exudates, or evidence of obstruction, uvula midline. Mucous membranes moist. Neck: Trachea midline, no thyromegaly or masses palpated, and no cervical lymphadenopathy. Supple, full range of motion without nuchal rigidity, or vertebral point tenderness. No Meningismus. Cardiovascular: Regular rate and rhythm with a normal S1 and S2. No gallops, murmurs, or rubs. Normal PMI, no JVD. No pulse deficits. Respiratory: Lungs have equal breath sounds bilaterally, clear to auscultation and percussion. No rales, rhonchi or wheezes noted. No increased work of breathing, no retractions or nasal flaring. Abdomen/GI: Soft, non-tender, with normal bowel sounds. No distension or tympany. No guarding or rebound. No evidence of tenderness throughout. Back: No spinal tenderness. No costovertebral tenderness. Full range of motion. Skin: Warm, dry with normal turgor. Normal color with no rashes, no lesions, and no evidence of cellulitis. MS/ Extremity: Pulses equal, no cyanosis. Neurovascular intact. Full, normal range of motion. Neuro: Awake and alert, GCS 15, oriented to person, place, time, and situation. Cranial nerves II-XII grossly intact. Motor strength 5/5 in all extremities. Sensory grossly intact. Cerebellar exam normal. Normal gait. 17:50 Psych: Behavior/mood is anxious, suicidal, depressed, angry, Affect is animated, Oriented to person, place, time, Patient having thoughts of suicide. Plan for suicide is see hpi Judgement / Insight is impaired. Memory is normal. Delusions/hallucinations are not present. Vital Signs: 15:55 BP 144 / 93; Pulse 68; Resp 16 S; Temp 98.0(TE); Pulse Ox 98% on R/A; Weight 90.72 kg aa5 (R); Height 6 ft. 1 in. (185.42 cm) (R); Pain 0/10; 19:55 BP 121 / 65; Pulse 72; Resp 18; Temp 98.2; Pulse Ox 98% on R/A; ca1 23:50 BP 117 / 71; Pulse 75; Resp 18; Temp 97.9; Pulse Ox 98% on R/A; ca1 02/04 04:07 BP 123 / 70; Pulse 58; Resp 16; Temp 98.2(TE); Pulse Ox 100% on R/A; Pain 0/10; ak1 08:00 BP 138 / 80; Pulse 75; Resp 18; Temp 97.8(O); Pulse Ox 100% on R/A; dh3 12:03 BP 129 / 69; Pulse 83; Resp 20; Temp 98.3; Pulse Ox 98% on R/A; ph 16:00 BP 128 / 78; Pulse 82; Resp 18; Temp 97.8(O); Pulse Ox 99% on R/A; dh3 19:11 BP 128 / 69; Pulse 64; Resp 16; Temp 98.2; Pulse Ox 100% on R/A; Pain 0/10; aa1 02/05 03:07 BP 132 / 78; Pulse 85; Resp 16; Temp 98(TE); Pulse Ox 99% on R/A; ag4 11/07 15:55 Body Mass Index 26.39 (90.72 kg, 185.42 cm) aa5 MDM: 11/07 16:50 Patient medically screened. jr8 11/08 03:06 Data reviewed: vital signs, nurses notes, lab test result(s), EKG. Data interpreted: jr8 Pulse oximetry: on room air is 98 %. Interpretation: normal. Counseling: I had a detailed discussion with the patient and/or guardian regarding: the historical points, exam findings, and any diagnostic results supporting the discharge/admit diagnosis, lab results. ED course: Awaiting transfer to psych facility. Patient sleeping currently. VSS. 07:13 ED course: Pt sleeping comfortably, normal vitals, awaiting psychiatric transfer. . rn 12:35 ED course: Spoke with [facility] and gave report to REHAB CARE ASSISTANT. . rn 12:36 Differential diagnosis: depression, psychosis secondary to non-compliance. rn 11/07 17:07 Order name: Acetaminophen [facility] 11/07 17:07 Order name: Basic Metabolic Panel; Complete Time: 18:45 [facility] 11/07 17:07 Order name: CBC with Diff; Complete Time: 18:07 [facility] 11/07 17:07 Order name: ETOH Level; Complete Time: 18:45 [facility] 11/07 17:07 Order name: Hepatic Function; Complete Time: 18:45 [facility] 11/07 17:07 Order name: PT-INR; Complete Time: 18:07 [facility] 11/07 17:07 Order name: Ptt, Activated; Complete Time: 18:07 [facility] 11/07 17:07 Order name: Salicylate; Complete Time: 18:45 [facility] 11/07 17:07 Order name: Urine Drug Screen; Complete Time: 18:22 [facility] 11/07 17:08 Order name: Acetaminophen Level; Complete Time: 18:45 EDMS 11/07 18:01 Order name: Urine Dipstick--Ancillary (enter results); Complete Time: 20:38 eb 11/07 17:07 Order name: EKG; Complete Time: 17:08 [facility] 11/07 17:07 Order name: EKG - Nurse/Tech; Complete Time: 19:40 [facility] 11/07 17:07 Order name: IV Saline Lock; Complete Time: 18:25 [facility] 11/07 17:07 Order name: Labs collected and sent; Complete Time: 18:25 [facility] 11/07 17:07 Order name: Urine Dipstick-Ancillary (obtain specimen); Complete Time: 18:25 [facility] 11/08 05:52 Order name: Diet Regular; Complete Time: 05:52 rr5 11/08 07:29 Order name: Diet Regular; Complete Time: 07:29 ph 11/08 10:24 Order name: Diet Regular; Complete Time: 10:26 tw2 11/08 15:28 Order name: Diet Regular; Complete Time: 15:29 dh3 Administered Medications: 11/07 22:21 Drug: Ativan 2 mg Route: PO; ca1 23:26 Follow up: Response: No adverse reaction; Anxiety decreased ca1 22:30 Drug: Geodon 20 mg Route: IM; Site: left deltoid; ca1 23:26 Follow up: Response: No adverse reaction; Anxiety decreased ca1 11/08 02:32 Drug: Potassium Chloride 40 mEq Route: PO; ak1 02:32 Follow up: Response: No adverse reaction ak1 11:41 Drug: Geodon 10 mg Route: IM; Site: left deltoid; ph 12:30 Follow up: Response: No adverse reaction; Patient is sedated ph 11:42 Drug: Ativan 2 mg Route: IM; Site: left deltoid; ph 19:17 Follow up: Response: No adverse reaction; Patient is sedated ph 22:41 Drug: Nicotine 21 mg/24 hr 1 patches Route: Transdermal; Site: affected area; aa1 Disposition: 11/09 06:40 Co-signature as Attending Physician, Davonte Hernandez MD I agree with the assessment and allen plan of care. Disposition: 11/08/18 12:36 Transfer ordered to Psych Facility. Diagnosis is Suicidal ideations. - Reason for transfer: Higher level of care. - Accepting physician is . - Condition is Stable. - Problem is new. - Symptoms have improved. Signatures: Dispatcher [employer] Re Chaudhari RN RN aa1 Davonte Hernandez MD MD cha Nieto, Roman, MD MD rn Calderon, Audri, RN RN aa5 Liu Petit PA PA jr8 Danna Mar RN RN ak1 Peggy Baumann RN RN ph AcobNancy RN RN ca1 Corrections: (The following items were deleted from the chart) 04:04 11/08 12:36 11/08/2018 12:36 Transfer ordered to Psych Facility. Diagnosis is Suicidal aa1 ideations. Reason for transfer: Higher level of care. Accepting physician is . Condition is Stable. Problem is new. Symptoms have improved. rn
[2018-11-08] MEDS ORDERED: NICOTINE 21 MG/PAT TD ONE (22:49)
[2018-11-09 04:20] VITALS: BP 132/78; TEMP 98; O2SAT 99
== END 2018-11-09 04:04 ==
LOC: ER 15:46
DX: R45.851 Suicidal ideations (principal); F41.9 Anxiety disorder, unspecified; F31.9 Bipolar disorder, unspecified; F20.9 Schizophrenia, unspecified; F17.210 Nicotine dependence, cigarettes, uncomplicated; Z79.899 Other long term (current) drug therapy
CPT/HCPCS: 36415; 80048; 80076; 80307; 80320; 80329; 81003; 85025; 85610; 85730; 93005; 96372; 99285; J3486

== ENCOUNTER 2018-12-23 16:24 | Emergency (ER) | payer SELFPAY ==
[2018-12-23] MEDS ORDERED: ZIPRASIDONE MESYLA 20 MG/VIAL IM ONE (16:56)
[2018-12-23] MEDS ORDERED: WATER FOR INJ,STERILE 10 ML ONE (16:57)
[2018-12-23 17:35] LABS: Absolute Lymphocytes (CBC) 1.8 K/uL (0.7-4.9); Absolute Monocytes 0.6 K/uL (0.1-1.3); Absolute Neutrophil 7.2 K/uL (1.8-8.0); Basophils % 0.2 % (0-1.3); Eosinophils % 0.7 % (0-4.4); Hematocrit 40.8 % (39.6-49.0); Lymphocytes % 18.6 % (15.3-44.8); MPV 7.8 fL (7.6-11.3); Monocytes % 6.1 % (3.3-12.3); RBC Red Blood Cell Count 4.36 M/uL (4.33-5.43)
[2018-12-23 17:48] LABS: Protime INR 1.01
[2018-12-23 18:16] LABS: ALT/SGPT 29 U/L (12-78); AST/SGOT 36 U/L (15-37); Albumin 4.7 g/dL (3.4-5.0); Alkaline Phosphatase 90 U/L (45-117); BUN Blood Urea Nitrogen 12 mg/dL (7-18); Bicarbonate 26 mmol/L (21-32); Bilirubin Direct 0.4 mg/dL (0-0.2); Bilirubin Total 1.4 mg/dL (0.2-1.0); Glucose Level 119 mg/dL (74-106); Potassium 3.2 mmol/L (3.5-5.1); Protein, Total 8.4 g/dL (6.4-8.2); Sodium Level 141 mmol/L (136-145)
[2018-12-23 20:51] LABS: Barbiturates NEGATIVE (NEGATIVE); Benzodiazepines NEGATIVE (NEGATIVE); Cocaine POSITIVE (NEGATIVE); METHAMPHETAM POSITIVE (NEGATIVE); Methadone NEGATIVE (NEGATIVE); Opiates NEGATIVE (NEGATIVE); Phencyclidine NEGATIVE (NEGATIVE); THC Cannibis POSITIVE (NEGATIVE)
[2018-12-23 21:18] LABS: Urine Blood NEGATIVE (NEG); Urine Glucose NEGATIVE (NEG); Urine Protein NEGATIVE (NEG); Urine pH 5.5 (5.0-7.0)
--- NOTE | 2018-12-24 06:03 | EKG ---
Test Date: 2018-12-23 Test Time: 17:12:22 Production Intern: ANAND MEASUREMENT RESULTS: Intervals: Rate: 72 [place]: 158 QRSD: 96 QT: 382 QTc: 418 [place]: P: 72 [place]: 158 QRS: 66 T: 46 INTERPRETIVE STATEMENTS: Normal sinus rhythm Normal ECG Compared to ECG 11/07/2018 19:42:14 Myocardial infarct finding no longer present Electronically Signed On 12-24-18 06:02:06 CDT by Carl Barnes
--- NOTE | 2018-12-24 07:59 | EDPHYS ---
Physician Documentation [facility] Name: Tanner Lopes Age: 38 yrs Sex: Male : 1980 Arrival Date: 12/23/2018 Time: 16:25 Bed 18 Private MD: ED Physician Davonte Hernandez HPI: 12/23 17:09 This 38 yrs old Male presents to ER via Law Enforcement with complaints of kdr Suicidal Ideation. 17:09 This 38 yrs old Male presents to ER via Law Enforcement with complaints of kdr Homicidal Ideation. 17:09 The patient presents to the emergency department with anxiety, Home situation, kdr homicidal ideation, the patient has harmed or wants to harm People around his home, Plan? None. Onset: The symptoms/episode began/occurred suddenly, just prior to arrival. Past psychiatric history: Prior diagnosis: bipolar disorder, depression, schizophrenia, Psychiatric medications include: none, the patient has had a prior suicide gesture, the patient has a previous inpatient psychiatric history, the patient's last psychiatric treatment was Unknown. Associated signs and symptoms: Pertinent positives; anxiety, homicidal ideation, Pertinent negatives: chest pain, delusions, depression, hallucinations, nausea, night sweats, shortness of breath, substance abuse, suicide ideation. Severity of symptoms: At their worst the symptoms were moderate just prior to arrival, in the emergency department the symptoms are unchanged. The patient has experienced similar episodes in the past, multiple times, chronically. The patient has not recently seen a physician. Historical: - Allergies: 16:50 No Known Allergies; jl7 - Home Meds: 16:50 None [Active]; jl7 - PMHx: 16:50 Anxiety; Bipolar disorder; Depression; Schizophrenia; jl7 - PSHx: 16:50 None; jl7 - Immunization history:: Adult Immunizations unknown. - Social history:: Smoking status: Patient uses tobacco products, smokes one-half pack cigarettes per day, Patient uses alcohol, weekly. street drugs, cocaine, marijuana, Methamphetamine (Meth). - Ebola Screening: : No symptoms or risks identified at this time. ROS: 17:09 Constitutional: Negative for fever, chills, and weight loss, Eyes: Negative for injury, kdr pain, redness, and discharge, Neck: Negative for injury, pain, and swelling, Cardiovascular: Negative for chest pain, palpitations, and edema, Respiratory: Negative for shortness of breath, cough, wheezing, and pleuritic chest pain, Abdomen/GI: Negative for abdominal pain, nausea, vomiting, diarrhea, and constipation, Back: Negative for injury and pain, : Negative for injury, bleeding, discharge, and swelling. 17:09 Psych: Positive for anxiety, depression, homicidal ideation, Negative for suicide gesture, suicidal ideation. Exam: 17:09 Constitutional: This is a well developed, well nourished patient who is awake, alert, kdr and in no acute distress. Head/Face: Normocephalic, atraumatic. Eyes: Pupils equal round and reactive to light, extra-ocular motions intact. Lids and lashes normal. Conjunctiva and sclera are non-icteric and not injected. Cornea within normal limits. Periorbital areas with no swelling, redness, or edema. 17:09 Psych: Behavior/mood is anxious, aggressive, depressed, angry, Affect is animated, Oriented to person, place, time, Patient having thoughts of homicide. Denies plan. Homicidal thoughts directed towards People at his home Judgement / Insight is impaired. Delusions/hallucinations are not present. 12/26 07:57 Psych: not suicidal, not homicidal, wants to go home. he states he willrefrain from allen drugs and will follow up with [facility]. if problems occur pt will return to the r for help. pt is alert and oriented x 4. Vital Signs: 12/23 16:50 BP 136 / 91; Pulse 103; Resp 22 S; Pulse Ox 100% on R/A; Weight 83.91 kg (R); Height 6 jl7 ft. 1 in. (185.42 cm) (R); 16:54 Temp 98.3(O); jl7 20:07 BP 120 / 96; Pulse 84; Resp 16; Pulse Ox 99% on R/A; mt 12/24 00:23 BP 132 / 84; Pulse 90; Resp 16; Pulse Ox 99% on R/A; mt 05:57 BP 127 / 98; Pulse 89; Resp 16; Temp 97.1(O); Pulse Ox 100% on R/A; mt 07:30 BP 136 / 74; Pulse 76; Resp 18; Temp 98; Pulse Ox 98% ; Pain 0/10; sv 12:00 BP 130 / 77; Pulse 77; Resp 16; Pulse Ox 99% ; sv 16:39 BP 137 / 76; Pulse 84; Resp 18; Pulse Ox 100% ; Pain 0/10; ms 19:21 BP 124 / 84; Pulse 79; Resp 18; Pulse Ox 99% on R/A; mt 21:48 BP 132 / 90; Pulse 88; Resp 16; Pulse Ox 100% on R/A; mt 12/25 01:41 BP 133 / 87; Pulse 74; Resp 16; Pulse Ox 96% on R/A; mt 04:55 BP 115 / 91; Pulse 90; Resp 16; Temp 97.9; Pulse Ox 100% on R/A; ag4 07:20 BP 141 / 81; Pulse 65; Resp 18; Temp 96.8; Pulse Ox 100% ; ab1 07:35 BP 138 / 89; Pulse 68; Resp 17; Temp 98.3; Pulse Ox 99% on R/A; ab1 12:00 BP 124 / 61; Pulse 66; Resp 18; Temp 98.7; Pulse Ox 100% on R/A; ab1 16:00 BP 134 / 70; Pulse 64; Resp 18; Temp 97.4; Pulse Ox 97% on R/A; ab1 22:30 BP 117 / 92; Pulse 80; Resp 14 S; Temp 97.9(T); Pulse Ox 100% on R/A; cc3 12/26 02:26 BP 120 / 98; Pulse 80; Resp 14; Temp 98.4(T); Pulse Ox 100% on R/A; ag4 08:00 BP 121 / 87; Pulse 85; Resp 17; Pulse Ox 99% on R/A; Pain 0/10; rb1 12/23 16:50 Body Mass Index 24.41 (83.91 kg, 185.42 cm) jl7 MDM: 12/23 17:09 Data reviewed: vital signs, nurses notes, lab test result(s). Counseling: I had a kdr detailed discussion with the patient and/or guardian regarding: the historical points, exam findings, and any diagnostic results supporting the discharge/admit diagnosis, lab results. 20:10 Patient medically screened. rn 12/24 06:02 ED course: Patient comfortable and pleasant all night, towards end of night became more rn agitated, asked to repeat geodon, but patient very violent and dangerous, mental health deputy called after patient threatening to harm anyone that goes near him.. 12/23 16:48 Order name: Acetaminophen; Complete Time: 19:42 [facility] 12/23 16:48 Order name: Basic Metabolic Panel; Complete Time: 19:42 [facility] 12/23 16:48 Order name: CBC with Diff; Complete Time: 19:42 [facility] 12/23 16:48 Order name: ETOH Level; Complete Time: 19:42 [facility] 12/23 16:48 Order name: Hepatic Function; Complete Time: 19:42 [facility] 12/23 16:48 Order name: PT-INR; Complete Time: 19:42 [facility] 12/23 16:48 Order name: Ptt, Activated; Complete Time: 19:42 [facility] 12/23 16:48 Order name: Salicylate; Complete Time: 19:42 [facility] 12/23 16:48 Order name: Urine Drug Screen; Complete Time: 00:37 [facility] 12/23 20:42 Order name: Urine Dipstick--Ancillary (enter results); Complete Time: 00:37 [facility] 12/23 16:48 Order name: IV Saline Lock; Complete Time: 19:03 [facility] 12/23 16:48 Order name: Labs collected and sent; Complete Time: 19:03 [facility] 12/23 16:48 Order name: Urine Dipstick-Ancillary (obtain specimen); Complete Time: 20:15 [facility] 12/23 16:49 Order name: Diet Regular; Complete Time: 16:49 [facility] 12/23 17:18 Order name: EKG Electrocardiogram; Complete Time: 18:23 EDUT 12/24 09:10 Order name: Diet Finger Food; Complete Time: 09:11 em1 12/25 08:46 Order name: Diet Regular; Complete Time: 08:47 em 12/25 18:03 Order name: Diet Regular; Complete Time: 18:03 em 12/26 07:29 Order name: Diet Finger Food; Complete Time: 07:30 bd Administered Medications: 12/23 16:50 Drug: Geodon 20 mg Route: IM; Site: left deltoid; jl7 17:45 Follow up: Response: No adverse reaction; Marked relief of symptoms 7 12/25 09:37 Drug: HALdol (as decanoate) 10 mg Route: IM; Site: right gluteus; 10:31 Follow up: Response: No adverse reaction; Marked relief of symptoms em 09:37 Drug: Ativan 2 mg Route: IM; Site: right deltoid; em 10:30 Follow up: Response: No adverse reaction; Marked relief of symptoms em 13:00 Drug: Potassium Effervescent Tablet 50 mEq Route: PO; em 14:23 Follow up: Response: No adverse reaction em Disposition: 12/26/18 08:01 Discharged to Home. Impression: Bipolar disorder, Suicidal ideations - resolved, Cocaine abuse, Alcohol abuse with intoxication, Abuse of non-psychoactive substances, Adverse effect of amphetamines. - Condition is Stable. - Discharge Instructions: Stimulant Use Disorder-Amphetamines, Stimulant Use Disorder-Cocaine, Bipolar Disorder, Substance Use Disorder, Suicidal Feelings: How to Help Yourself, Helping Someone Who is Suicidal, Stimulant Use Disorder-Methamphetamines, Stress and Stress Management. - Medication Reconciliation Form, Thank You Letter, Antibiotic Education, Prescription Opioid Use form. - Follow up: Private Physician; When: 1 - 2 days; Reason: Recheck today's complaints, Continuance of care, Re-evaluation by your physician. - Problem is new. - Symptoms have improved. Signatures: Dispatcher [employer] EDMS Davonte Hernandez MD MD cha Rittger, Kevin, MD MD kdr Munoz, Edgar, OPERATIONS TEAM LEADER OPERATIONS TEAM LEADER Nick Ferreira MD MD rn Smirch, Shelby, RN RN ss Karissa Mcdonald RN RN tw2 Camilo Card RN RN jl7 Robel Farmer MD MD gs Corrections: (The following items were deleted from the chart) 12/26 07:59 12/24 07:58 12/24/2018 07:58 Transfer ordered to Psych Facility. Diagnosis is Suicidal allen ideations; Bipolar disorder. Reason for transfer: Higher level of care. Accepting physician is to psych. Condition is Stable. Problem is new. Symptoms have improved. allen 12/26 08:45 08:01 12/26/2018 08:01 Discharged to Home. Impression: Bipolar disorder; Suicidal tw2 ideations - resolved; Cocaine abuse; Alcohol abuse with intoxication; Abuse of non-psychoactive substances; Adverse effect of amphetamines. Condition is Stable. Forms are Medication Reconciliation Form, Thank You Letter, Antibiotic Education, Prescription Opioid Use. Follow up: Private Physician; When: 1 - 2 days; Reason: Recheck today's complaints, Continuance of care, Re-evaluation by your physician. Problem is new. Symptoms have improved. allen
--- NOTE | 2018-12-24 07:59 | ER ---
Nurse's Notes [facility] Name: Tanner Lopes Age: 38 yrs Sex: Male : 1980 Arrival Date: 12/23/2018 Time: 16:25 Bed 18 Private MD: Diagnosis: Bipolar disorder;Suicidal ideations-resolved;Cocaine abuse;Alcohol abuse with intoxication;Abuse of non-psychoactive substances;Adverse effect of amphetamines Presentation: 12/23 16:37 Presenting complaint: Patient states: "I just started freaking out because I hate [facility] people. These people cheated me out of money, just paid me in beer and coke but wouldn't pay me money and I'm freaking out bad.". Transition of care: patient was not received from another setting of care. Onset of symptoms is unknown. Risk Assessment: Do you want to hurt yourself or someone else? Patient reports desire/thoughts of hurting themselves or someone else. Provider notified. Initial Sepsis Screen: Does the patient meet any 2 criteria? No. Patient's initial sepsis screen is negative. Does the patient have a suspected source of infection? No. Patient's initial sepsis screen is negative. Care prior to arrival: None. 16:37 Method Of Arrival: Law Enforcement: [place] [employer] [facility] 16:37 Acuity: RADHA 2 jl7 Triage Assessment: 16:50 General: Appears in no apparent distress. uncomfortable, Behavior is cooperative, jl7 anxious. Pain: Denies pain. EENT: No signs and/or symptoms were reported regarding the EENT system. Neuro: Level of Consciousness is awake, alert, obeys commands, Oriented to person, place, time, situation. Cardiovascular: Denies chest pain, Patient's skin is warm and dry. Respiratory: Airway is patent Respiratory effort is even, unlabored, Respiratory pattern is regular, symmetrical, Denies shortness of breath. GI: No signs and/or symptoms were reported involving the gastrointestinal system. : No signs and/or symptoms were reported regarding the genitourinary system. Derm: Skin is pink, warm \\T\\ dry. Musculoskeletal: No signs and/or symptoms reported regarding the musculoskeletal system. Historical: - Allergies: 16:50 No Known Allergies; jl7 - Home Meds: 16:50 None [Active]; jl7 - PMHx: 16:50 Anxiety; Bipolar disorder; Depression; Schizophrenia; jl7 - PSHx: 16:50 None; jl7 - Immunization history:: Adult Immunizations unknown. - Social history:: Smoking status: Patient uses tobacco products, smokes one-half pack cigarettes per day, Patient uses alcohol, weekly. street drugs, cocaine, marijuana, Methamphetamine (Meth). - Ebola Screening: : No symptoms or risks identified at this time. Screenin:54 Abuse screen: Denies threats or abuse. Denies injuries from another. Nutritional jl7 screening: No deficits noted. Tuberculosis screening: No symptoms or risk factors identified. Fall Risk None identified. Assessment: 16:54 General: See triage assessment. jl7 18:00 Reassessment: Pt laying in bed with eyes closed, respirations even and unlabored, no jl7 signs of distress noted. 18:58 Reassessment: Patient appears in no apparent distress at this time. No changes from jl7 previously documented assessment. 19:10 General: Appears in no apparent distress. comfortable, Behavior is cooperative, tl2 restless. Pain: Denies pain. Neuro: Level of Consciousness is awake, alert, obeys commands, Oriented to person, place, time, situation. Cardiovascular: Denies chest pain. Respiratory: Airway is patent Respiratory effort is even, unlabored, Respiratory pattern is regular, symmetrical. GI: No signs and/or symptoms were reported involving the gastrointestinal system. Derm: Skin is pink, warm \\T\\ dry. 20:30 Reassessment: Patient appears in no apparent distress at this time. Patient and/or tl2 family updated on plan of care and expected duration. Pain level reassessed. 21:30 Reassessment: Patient and/or family updated on plan of care and expected duration. Pain tl2 level reassessed. 22:30 Reassessment: Patient and/or family updated on plan of care and expected duration. Pain tl2 level reassessed. 12/24 00:00 Reassessment: Patient appears in no apparent distress at this time. Patient and/or tl2 family updated on plan of care and expected duration. Pain level reassessed. 01:00 Reassessment: Patient appears in no apparent distress at this time. Patient and/or tl2 family updated on plan of care and expected duration. Pain level reassessed. 02:00 Reassessment: Patient appears in no apparent distress at this time. pt appears to be tl2 sleeping, RR even and unlabored. 05:30 Reassessment: Pt became agitated and was verbally aggressive. Security called. tl2 06:15 Reassessment: Pt continues to talk to himself but is sitting in room. tl2 06:48 Reassessment: Mental health deputies at bedside for assessment. tl2 07:31 General: Appears in no apparent distress. comfortable, well developed, Behavior is sv cooperative. Pain: Denies pain. Neuro: Level of Consciousness is awake, alert, obeys commands, Oriented to person, place, time, situation, Moves all extremities. Full function Gait is steady, Speech is normal. Cardiovascular: Patient's skin is warm and dry. Pulses are 3+ in right radial artery and left radial artery. Respiratory: Airway is patent Respiratory effort is even, unlabored, Respiratory pattern is regular, symmetrical. Derm: Skin is pink, warm \\T\\ dry. Musculoskeletal: Range of motion: intact in all extremities. 08:30 Reassessment: Pt given breakfast tray. sv 09:30 Reassessment: Patient appears in no apparent distress at this time. No changes from sv previously documented assessment. Patient and/or family updated on plan of care and expected duration. Pain level reassessed. Patient is alert, oriented x 3, equal unlabored respirations, skin warm/dry/pink. Pt has been cooperative. 10:40 Reassessment: Patient appears in no apparent distress at this time. No changes from sv previously documented assessment. Patient and/or family updated on plan of care and expected duration. Pain level reassessed. Patient is alert, oriented x 3, equal unlabored respirations, skin warm/dry/pink. Pt has been cooperative. 12:00 Reassessment: Patient appears in no apparent distress at this time. No changes from sv previously documented assessment. Patient and/or family updated on plan of care and expected duration. Pain level reassessed. Patient is alert, oriented x 3, equal unlabored respirations, skin warm/dry/pink. Pt has been cooperative. 12:30 Reassessment: Pt given lunch tray. sv 13:50 Reassessment: Patient appears in no apparent distress at this time. No changes from sv previously documented assessment. Patient and/or family updated on plan of care and expected duration. Pain level reassessed. Patient is alert, oriented x 3, equal unlabored respirations, skin warm/dry/pink. Pt has been cooperative. 14:40 Reassessment: Patient appears in no apparent distress at this time. No changes from sv previously documented assessment. Patient and/or family updated on plan of care and expected duration. Pain level reassessed. Patient is alert, oriented x 3, equal unlabored respirations, skin warm/dry/pink. Pt has been cooperative. 15:45 Reassessment: Patient appears in no apparent distress at this time. No changes from sv previously documented assessment. Patient and/or family updated on plan of care and expected duration. Pain level reassessed. Patient is alert, oriented x 3, equal unlabored respirations, skin warm/dry/pink. Pt has been cooperative. 16:30 Reassessment: Patient appears in no apparent distress at this time. No changes from sv previously documented assessment. Patient and/or family updated on plan of care and expected duration. Pain level reassessed. Patient is alert, oriented x 3, equal unlabored respirations, skin warm/dry/pink. Pt has been cooperative. 17:15 Reassessment: Patient appears in no apparent distress at this time. No changes from sv previously documented assessment. Patient and/or family updated on plan of care and expected duration. Pain level reassessed. Patient is alert, oriented x 3, equal unlabored respirations, skin warm/dry/pink. Pt has been cooperative. Pt given dinner tray. 18:22 Reassessment: Patient appears in no apparent distress at this time. No changes from sv previously documented assessment. Patient and/or family updated on plan of care and expected duration. Pain level reassessed. Patient is alert, oriented x 3, equal unlabored respirations, skin warm/dry/pink. Pt has been cooperative. 19:15 Reassessment: Patient appears in no apparent distress at this time. Patient and/or aa1 family updated on plan of care and expected duration. Pain level reassessed. Patient is alert, oriented x 3, equal unlabored respirations, skin warm/dry/pink. Awaiting acceptance to psychiatric facility Patient denies pain at this time. 20:00 Reassessment: Patient appears in no apparent distress at this time. Patient and/or aa1 family updated on plan of care and expected duration. Pain level reassessed. Patient is alert, oriented x 3, equal unlabored respirations, skin warm/dry/pink. Awaiting acceptance to psychiatric facility. 21:00 Reassessment: Patient appears in no apparent distress at this time. Patient and/or aa1 family updated on plan of care and expected duration. Pain level reassessed. Patient is alert, oriented x 3, equal unlabored respirations, skin warm/dry/pink. Awaiting acceptance to psychiatric facility. 22:00 Reassessment: Patient appears in no apparent distress at this time. Patient and/or aa1 family updated on plan of care and expected duration. Pain level reassessed. Patient is alert, oriented x 3, equal unlabored respirations, skin warm/dry/pink. Awaiting acceptance to psychiatric facility. 23:00 Reassessment: Patient appears in no apparent distress at this time. Patient and/or aa1 family updated on plan of care and expected duration. Pain level reassessed. Patient is alert, oriented x 3, equal unlabored respirations, skin warm/dry/pink. Awaiting acceptance to psychiatric facility. 12/25 00:00 Reassessment: Patient appears in no apparent distress at this time. No changes from aa1 previously documented assessment. Patient is alert, oriented x 3, equal unlabored respirations, skin warm/dry/pink. Awaiting acceptance to psychiatric facility. 01:00 Reassessment: Patient appears in no apparent distress at this time. Pt resting quietly aa1 with eyes closed, resp even \\T\\ unlabored. Awaiting acceptance to psychiatric facility. 02:00 Reassessment: Patient appears in no apparent distress at this time. Pt resting quietly aa1 with eyes closed, resp even \\T\\ unlabored. Awaiting acceptance to psychiatric facility. 03:00 Reassessment: Patient appears in no apparent distress at this time. Pt resting quietly aa1 with eyes closed, resp even \\T\\ unlabored. Awaiting acceptance to psychiatric facility. 04:00 Reassessment: Patient appears in no apparent distress at this time. Pt resting quietly aa1 with eyes closed, resp even \\T\\ unlabored. Awaiting acceptance to psychiatric facility. Reassessment: Patient appears in no apparent distress at this time. Pt resting quietly with eyes closed, resp even \\T\\ unlabored. Awaiting acceptance to psychiatric facility. 05:00 Reassessment: Patient appears in no apparent distress at this time. Patient and/or aa1 family updated on plan of care and expected duration. Pain level reassessed. Patient is alert, oriented x 3, equal unlabored respirations, skin warm/dry/pink. Awaiting acceptance to psychiatric facility. 06:00 Reassessment: Patient appears in no apparent distress at this time. Patient and/or aa1 family updated on plan of care and expected duration. Pain level reassessed. Patient is alert, oriented x 3, equal unlabored respirations, skin warm/dry/pink. Awaiting acceptance to psychiatric facility. 06:51 Reassessment: Patient appears in no apparent distress at this time. Patient and/or ab1 family updated on plan of care and expected duration. Pain level reassessed. Patient is alert, oriented x 3, equal unlabored respirations, skin warm/dry/pink. Patient still awaiting acceptance to psychiatric facility. 07:15 Reassessment: Patient appears in no apparent distress at this time. Patient and/or ab1 family updated on plan of care and expected duration. Pain level reassessed. Patient is alert, oriented x 3, equal unlabored respirations, skin warm/dry/pink. pt is still awaiting for acceptance to psychiatric facility. Patient denies pain at this time. 08:00 Reassessment: pt is still awaiting for acceptance to psychiatric facilty. ab1 08:07 Reassessment: Patient appears in no apparent distress at this time. Patient and/or ab1 family updated on plan of care and expected duration. Pain level reassessed. Patient is alert, oriented x 3, equal unlabored respirations, skin warm/dry/pink. 08:40 Reassessment: pt is crying,verbalizing his desperation and his losing hope in life. ab1 Allowed pt to vent out his feelings. Provided papers and crayons to write down his thoughts. 09:00 Reassessment: Patient and/or family updated on plan of care and expected duration. Pain ab1 level reassessed. Patient is alert, oriented x 3, equal unlabored respirations, skin warm/dry/pink. 09:07 Reassessment: breakfast tray provided. ab1 09:14 Reassessment: Dr. Farmer at bedside discussing plan of care with patient. Awaiting for [facility] to fax over exclusionary form. 09:37 Reassessment: Medications to keep him calm were given. ab1 10:01 Reassessment: Patient appears in no apparent distress at this time. Patient and/or ab1 family updated on plan of care and expected duration. Pain level reassessed. Patient is alert, oriented x 3, equal unlabored respirations, skin warm/dry/pink. General: Appears in no apparent distress. Behavior is calm. 10:33 Reassessment: [facility] has declined patient as he has a history of ss aggression. [facility] called stating that currently do not have beds and patient remains on waiting list. Asked [facility] intake nurse if they anticipate discharges any time soon as to which they replied they may not have any until Thursday. [facility] has been contacted and asks to call back in 5 minutes. 10:54 Reassessment: called [facility] who reported that they are at capacity and patient remains on ss waiting list. 11:00 Reassessment: Patient appears in no apparent distress at this time. Patient and/or ab1 family updated on plan of care and expected duration. Pain level reassessed. Patient is alert, oriented x 3, equal unlabored respirations, skin warm/dry/pink. Patient denies pain at this time. Reassessment: pt is still awaiting for transfer to psychiatric facility. 12:00 Reassessment: Patient appears in no apparent distress at this time. Patient and/or ab1 family updated on plan of care and expected duration. Pain level reassessed. Patient is alert, oriented x 3, equal unlabored respirations, skin warm/dry/pink. 12:50 Reassessment: encouraged to eat lunch. calm and cooperative. ab1 13:00 Reassessment: Patient appears in no apparent distress at this time. Patient and/or ab1 family updated on plan of care and expected duration. Pain level reassessed. Patient is alert, oriented x 3, equal unlabored respirations, skin warm/dry/pink. 14:00 Reassessment: Patient appears in no apparent distress at this time. Patient and/or ab1 family updated on plan of care and expected duration. Pain level reassessed. Patient is alert, oriented x 3, equal unlabored respirations, skin warm/dry/pink. General: Appears Behavior is calm, cooperative. 15:00 Reassessment: eyes closed, even respirations and unlabored breathing. Reassessment: ab1 Patient appears in no apparent distress at this time. 16:00 Reassessment: Patient appears in no apparent distress at this time. Patient and/or ab1 family updated on plan of care and expected duration. Pain level reassessed. Patient is alert, oriented x 3, equal unlabored respirations, skin warm/dry/pink. General: Appears Behavior is calm, cooperative. 16:11 Reassessment: pt is still awaiting for transfer to a psychiatric facility. ab1 17:00 Reassessment: Patient appears in no apparent distress at this time. Patient and/or ab1 family updated on plan of care and expected duration. Pain level reassessed. eyes closed, even respiration,unlabored breathing. 18:00 Reassessment: Patient appears in no apparent distress at this time. Patient and/or ab1 family updated on plan of care and expected duration. Pain level reassessed. General: Appears Behavior is calm. 18:11 Reassessment: pt is still awaiting for transfer to a psychiatric facility. ab1 19:00 Reassessment: Patient appears in no apparent distress at this time. Patient and/or ab1 family updated on plan of care and expected duration. Pain level reassessed. Patient is alert, oriented x 3, equal unlabored respirations, skin warm/dry/pink. 19:20 Reassessment: Patient appears in no apparent distress at this time. Patient and/or cc3 family updated on plan of care and expected duration. Pain level reassessed. Received this male patient from morning shift RN Felicity as a case of suicidal ideation. With IV cannula gauge 20 at the left forearm saline locked. 20:18 Reassessment: Patient appears in no apparent distress at this time. Patient and/or cc3 family updated on plan of care and expected duration. Pain level reassessed. 21:20 Reassessment: Patient appears in no apparent distress at this time. Patient and/or cc3 family updated on plan of care and expected duration. Pain level reassessed. 22:00 Reassessment: Patient appears in no apparent distress at this time. Patient and/or cc3 family updated on plan of care and expected duration. Pain level reassessed. Patient is alert, oriented x 3, equal unlabored respirations, skin warm/dry/pink. 23:30 Reassessment: Patient appears in no apparent distress at this time. Patient and/or cc3 family updated on plan of care and expected duration. Pain level reassessed. 12/26 00:00 Reassessment: Patient appears in no apparent distress at this time. Patient and/or cc3 family updated on plan of care and expected duration. Pain level reassessed. 01:00 Reassessment: Patient appears in no apparent distress at this time. Pt is resting in jb4 bed with eyes closed, Respirations are even and unlabored. 02:00 Reassessment: Patient appears in no apparent distress at this time. Patient and/or jb4 family updated on plan of care and expected duration. Pain level reassessed. Patient is alert, oriented x 3, equal unlabored respirations, skin warm/dry/pink. 03:00 Reassessment: Patient appears in no apparent distress at this time. Patient and/or jb4 family updated on plan of care and expected duration. Pain level reassessed. Patient is alert, oriented x 3, equal unlabored respirations, skin warm/dry/pink. 04:00 Reassessment: Patient appears in no apparent distress at this time. Patient and/or jb4 family updated on plan of care and expected duration. Pain level reassessed. Patient is alert, oriented x 3, equal unlabored respirations, skin warm/dry/pink. 05:00 Reassessment: Patient appears in no apparent distress at this time. Patient and/or jb4 family updated on plan of care and expected duration. Pain level reassessed. Patient is alert, oriented x 3, equal unlabored respirations, skin warm/dry/pink. 06:00 Reassessment: Pt is resting in bed with eyes closed, respirations even and unlabored, jb4 no signs of distress noted. 07:00 General: Appears in no apparent distress. comfortable, Behavior is calm, cooperative, rb1 Denies wanting to hurt himself or anyone else.. Pain: Denies pain. Neuro: Level of Consciousness is awake, alert, obeys commands, Oriented to person, place, time, situation. Cardiovascular: Capillary refill < 3 seconds is brisk in bilateral fingers. Respiratory: Airway is patent Respiratory effort is even, unlabored, Respiratory pattern is regular, symmetrical. GI: No signs and/or symptoms were reported involving the gastrointestinal system. : No signs and/or symptoms were reported regarding the genitourinary system. Derm: Skin is pink, warm \\T\\ dry. 08:00 Reassessment: Patient appears in no apparent distress at this time. No changes from rb1 previously documented assessment. Patient denies pain at this time. 08:25 Reassessment: Called security to bring pt. belongings. rb1 Psych: 12/23 16:45 Subjective: Patient's mood is irritable, Delusions are denied, Hallucinations are jl7 denied Having thoughts of suicide. Plan for suicide is "I want to burn my house down.". Subjective: Having thoughts of homicide. Homicidal plan is to "I want to stab people.". Objective: Patient is cooperative, irritable, restless, Speech is rambling, rapid, pressured, Affect is inappropriate, Patient has mutilated themselves by Pt reports "I was stabbing my arms yesterday." Small, superficial abrasions noted on right forearm. Interventions: Removed personal items and placed in bag. Patient placed in hospital gown. Searched person for dangerous items. Pt reports "I can't quite urinate yet.". Suicide Risk Assessment: Sad Person Scale: Sex of patient: Male: Score 1 point. Age of patient: Score 0 point if patient falls outside of specified age parameters. Depression: Score 1 point if signs of depression are present. Previous Attempt: Score 1 point if patient has previously attempted suicide. Substance Abuse: Score 1 point if patient abuses alcohol or drugs. Rational Thinking: Score 1 point if patient is lacking rational thinking. Social Support: Score 1 point if social support is lacking and/or unavailable. Organized Plan: Score 1 point if patient had a plan in place. Relationship: Score 1 point if patient is , , , or for a single male Chronic Sickness: Score 0 point if patient does not have a chronic illness, debilitating, or severe disorder. TOTAL POINTS: If total points are 7-10, the proposed clinical action is to hospitalize or commit. Implement suicide precautions. Safety Checks: Personal items have been removed. Door is open. No visitors are present at this time. Patient uses Last use was 2 days ago. Patient uses cocaine, Last use was 5 days ago. Patient uses marijuana Last use was 2 days ago. Patient uses methamphetamines Last use was 9 hours ago. Patient uses tobacco Frequency daily. Vital Signs: 16:50 BP 136 / 91; Pulse 103; Resp 22 S; Pulse Ox 100% on R/A; Weight 83.91 kg (R); Height 6 jl7 ft. 1 in. (185.42 cm) (R); 16:54 Temp 98.3(O); jl7 20:07 BP 120 / 96; Pulse 84; Resp 16; Pulse Ox 99% on R/A; mt 12/24 00:23 BP 132 / 84; Pulse 90; Resp 16; Pulse Ox 99% on R/A; mt 05:57 BP 127 / 98; Pulse 89; Resp 16; Temp 97.1(O); Pulse Ox 100% on R/A; mt 07:30 BP 136 / 74; Pulse 76; Resp 18; Temp 98; Pulse Ox 98% ; Pain 0/10; sv 12:00 BP 130 / 77; Pulse 77; Resp 16; Pulse Ox 99% ; sv 16:39 BP 137 / 76; Pulse 84; Resp 18; Pulse Ox 100% ; Pain 0/10; ms 19:21 BP 124 / 84; Pulse 79; Resp 18; Pulse Ox 99% on R/A; mt 21:48 BP 132 / 90; Pulse 88; Resp 16; Pulse Ox 100% on R/A; mt 12/25 01:41 BP 133 / 87; Pulse 74; Resp 16; Pulse Ox 96% on R/A; mt 04:55 BP 115 / 91; Pulse 90; Resp 16; Temp 97.9; Pulse Ox 100% on R/A; ag4 07:20 BP 141 / 81; Pulse 65; Resp 18; Temp 96.8; Pulse Ox 100% ; ab1 07:35 BP 138 / 89; Pulse 68; Resp 17; Temp 98.3; Pulse Ox 99% on R/A; ab1 12:00 BP 124 / 61; Pulse 66; Resp 18; Temp 98.7; Pulse Ox 100% on R/A; ab1 16:00 BP 134 / 70; Pulse 64; Resp 18; Temp 97.4; Pulse Ox 97% on R/A; ab1 22:30 BP 117 / 92; Pulse 80; Resp 14 S; Temp 97.9(T); Pulse Ox 100% on R/A; cc3 12/26 02:26 BP 120 / 98; Pulse 80; Resp 14; Temp 98.4(T); Pulse Ox 100% on R/A; ag4 08:00 BP 121 / 87; Pulse 85; Resp 17; Pulse Ox 99% on R/A; Pain 0/10; rb1 12/23 16:50 Body Mass Index 24.41 (83.91 kg, 185.42 cm) [facility] ED Course: 12/23 16:25 Patient arrived in ED. tw2 16:26 William Romero MD is Attending Physician. [facility] 16:30 Safety checks: Items removed: yes. Door open/sign placed on door: yes. Family/friend mh5 present: no. Sitter present: Yes. 16:37 Camilo Card, MASSIMO is Primary Nurse. [facility] 16:43 Triage completed. [facility] 16:45 Safety checks: Items removed: yes. Door open/sign placed on door: yes. Family/friend mh5 present: no. Sitter present: Yes. 16:48 Patient has correct armband on for positive identification. Placed in gown. Bed in low mh5 position. Side rails up X 1. Pillow given. 16:50 Arm band placed on right wrist. [facility] 17:00 Safety checks: Items removed: yes. Door open/sign placed on door: yes. Family/friend mh5 present: no. Sitter present: Yes. 17:15 Safety checks: Items removed: yes. Door open/sign placed on door: yes. Family/friend jp3 present: no. Sitter present: Yes. 17:17 Inserted saline lock: 20 gauge in left forearm, using aseptic technique. pc1 17:18 EKG done, by donor support technician. reviewed by William Romero MD. 3 17:20 Initial lab(s) drawn, by ak, sent to lab. [facility] 17:30 Safety checks: Items removed: yes. Door open/sign placed on door: yes. Family/friend jp3 present: no. Sitter present: Yes. 17:45 Safety checks: Items removed: yes. Door open/sign placed on door: yes. Family/friend jp3 present: no. Sitter present: Yes. 18:00 Safety checks: Items removed: yes. Door open/sign placed on door: yes. Family/friend jp3 present: no. Sitter present: Yes. 18:15 Safety checks: Items removed: yes. Door open/sign placed on door: yes. Family/friend jp3 present: no. Sitter present: Yes. Warm blanket given. Diet tray given. 18:30 Safety checks: Items removed: yes. Door open/sign placed on door: yes. Family/friend jp3 present: no. Sitter present: Yes. 18:45 Safety checks: Items removed: yes. Door open/sign placed on door: yes. Family/friend jp3 present: no. Sitter present: Yes. 19:00 Safety checks: Items removed: yes. Door open/sign placed on door: yes. Family/friend mt present: no. Sitter present: Yes. 19:15 Safety checks: Items removed: yes. Door open/sign placed on door: yes. Family/friend mt present: no. Sitter present: Yes. 19:30 Safety checks: Items removed: yes. Door open/sign placed on door: yes. Family/friend mt present: no. Sitter present: Yes. 19:41 Attending Physician role handed off by William Romero MD rn 19:41 Nick Ocampo MD is Attending Physician. rn 19:45 Safety checks: Items removed: yes. Door open/sign placed on door: yes. Family/friend mt present: no. Sitter present: Yes. 20:00 Safety checks: Items removed: yes. Door open/sign placed on door: yes. Family/friend mt present: no. Sitter present: Yes. 20:15 Safety checks: Items removed: yes. Door open/sign placed on door: yes. Family/friend mt present: no. Sitter present: Yes. 20:30 Safety checks: Items removed: yes. Door open/sign placed on door: yes. Family/friend mt present: no. Sitter present: Yes. 20:45 Safety checks: Items removed: yes. Door open/sign placed on door: yes. Family/friend mt present: no. Sitter present: Yes. 21:00 Safety checks: Items removed: yes. Door open/sign placed on door: yes. Family/friend mt present: no. Sitter present: Yes. 21:15 Safety checks: Items removed: yes. Door open/sign placed on door: yes. Family/friend mt present: no. Sitter present: Yes. 21:30 Safety checks: Items removed: yes. Door open/sign placed on door: yes. Family/friend mt present: no. Sitter present: Yes. 21:45 Safety checks: Items removed: yes. Door open/sign placed on door: yes. Family/friend mt present: no. Sitter present: Yes. 22:00 Safety checks: Items removed: yes. Door open/sign placed on door: yes. Family/friend mt present: no. Sitter present: Yes. 22:15 Safety checks: Items removed: yes. Door open/sign placed on door: yes. Family/friend mt present: no. Sitter present: Yes. 22:30 Safety checks: Items removed: yes. Door open/sign placed on door: yes. Family/friend mt present: no. Sitter present: Yes. :45 Safety checks: Items removed: yes. Door open/sign placed on door: yes. Family/friend mt present: no. Sitter present: Yes. 23:00 Safety checks: Items removed: yes. Door open/sign placed on door: yes. Family/friend mt present: no. Sitter present: Yes. 23:15 Safety checks: Items removed: yes. Door open/sign placed on door: yes. Family/friend mt present: no. Sitter present: Yes. 23:30 Safety checks: Items removed: yes. Door open/sign placed on door: yes. Family/friend mt present: no. Sitter present: Yes. :45 Safety checks: Items removed: yes. Door open/sign placed on door: yes. Family/friend mt present: no. Sitter present: Yes. 12/24 00:00 Safety checks: Items removed: yes. Door open/sign placed on door: yes. Family/friend mt present: no. Sitter present: Yes. 00:15 Safety checks: Items removed: yes. Door open/sign placed on door: yes. Family/friend mt present: no. Sitter present: Yes. 00:30 Safety checks: Items removed: yes. Door open/sign placed on door: yes. Family/friend mt present: no. Sitter present: Yes. 00:45 Safety checks: Items removed: yes. Door open/sign placed on door: yes. Family/friend mt present: no. Sitter present: Yes. 01:00 Safety checks: Items removed: yes. Door open/sign placed on door: yes. Family/friend mt present: no. Sitter present: Yes. 01:15 Safety checks: Items removed: yes. Door open/sign placed on door: yes. Family/friend mt present: no. Sitter present: Yes. 01:30 Safety checks: Items removed: yes. Door open/sign placed on door: yes. Family/friend mt present: no. Sitter present: Yes. 01:45 Safety checks: Items removed: yes. Door open/sign placed on door: yes. Family/friend mt present: no. Sitter present: Yes. 02:00 Safety checks: Items removed: yes. Door open/sign placed on door: yes. Family/friend mt present: no. Sitter present: Yes. 02:15 Safety checks: Items removed: yes. Door open/sign placed on door: yes. Family/friend mt present: no. Sitter present: Yes. 02:30 Safety checks: Items removed: yes. Door open/sign placed on door: yes. Family/friend mt present: no. Sitter present: Yes. 02:45 Safety checks: Items removed: yes. Door open/sign placed on door: yes. Family/friend mt present: no. Sitter present: Yes. 03:00 Safety checks: Items removed: yes. Door open/sign placed on door: yes. Family/friend mt present: no. Sitter present: Yes. 03:15 Safety checks: Items removed: yes. Door open/sign placed on door: yes. Family/friend mt present: no. Sitter present: Yes. 03:30 Safety checks: Items removed: yes. Door open/sign placed on door: yes. Family/friend mt present: no. Sitter present: Yes. 03:45 Safety checks: Items removed: yes. Door open/sign placed on door: yes. Family/friend mt present: no. Sitter present: Yes. 04:00 Safety checks: Items removed: yes. Door open/sign placed on door: yes. Family/friend mt present: no. Sitter present: Yes. 04:15 Safety checks: Items removed: yes. Door open/sign placed on door: yes. Family/friend mt present: no. Sitter present: Yes. 04:30 Safety checks: Items removed: yes. Door open/sign placed on door: yes. Family/friend mt present: no. Sitter present: Yes. 04:45 Safety checks: Items removed: yes. Door open/sign placed on door: yes. Family/friend mt present: no. Sitter present: Yes. 05:00 Safety checks: Items removed: yes. Door open/sign placed on door: yes. Family/friend mt present: no. Sitter present: Yes. 05:15 Safety checks: Items removed: yes. Door open/sign placed on door: yes. Family/friend mt present: no. Sitter present: Yes. 05:30 Safety checks: Items removed: yes. Door open/sign placed on door: yes. Family/friend mt present: no. Sitter present: Yes. 05:45 Safety checks: Items removed: yes. Door open/sign placed on door: yes. Family/friend mt present: no. Sitter present: Yes. 06:00 Safety checks: Items removed: yes. Door open/sign placed on door: yes. Family/friend mt present: no. Sitter present: Yes. 06:15 Safety checks: Items removed: yes. Door open/sign placed on door: yes. Family/friend mt present: no. Sitter present: Yes. 06:30 Safety checks: Items removed: yes. Door open/sign placed on door: yes. Family/friend mt present: no. Sitter present: Yes. 06:58 Report given to Elli KEYS. sv 07:00 Safety checks: Items removed: yes. Door open/sign placed on door: yes. Family/friend em1 present: Other: [facility] mental health deputy present Sitter present: Yes. 07:02 Primary Nurse role handed off by Camilo Card RN 07:02 Char Malloy RN is Primary Nurse. sv 07:15 Safety checks: Items removed: yes. Door open/sign placed on door: yes. Family/friend em1 present: no. Sitter present: Yes. 07:30 Safety checks: Items removed: yes. Door open/sign placed on door: yes. Family/friend em1 present: no. Sitter present: Yes. 07:32 IV is patent, is intact. sv 07:45 Safety checks: Items removed: yes. Door open/sign placed on door: yes. Family/friend em1 present: no. Sitter present: Yes. 07:56 Attending Physician role handed off by Nick Ocampo MD [facility] 07:56 Davonte Hernandez MD is Attending Physician. [facility] 08:00 Safety checks: Items removed: yes. Door open/sign placed on door: yes. Family/friend em1 present: no. Sitter present: Yes. 08:03 faxed patient records to the following facilities in the attempt to transfer patient/ eb [facility]; [facility]; [facility]; [facility]; [facility]; [facility]; [facility] ; [facility]; [facility], [facility]; [facility], and [facility]. 08:15 Safety checks: Items removed: yes. Door open/sign placed on door: yes. Family/friend em1 present: no. Sitter present: Yes. 08:30 Safety checks: Items removed: yes. Door open/sign placed on door: yes. Family/friend em1 present: no. Sitter present: Yes. Diet tray given. 08:45 Safety checks: Items removed: yes. Door open/sign placed on door: yes. Family/friend em1 present: no. Sitter present: Yes. 09:00 Safety checks: Items removed: yes. Door open/sign placed on door: yes. Family/friend em1 present: no. Sitter present: Yes. 09:15 Safety checks: Items removed: yes. Door open/sign placed on door: yes. Family/friend em1 present: no. Sitter present: Yes. 09:30 Safety checks: Items removed: yes. Door open/sign placed on door: yes. Family/friend em1 present: no. Sitter present: Yes. 09:40 MADE CONTACT WITH SYLVIE FROM [facility] TO SEND OUT A SCREENER TO ACCESS \\T\\ [id number]. kj1 09:45 Safety checks: Items removed: yes. Door open/sign placed on door: yes. Family/friend em1 present: no. Sitter present: Yes. 10:00 Safety checks: Items removed: yes. Door open/sign placed on door: yes. Family/friend em1 present: no. Sitter present: Yes. 10:15 Safety checks: Items removed: yes. Door open/sign placed on door: yes. Family/friend em1 present: no. Sitter present: Yes. 10:30 Safety checks: Items removed: yes. Door open/sign placed on door: yes. Family/friend em1 present: no. Sitter present: Yes. 10:45 Safety checks: Items removed: yes. Door open/sign placed on door: yes. Family/friend em1 present: no. Sitter present: Yes. 11:00 Safety checks: Items removed: yes. Door open/sign placed on door: yes. Family/friend em1 present: no. Sitter present: Yes. 11:05 Trauma Team SCREENER ARRIVED TO ACCESS PT FOR TRANSFER \\T\\[id number]. kj1 11:15 Safety checks: Items removed: yes. Door open/sign placed on door: yes. Family/friend em1 present: Other: [place] Screener present Sitter present: Yes. 11:30 Safety checks: Items removed: yes. Door open/sign placed on door: yes. Family/friend em1 present: Other: [place] Screener present Sitter present: Yes. 11:45 Safety checks: Items removed: yes. Door open/sign placed on door: yes. Family/friend em1 present: Other: [place] screener present Sitter present: Yes. 12:00 Safety checks: Items removed: yes. Door open/sign placed on door: yes. Family/friend em1 present: no. Sitter present: Yes. 12:15 Safety checks: Items removed: yes. Door open/sign placed on door: yes. Family/friend em1 present: no. Sitter present: Yes. 12:30 Safety checks: Items removed: yes. Door open/sign placed on door: yes. Family/friend em1 present: no. Sitter present: Yes. Diet tray given. 12:45 Safety checks: Items removed: yes. Door open/sign placed on door: yes. Family/friend em1 present: no. Sitter present: Yes. 13:00 Safety checks: Items removed: yes. Door open/sign placed on door: yes. Family/friend em1 present: no. Sitter present: Yes. 13:15 Safety checks: Items removed: yes. Door open/sign placed on door: yes. Family/friend em1 present: no. Sitter present: Yes. 13:30 Safety checks: Items removed: yes. Door open/sign placed on door: yes. Family/friend em1 present: no. Sitter present: Yes. 13:45 Safety checks: Items removed: yes. Door open/sign placed on door: yes. Family/friend em1 present: no. Sitter present: Yes. 13:54 Safety checks:. ms 14:00 Safety checks: Items removed: Door open/sign placed on door: yes. Family/friend sv present: no. Sitter present: Yes. 14:15 Safety checks: Items removed: yes. Door open/sign placed on door: yes. Family/friend ms present: no. Sitter present: Yes. 14:30 Safety checks: Items removed: yes. Door open/sign placed on door: yes. Family/friend ms present: no. Sitter present: Yes. Diet tray given. 14:45 Safety checks: Items removed: yes. Door open/sign placed on door: yes. Family/friend ms present: no. Sitter present: Yes. 15:00 Safety checks: Items removed: yes. Door open/sign placed on door: yes. Family/friend ms present: no. Sitter present: Yes. 15:15 Safety checks: Items removed: yes. Door open/sign placed on door: yes. Family/friend ms present: no. Sitter present: Yes. 15:30 Safety checks: Items removed: yes. Door open/sign placed on door: yes. Family/friend ms present: no. Sitter present: Yes. 15:45 Safety checks: Items removed: yes. Door open/sign placed on door: yes. Family/friend ms present: no. Sitter present: Yes. 15:49 Diet: Patient given juice. ms 16:00 Safety checks: Items removed: yes. Door open/sign placed on door: yes. Family/friend ms present: no. Sitter present: Yes. 16:15 Safety checks: Items removed: yes. Door open/sign placed on door: yes. Family/friend ms present: no. Sitter present: Yes. 16:30 Safety checks: Items removed: yes. Door open/sign placed on door: yes. Family/friend ms present: no. Sitter present: Yes. Warm blanket given. 16:45 Safety checks: Items removed: yes. Door open/sign placed on door: yes. Family/friend ms present: no. Sitter present: Yes. 17:00 Safety checks: Items removed: yes. Door open/sign placed on door: yes. Family/friend ms present: no. Sitter present: Yes. 17:15 Safety checks: Items removed: yes. Door open/sign placed on door: yes. Family/friend ms present: no. Sitter present: Yes. 17:18 refaxed the patient chart including a patient exclusionary form to [facility] as requested. eb 17:30 Safety checks: Items removed: yes. Door open/sign placed on door: yes. Family/friend ms present: no. Sitter present: Yes. 17:45 Safety checks: Items removed: yes. Door open/sign placed on door: yes. Family/friend ms present: no. Sitter present: Yes. 18:00 Safety checks: Items removed: yes. Door open/sign placed on door: yes. Family/friend ms present: no. Sitter present: Yes. 18:15 Safety checks: Items removed: yes. Door open/sign placed on door: yes. Family/friend ms present: no. Sitter present: Yes. 18:15 Safety checks:. Diet tray given. ms 18:30 Safety checks: Items removed: yes. Door open/sign placed on door: yes. Family/friend ms present: no. Sitter present: Yes. 18:45 Safety checks: Items removed: yes. Door open/sign placed on door: yes. Family/friend ms present: no. Sitter present: Yes. 19:00 Safety checks: Items removed: yes. Door open/sign placed on door: yes. Family/friend ms present: no. Sitter present: Yes. 19:09 Primary Nurse role handed off by Char Malloy RN sv 19:09 Report given to Re KEYS. sv 19:15 Safety checks: Items removed: yes. Door open/sign placed on door: yes. Family/friend mt present: no. Sitter present: Yes. 19:30 Safety checks: Items removed: yes. Door open/sign placed on door: yes. Family/friend mt present: no. Sitter present: Yes. 19:45 Safety checks: Items removed: yes. Door open/sign placed on door: yes. Family/friend mt present: no. Sitter present: Yes. 20:00 Safety checks: Items removed: yes. Door open/sign placed on door: yes. Family/friend mt present: no. Sitter present: Yes. 20:15 Safety checks: Items removed: yes. Door open/sign placed on door: yes. Family/friend mt present: no. Sitter present: Yes. 20:30 Safety checks: Items removed: yes. Door open/sign placed on door: yes. Family/friend mt present: no. Sitter present: Yes. 20:45 Safety checks: Items removed: yes. Door open/sign placed on door: yes. Family/friend mt present: no. Sitter present: Yes. 21:00 Safety checks: Items removed: yes. Door open/sign placed on door: yes. Family/friend mt present: no. Sitter present: Yes. 21:15 Safety checks: Items removed: yes. Door open/sign placed on door: yes. Family/friend mt present: no. Sitter present: Yes. 21:30 Safety checks: Items removed: yes. Door open/sign placed on door: yes. Family/friend mt present: no. Sitter present: Yes. 21:45 Safety checks: Items removed: yes. Door open/sign placed on door: yes. Family/friend mt present: no. Sitter present: Yes. 22:00 Safety checks: Items removed: yes. Door open/sign placed on door: yes. Family/friend mt present: no. Sitter present: Yes. 22:15 Safety checks: Items removed: yes. Door open/sign placed on door: yes. Family/friend mt present: no. Sitter present: Yes. 22:30 Safety checks: Items removed: yes. Door open/sign placed on door: yes. Family/friend mt present: no. Sitter present: Yes. 22:45 Safety checks: Items removed: yes. Door open/sign placed on door: yes. Family/friend mt present: no. Sitter present: Yes. 23:00 Safety checks: Items removed: yes. Door open/sign placed on door: yes. Family/friend mt present: no. Sitter present: Yes. 23:15 Safety checks: Items removed: yes. Door open/sign placed on door: yes. Family/friend mt present: no. Sitter present: Yes. 23:30 Safety checks: Items removed: yes. Door open/sign placed on door: yes. Family/friend mt present: no. Sitter present: Yes. 23:45 Safety checks: Items removed: yes. Door open/sign placed on door: yes. Family/friend mt present: no. Sitter present: Yes. 12/25 00:00 Safety checks: Items removed: yes. Door open/sign placed on door: yes. Family/friend mt present: no. Sitter present: Yes. 00:15 Safety checks: Items removed: yes. Door open/sign placed on door: yes. Family/friend mt present: no. Sitter present: Yes. 00:30 Safety checks: Items removed: yes. Door open/sign placed on door: yes. Family/friend mt present: no. Sitter present: Yes. 00:45 Safety checks: Items removed: yes. Door open/sign placed on door: yes. Family/friend mt present: no. Sitter present: Yes. 01:00 Safety checks: Items removed: yes. Door open/sign placed on door: yes. Family/friend mt present: no. Sitter present: Yes. 01:15 Safety checks: Items removed: yes. Door open/sign placed on door: yes. Family/friend mt present: no. Sitter present: Yes. 01:30 Safety checks: Items removed: yes. Door open/sign placed on door: yes. Family/friend mt present: no. Sitter present: Yes. 01:45 Safety checks: Items removed: yes. Door open/sign placed on door: yes. Family/friend mt present: no. Sitter present: Yes. 02:00 Safety checks: Items removed: yes. Door open/sign placed on door: yes. Family/friend mt present: no. Sitter present: Yes. 02:15 Safety checks: Items removed: yes. Door open/sign placed on door: yes. Family/friend mt present: no. Sitter present: Yes. 06:28 Safety checks: Items removed: yes. Door open/sign placed on door: Patient placed in ag4 hallway bed. Family/friend present: no. Sitter present: Yes. 06:32 Safety checks: Items removed: yes. Door open/sign placed on door: Patient placed in ag4 hallway bed. Family/friend present: no. Sitter present: Yes. 06:45 Safety Checks: Personal items have been removed. The door is open or patient has been ab1 placed in a hallway bed/chair. There are no family/friend visitors at this time Sitter present at this time. 07:14 Safety Checks: Personal items have been removed. The door is open or patient has been ab1 placed in a hallway bed/chair. There are no family/friend visitors at this time Sitter present at this time. 07:37 Safety Checks: Personal items have been removed. The door is open or patient has been ab1 placed in a hallway bed/chair. There are no family/friend visitors at this time Sitter present at this time. 07:50 Safety Checks: Personal items have been removed. The door is open or patient has been ab1 placed in a hallway bed/chair. There are no family/friend visitors at this time Sitter present at this time. 08:05 Safety Checks: Personal items have been removed. The door is open or patient has been ab1 placed in a hallway bed/chair. There are no family/friend visitors at this time Sitter present at this time. 08:20 Safety Checks: Personal items have been removed. The door is open or patient has been ab1 placed in a hallway bed/chair. There are no family/friend visitors at this time Sitter present at this time. 08:35 Appears tearful. Appears upset. Safety Checks: Personal items have been removed. The ab1 door is open or patient has been placed in a hallway bed/chair. There are no family/friend visitors at this time Sitter present at this time. 08:41 Robert Bundy LVN is Primary Nurse. em 08:50 Safety Checks: Personal items have been removed. The door is open or patient has been ab1 placed in a hallway bed/chair. There are no family/friend visitors at this time Sitter present at this time. 09:05 Safety Checks: Personal items have been removed. The door is open or patient has been ab1 placed in a hallway bed/chair. There are no family/friend visitors at this time Sitter present at this time. 09:20 Safety Checks: Personal items have been removed. The door is open or patient has been ab1 placed in a hallway bed/chair. There are no family/friend visitors at this time Sitter present at this time. 09:37 Safety Checks: Personal items have been removed. The door is open or patient has been ab1 placed in a hallway bed/chair. There are no family/friend visitors at this time Sitter present at this time. 09:50 Safety Checks: Personal items have been removed. The door is open or patient has been ab1 placed in a hallway bed/chair. There are no family/friend visitors at this time Sitter present at this time. 10:05 Safety Checks: Personal items have been removed. The door is open or patient has been ab1 placed in a hallway bed/chair. There are no family/friend visitors at this time Sitter present at this time. 10:20 Safety Checks: Personal items have been removed. The door is open or patient has been ab1 placed in a hallway bed/chair. There are no family/friend visitors at this time Sitter present at this time. 10:35 Safety Checks: Personal items have been removed. The door is open or patient has been ab1 placed in a hallway bed/chair. There are no family/friend visitors at this time Sitter present at this time. 10:50 Safety Checks: Personal items have been removed. The door is open or patient has been ab1 placed in a hallway bed/chair. There are no family/friend visitors at this time Sitter present at this time. 11:05 Safety Checks: Personal items have been removed. The door is open or patient has been ab1 placed in a hallway bed/chair. There are no family/friend visitors at this time Sitter present at this time. 11:20 Safety Checks: Personal items have been removed. The door is open or patient has been ab1 placed in a hallway bed/chair. There are no family/friend visitors at this time Sitter present at this time. 11:35 Safety Checks: Personal items have been removed. The door is open or patient has been ab1 placed in a hallway bed/chair. There are no family/friend visitors at this time Sitter present at this time. 11:50 Safety Checks: Personal items have been removed. The door is open or patient has been ab1 placed in a hallway bed/chair. There are no family/friend visitors at this time Sitter present at this time. 12:05 Safety Checks: Personal items have been removed. The door is open or patient has been ab1 placed in a hallway bed/chair. There are no family/friend visitors at this time Sitter present at this time. 12:15 Safety checks: Items removed: yes. Door open/sign placed on door: yes. Family/friend dh3 present: no. Sitter present: Yes. 12:30 Safety checks: Items removed: yes. Door open/sign placed on door: yes. Family/friend dh3 present: no. Sitter present: Yes. 12:45 Safety Checks: Personal items have been removed. The door is open or patient has been ab1 placed in a hallway bed/chair. There are no family/friend visitors at this time Sitter present at this time. 13:00 No apparent distress. Safety Checks: Personal items have been removed. The door is open ab1 or patient has been placed in a hallway bed/chair. There are no family/friend visitors at this time Sitter present at this time. 13:15 Safety Checks: Personal items have been removed. The door is open or patient has been ab1 placed in a hallway bed/chair. There are no family/friend visitors at this time Sitter present at this time. 13:30 Safety Checks: Personal items have been removed. The door is open or patient has been ab1 placed in a hallway bed/chair. There are no family/friend visitors at this time Sitter present at this time. 13:45 Safety Checks: Personal items have been removed. The door is open or patient has been ab1 placed in a hallway bed/chair. There are no family/friend visitors at this time Sitter present at this time. 14:00 Safety Checks: Personal items have been removed. The door is open or patient has been ab1 placed in a hallway bed/chair. There are no family/friend visitors at this time Sitter present at this time. 14:15 Safety Checks: Personal items have been removed. The door is open or patient has been ab1 placed in a hallway bed/chair. There are no family/friend visitors at this time Sitter present at this time. 14:30 Safety Checks: Personal items have been removed. The door is open or patient has been ab1 placed in a hallway bed/chair. There are no family/friend visitors at this time Sitter present at this time. 14:45 Safety Checks: Personal items have been removed. The door is open or patient has been ab1 placed in a hallway bed/chair. There are no family/friend visitors at this time Sitter present at this time. 15:00 Safety Checks: Personal items have been removed. The door is open or patient has been ab1 placed in a hallway bed/chair. There are no family/friend visitors at this time Sitter present at this time. 15:15 No apparent distress. Resting quietly. Safety Checks: Personal items have been removed. ab1 The door is open or patient has been placed in a hallway bed/chair. There are no family/friend visitors at this time Sitter present at this time. 15:30 Resting quietly. Safety Checks: Personal items have been removed. The door is open or ab1 patient has been placed in a hallway bed/chair. There are no family/friend visitors at this time Sitter present at this time. 15:45 No apparent distress. Resting quietly. Safety Checks: Personal items have been removed. ab1 The door is open or patient has been placed in a hallway bed/chair. There are no family/friend visitors at this time Sitter present at this time. 16:00 Safety Checks: Personal items have been removed. The door is open or patient has been ab1 placed in a hallway bed/chair. There are no family/friend visitors at this time Sitter present at this time. 16:15 Safety Checks: Personal items have been removed. The door is open or patient has been ab1 placed in a hallway bed/chair. There are no family/friend visitors at this time Sitter present at this time. 16:30 Safety Checks: Personal items have been removed. The door is open or patient has been ab1 placed in a hallway bed/chair. There are no family/friend visitors at this time Sitter present at this time. 16:45 Safety Checks: Personal items have been removed. The door is open or patient has been ab1 placed in a hallway bed/chair. There are no family/friend visitors at this time Sitter present at this time. 17:00 Safety Checks: Personal items have been removed. The door is open or patient has been ab1 placed in a hallway bed/chair. There are no family/friend visitors at this time Sitter present at this time. 17:15 Safety Checks: Personal items have been removed. The door is open or patient has been ab1 placed in a hallway bed/chair. There are no family/friend visitors at this time Sitter present at this time. 17:30 Safety Checks: Personal items have been removed. The door is open or patient has been ab1 placed in a hallway bed/chair. There are no family/friend visitors at this time Sitter present at this time. 17:45 Safety Checks: Personal items have been removed. The door is open or patient has been ab1 placed in a hallway bed/chair. There are no family/friend visitors at this time Sitter present at this time. 18:00 Safety Checks: Personal items have been removed. The door is open or patient has been ab1 placed in a hallway bed/chair. There are no family/friend visitors at this time Sitter present at this time. 18:15 Safety Checks: Personal items have been removed. The door is open or patient has been ab1 placed in a hallway bed/chair. There are no family/friend visitors at this time Sitter present at this time. 18:30 Safety Checks: Personal items have been removed. The door is open or patient has been ab1 placed in a hallway bed/chair. There are no family/friend visitors at this time Sitter present at this time. 18:45 Safety Checks: Personal items have been removed. The door is open or patient has been ab1 placed in a hallway bed/chair. There are no family/friend visitors at this time Sitter present at this time. 19:00 Safety Checks: Personal items have been removed. The door is open or patient has been ab1 placed in a hallway bed/chair. There are no family/friend visitors at this time Sitter present at this time. 19:34 Safety checks: Items removed: yes. Door open/sign placed on door: Patient placed in ag4 hallway bed. Family/friend present: no. Sitter present: Yes. 19:51 Safety checks: Items removed: yes. Door open/sign placed on door: Patient placed in ag4 hallway bed. Family/friend present: no. Sitter present: Yes. 20:09 Safety checks: Items removed: yes. Door open/sign placed on door: Patient placed in ag4 hallway bed. Family/friend present: no. Sitter present: Yes. 20:26 Safety checks: Items removed: yes. Door open/sign placed on door: Patient placed in ag4 hallway bed. Family/friend present: no. Sitter present: Yes. 21:22 Safety checks: Items removed: yes. Door open/sign placed on door: Patient placed in ag4 hallway bed. Family/friend present: no. Sitter present: Yes. 22:27 Safety checks: Items removed: yes. Door open/sign placed on door: Patient placed in ag4 hallway bed. Family/friend present: no. Sitter present: Yes. 23:00 Safety checks: Items removed: yes. Door open/sign placed on door: Patient placed in ag4 hallway bed. Family/friend present: no. Sitter present: Yes. 12/26 00:00 Report given to MASSIMO Phelps. cc3 00:08 Safety checks: Items removed: yes. Door open/sign placed on door: Patient placed in ag4 hallway bed. Family/friend present: no. Sitter present: Yes. 00:40 Safety checks: Items removed: yes. Door open/sign placed on door: Patient placed in ag4 hallway bed. Family/friend present: no. Sitter present: Yes. 01:04 Safety checks: Items removed: yes. Door open/sign placed on door: Patient placed in ag4 hallway bed. Family/friend present: no. Sitter present: Yes. 01:17 Safety checks: Items removed: yes. Door open/sign placed on door: Patient placed in ag4 hallway bed. Family/friend present: no. Sitter present: Yes. 01:25 Safety checks: Items removed: yes. Door open/sign placed on door: Patient placed in ag4 hallway bed. Family/friend present: no. Sitter present: Yes. 01:51 Safety checks: Items removed: yes. Door open/sign placed on door: Patient placed in ag4 hallway bed. Family/friend present: no. Sitter present: Yes. 04:28 Safety checks: Items removed: yes. Door open/sign placed on door: Patient placed in ag4 hallway bed. Family/friend present: no. Sitter present: Yes. 05:01 Safety checks: Items removed: yes. Door open/sign placed on door: Patient placed in ag4 hallway bed. Family/friend present: no. Sitter present: Yes. 05:27 Safety checks: Items removed: yes. Door open/sign placed on door: Patient placed in ag4 hallway bed. Family/friend present: no. Sitter present: Yes. 05:55 Safety checks: Items removed: yes. Door open/sign placed on door: Patient placed in ag4 hallway bed. Family/friend present: no. Sitter present: Yes. 06:30 Safety checks: Items removed: yes. Door open/sign placed on door: Patient placed in ag4 hallway bed. Family/friend present: no. Sitter present: Yes. 06:45 Safety checks: Items removed: yes. Door open/sign placed on door: yes. Family/friend em1 present: no. Sitter present: Yes. 07:00 Safety checks: Items removed: yes. Door open/sign placed on door: yes. Family/friend em1 present: no. Sitter present: Yes. 07:15 Safety checks: Items removed: yes. Door open/sign placed on door: yes. Family/friend em1 present: no. Sitter present: Yes. 07:30 Safety checks: Items removed: yes. Door open/sign placed on door: yes. Family/friend em1 present: no. Sitter present: Yes. 07:45 Safety checks: Items removed: yes. Door open/sign placed on door: yes. Family/friend em1 present: no. Sitter present: Yes. 08:00 Safety Checks: Personal items have been removed. The door is open or patient has been rb1 placed in a hallway bed/chair. There are no family/friend visitors at this time Sitter present at this time. 08:15 Safety Checks: Personal items have been removed. The door is open or patient has been rb1 placed in a hallway bed/chair. There are no family/friend visitors at this time Sitter present at this time. 08:30 Safety Checks: Personal items have been removed. The door is open or patient has been rb1 placed in a hallway bed/chair. There are no family/friend visitors at this time Sitter present at this time. 08:45 Safety Checks: Personal items have been removed. The door is open or patient has been rb1 placed in a hallway bed/chair. There are no family/friend visitors at this time Sitter present at this time. 08:45 No provider procedures requiring assistance completed. IV discontinued, intact, rb1 bleeding controlled, No redness/swelling at site. Pressure dressing applied. Administered Medications: 12/23 16:50 Drug: Geodon 20 mg Route: IM; Site: left deltoid; jl7 17:45 Follow up: Response: No adverse reaction; Marked relief of symptoms jl7 12/25 09:37 Drug: HALdol (as decanoate) 10 mg Route: IM; Site: right gluteus; ss 10:31 Follow up: Response: No adverse reaction; Marked relief of symptoms em 09:37 Drug: Ativan 2 mg Route: IM; Site: right deltoid; em 10:30 Follow up: Response: No adverse reaction; Marked relief of symptoms em 13:00 Drug: Potassium Effervescent Tablet 50 mEq Route: PO; em 14:23 Follow up: Response: No adverse reaction em Intake: 12/24 08:30 PO: 480ml; Total: 480ml. sv 13:00 PO: 600ml (Water); Total: 1080ml. sv 18:00 PO: 550ml (Water); Total: 1630ml. sv 12/25 18:05 PO: 720ml; IV: 10ml; Total: 2360ml. ab1 Output: 12/24 08:30 Urine: 300ml (Voided); Total: 300ml. sv 21:48 Urine: 500ml; Total: 800ml. mt 12/25 18:05 Urine: 600ml; Stool: 1; Total: 1400ml. ab1 Outcome: 12/24 07:58 ER care complete, transfer ordered by . allen 12/26 08:01 Discharge ordered by . allen 08:45 Patient left the ED. tw2 08:45 Discharged to home ambulatory. rb1 08:45 Condition: stable 08:45 Discharge instructions given to patient, Instructed on discharge instructions, follow up and referral plans. Demonstrated understanding of instructions, follow-up care, Prescriptions given X none Signatures: Char Malloy RN RN sv Autenrieth, Alissa, RN RN aa1 Davonte Hernandez MD MD cha Rittger, Kevin, MD MD kdr Munoz, Edgar, AUTO DISMANTLER AUTO DISMANTLER Orquidea Long ms, Roman, MD MD rn Martinez, Eric em1 Simran Quiros RN RN ss Maria Esther Boyd RN RN rb1 Karissa Mcdonald RN RN tw2 Elli Ritchie RN RN tl2 Chris Lao RN RN jb4 Orquidea Dixon 5 Camilo Card RN RN jl7 Chloé Mcgrath mt, Ashley 3 Gladys Arita Shakira 3 Cash Pop jp3 Patrizia Queen cc3 Chapin, Niranjan ag4 Sue, Raul pc1 Juan Luis, Hope kj1 Lon, Felicity ab1 Corrections: (The following items were deleted from the chart) 12/24 07:39 06:59 Safety checks: Items removed: yes. Door open/sign placed on door: yes. em1 Family/friend present: Other: [facility] mental health deputy present Sitter present: Yes. em1 07:39 07:20 Safety checks: Items removed: yes. Door open/sign placed on door: yes. em1 Family/friend present: no. Sitter present: Yes. em1 09:47 09:46 Safety checks: Items removed: yes. Door open/sign placed on door: yes. em1 Family/friend present: no. Sitter present: Yes. em1 10:52 10:40 Safety checks: Items removed: yes. Door open/sign placed on door: yes. em1 Family/friend present: no. Sitter present: Yes. em1 11:20 11:19 Safety checks: Items removed: yes. Door open/sign placed on door: yes. em1 Family/friend present: Other: [place] Screener present Sitter present: Yes. em1 11:33 11:32 Safety checks: Items removed: yes. Door open/sign placed on door: yes. em1 Family/friend present: Other: [place] Screener present Sitter present: Yes. em1 12:02 11:44 Safety checks: Items removed: yes. Door open/sign placed on door: yes. em1 Family/friend present: Other: [place] screener present Sitter present: Yes. em1 12:26 12:02 Safety checks: Items removed: yes. Door open/sign placed on door: yes. em1 Family/friend present: no. Sitter present: Yes. em1 15:50 15:49 Safety checks: Items removed: yes. Door open/sign placed on door: yes. ms Family/friend present: no. Sitter present: Yes. ms 18:27 13:54 Safety checks: Items removed: Door open/sign placed on door: yes. Family/friend sv present: no. Sitter present: Yes. ms 12/25 06:55 06:53 BP 115 / 91; Pulse 90bpm; Resp 16bpm; Pulse Ox 100% RA; Temp 97.9F; ab1 ab1 06:57 04:55 BP 115 / 91; Pulse 90bpm; Resp 16bpm; Pulse Ox 100% RA; Temp 97.9F; ab1 ag4 17:31 16:15 Safety Checks: Personal items have been removed. The door is open or patient has ab1 been placed in a hallway bed/chair. There are no family/friend visitors at this time Sitter present at this time. ab1 12/26 07:35 07:34 Safety checks: Items removed: yes. Door open/sign placed on door: yes. em1 Family/friend present: no. Sitter present: Yes. em1
[2018-12-25] MEDS ORDERED: HALOPERIDOL LACT 5 MG/ML INJ ONE (09:42)
[2018-12-25] MEDS ORDERED: LORazepam 2 MG/ML VIAL ONE (09:42)
[2018-12-25] MEDS ORDERED: POTASSIUM 25 MEQ EFFERV TAB ONE (10:56)
[2018-12-26 09:12] VITALS: O2SAT 100
[2018-12-26 09:13] VITALS: BP 120/98; TEMP 98.4
== END 2018-12-26 08:45 | disposition home or self-care (01) ==
LOC: ER 16:24
DX: F31.9 Bipolar disorder, unspecified (principal); F10.129 Alcohol abuse with intoxication, unspecified; F14.10 Cocaine abuse, uncomplicated; F55.8 Abuse of other non-psychoactive substances; T43.625A Adverse effect of amphetamines, initial encounter
CPT/HCPCS: 36415; 80048; 80076; 80307; 80320; 80329; 81003; 85025; 85610; 85730; 93005; 96372; 99285; J1630; J3486

== ENCOUNTER 2019-05-05 18:17 | Emergency (ER) | payer SELFPAY ==
[2019-05-05 19:54] LABS: Urine Blood NEGATIVE (NEG); Urine Glucose NEGATIVE (NEG); Urine Protein 1+ (NEG); Urine Specific Gravity >1.030 (1.005-1.030)
[2019-05-05 20:42] LABS: Absolute Lymphocytes (CBC) 1.8 K/uL (0.7-4.9); Basophils % 0.3 % (0-1.3); Hematocrit 43.9 % (39.6-49.0); Lymphocytes % 20.7 % (15.3-44.8); MPV 7.6 fL (7.6-11.3); RBC Red Blood Cell Count 4.62 M/uL (4.33-5.43)
[2019-05-05 20:43] LABS: Protime INR 0.97
[2019-05-05 20:58] LABS: Barbiturates NEGATIVE (NEGATIVE); Benzodiazepines NEGATIVE (NEGATIVE); Cocaine POSITIVE (NEGATIVE); METHAMPHETAM POSITIVE (NEGATIVE); Methadone NEGATIVE (NEGATIVE); Opiates NEGATIVE (NEGATIVE); Phencyclidine NEGATIVE (NEGATIVE); THC Cannibis POSITIVE (NEGATIVE)
[2019-05-05 21:07] LABS: ALT/SGPT 23 U/L (12-78); AST/SGOT 16 U/L (15-37); Albumin 4.4 g/dL (3.4-5.0); Alkaline Phosphatase 76 U/L (45-117); BUN Blood Urea Nitrogen 9 mg/dL (7-18); Bicarbonate 29 mmol/L (21-32); Bilirubin Direct 0.2 mg/dL (0-0.2); Bilirubin Total 1.1 mg/dL (0.2-1.0); Glucose Level 105 mg/dL (74-106); Potassium 3.9 mmol/L (3.5-5.1); Protein, Total 8.2 g/dL (6.4-8.2); Sodium Level 140 mmol/L (136-145)
--- NOTE | 2019-05-06 03:15 | ER ---
Nurse's Notes [facility] Name: Tanner Lopes Age: 38 yrs Sex: Male : 1980 Arrival Date: 05/05/2019 Time: 18:18 Bed 17 Private MD: Unknown, Unknown Diagnosis: Suicidal ideation;polysubstance abuse Presentation: 05/05 18:28 Presenting complaint: Patient states: "I've been having a bad panic attack for a few aa5 days and I also relapsed again so I've been doing meth". Pt states "My nerves are just bad and I just started cutting myself again". Superficial lacerations noted to left FA. Transition of care: patient was not received from another setting of care. Onset of symptoms was April 2019. Risk Assessment: Do you want to hurt yourself or someone else? Patient reports desire/thoughts of hurting themselves or someone else. Provider notified. Initial Sepsis Screen: Does the patient meet any 2 criteria? No. Patient's initial sepsis screen is negative. Does the patient have a suspected source of infection? No. Patient's initial sepsis screen is negative. Care prior to arrival: None. 18:28 Method Of Arrival: Ambulatory aa5 18:28 Acuity: RADHA 2 aa5 Historical: - Allergies: 18:31 No Known Allergies; aa5 - Home Meds: 18:31 None [Active]; aa5 - PMHx: 18:31 Anxiety; Bipolar disorder; Depression; Schizophrenia; aa5 - PSHx: 18:31 None; aa5 - Immunization history:: Adult Immunizations unknown. - Social history:: Smoking status: Patient uses tobacco products, smokes one pack cigarettes per day. Patient uses alcohol, on a daily basis. claims drinking about a 6 pack/day. street drugs, cocaine, Methamphetamine (Meth). - Ebola Screening: : No symptoms or risks identified at this time. - Family history:: not pertinent. - Hospitalizations: : No recent hospitalization is reported. Screenin:05 Abuse screen: Denies threats or abuse. Denies injuries from another. Nutritional tr5 screening: No deficits noted. Tuberculosis screening: No symptoms or risk factors identified. Fall Risk None identified. Assessment: 19:00 Reassessment: Patient appears in no apparent distress at this time. Patient and/or ch family updated on plan of care and expected duration. Pain level reassessed. pt reports wanting to harm himself and wanting to harm the people who gave him meth. 19:00 Pain: Denies pain. ch 19:05 General: Appears in no apparent distress. comfortable, Behavior is calm, cooperative, tr5 appropriate for age. Pain: Denies pain. Neuro: Level of Consciousness is awake, alert, obeys commands, Oriented to person, place, time, situation, Moves all extremities. Full function Speech is normal. Cardiovascular: Denies chest pain, palpitations, shortness of breath. Respiratory: Airway is patent Respiratory effort is even, unlabored, Respiratory pattern is regular, symmetrical. GI: No signs and/or symptoms were reported involving the gastrointestinal system. : No signs and/or symptoms were reported regarding the genitourinary system. EENT: No signs and/or symptoms were reported regarding the EENT system. Derm: Skin is intact, is healthy with good turgor, Skin is pink, warm \\T\\ dry. Musculoskeletal: Circulation, motion, and sensation intact. Capillary refill < 3 seconds. 19:52 Reassessment: Patient appears in no apparent distress at this time. Patient and/or tr5 family updated on plan of care and expected duration. Pain level reassessed. Patient is alert, oriented x 3, equal unlabored respirations, skin warm/dry/pink. Pt awaiting lab results for mental health evaluation. 21:00 Reassessment: Patient appears in no apparent distress at this time. Patient and/or jv1 family updated on plan of care and expected duration. Pain level reassessed. Patient is alert, oriented x 3, equal unlabored respirations, skin warm/dry/pink. pts awaiting lab results for evaluation Patient denies pain at this time. Patient states feeling better. [facility] mental health supervisor joiners at bedside.. 22:00 Reassessment: Patient appears in no apparent distress at this time. Patient and/or jv1 family updated on plan of care and expected duration. Pain level reassessed. Patient is alert, oriented x 3, equal unlabored respirations, skin warm/dry/pink. pt eating as of the moment. Patient denies pain at this time. Patient states feeling better. 23:00 General: Behavior is calm, cooperative. Pain: Denies pain. Respiratory: Airway jv1 Respiratory effort is even, unlabored, Respiratory pattern is regular. GI: No signs and/or symptoms were reported involving the gastrointestinal system. EENT: No signs and/or symptoms were reported regarding the EENT system. Derm: Skin is intact, is healthy with good turgor, Skin is pink, warm \\T\\ dry. Musculoskeletal: Circulation, motion, and sensation intact. Capillary refill < 3 seconds. 05/06 00:00 Reassessment: Patient appears in no apparent distress at this time. Patient and/or jv1 family updated on plan of care and expected duration. Pain level reassessed. Patient is alert, oriented x 3, equal unlabored respirations, skin warm/dry/pink. Patient denies pain at this time. Patient states feeling better. General: Appears in no apparent distress. comfortable, Behavior is calm, cooperative, appropriate for age. Pain: Denies pain. Neuro: Level of Consciousness is awake, alert, obeys commands, Oriented to person, place, time, situation, Moves all extremities. Full function Speech is normal. Cardiovascular: Denies chest pain, palpitations, shortness of breath. Respiratory: Respiratory effort is even, unlabored, Respiratory pattern is regular. GI: No signs and/or symptoms were reported involving the gastrointestinal system. : No signs and/or symptoms were reported regarding the genitourinary system. EENT: No signs and/or symptoms were reported regarding the EENT system. Derm: Skin is intact, is healthy with good turgor. Musculoskeletal: Circulation, motion, and sensation intact. Capillary refill < 3 seconds. 01:00 Reassessment: Patient appears in no apparent distress at this time. Patient and/or jv1 family updated on plan of care and expected duration. Pain level reassessed. Patient is alert, oriented x 3, equal unlabored respirations, skin warm/dry/pink. Patient denies pain at this time. General: Appears in no apparent distress. comfortable, Behavior is calm, cooperative, appropriate for age. Pain: Denies pain. Neuro: Level of Consciousness is awake, alert, obeys commands, Oriented to person, place, time, situation. Cardiovascular: Denies chest pain, palpitations, shortness of breath. Respiratory: Respiratory effort is even, unlabored, Respiratory pattern is regular, symmetrical. GI: No signs and/or symptoms were reported involving the gastrointestinal system. : No signs and/or symptoms were reported regarding the genitourinary system. EENT: No signs and/or symptoms were reported regarding the EENT system. Derm: Skin is intact, is healthy with good turgor, Skin is pink, warm \\T\\ dry. Musculoskeletal: Circulation, motion, and sensation intact. Capillary refill < 3 seconds. 02:00 Reassessment: Patient appears in no apparent distress at this time. Patient and/or jv1 family updated on plan of care and expected duration. Pain level reassessed. Patient is alert, oriented x 3, equal unlabored respirations, skin warm/dry/pink. 03:00 Reassessment: Patient appears in no apparent distress at this time. Patient and/or jv1 family updated on plan of care and expected duration. Pain level reassessed. Patient is alert, oriented x 3, equal unlabored respirations, skin warm/dry/pink. Patient denies pain at this time. General: Appears in no apparent distress. comfortable, Behavior is calm, cooperative, appropriate for age. Pain: Denies pain. Neuro: Level of Consciousness is awake, alert, obeys commands, Oriented to person, place, time, situation, Moves all extremities. Full function Speech is normal. Cardiovascular: Denies chest pain, palpitations, shortness of breath. Respiratory: Airway is patent Respiratory effort is even, unlabored, Respiratory pattern is regular, symmetrical. 04:12 Reassessment: Patient appears in no apparent distress at this time. Patient and/or jv1 family updated on plan of care and expected duration. Pain level reassessed. Patient is alert, oriented x 3, equal unlabored respirations, skin warm/dry/pink. Patient denies pain at this time. Patient states feeling better. General: Appears in no apparent distress. comfortable, Behavior is calm, cooperative, appropriate for age. Pain: Denies pain. Neuro: Level of Consciousness is awake, alert, obeys commands, Oriented to person, place, time, situation, Moves all extremities. Full function Speech is normal. Cardiovascular: Denies chest pain, palpitations, shortness of breath. Respiratory: Airway is patent Respiratory effort is even, unlabored, Respiratory pattern is regular, symmetrical. GI: No signs and/or symptoms were reported involving the gastrointestinal system. : No signs and/or symptoms were reported regarding the genitourinary system. EENT: No signs and/or symptoms were reported regarding the EENT system. Derm: Skin is intact, is healthy with good turgor, Skin is pink, warm \\T\\ dry. normal. Musculoskeletal: Circulation, motion, and sensation intact. Capillary refill < 3 seconds. 04:16 Reassessment: EMS arrived, placed pt on the stretcher to be transferred to [place] [id number] hosp. . Vital Signs: 05/05 18:32 BP 136 / 85; Pulse 84; Resp 18 S; Temp 98.5(O); Pulse Ox 100% on R/A; Weight 90.72 kg aa5 (R); Height 6 ft. 1 in. (185.42 cm) (R); Pain 0/10; 20:00 BP 137 / 87; Pulse 79; Resp 18 S; Temp 98.6(O); Pulse Ox 100% on R/A; Pain 0/10; jv1 05/06 00:00 BP 124 / 79; Pulse 68; Resp 18 S; Temp 98.5(O); Pulse Ox 100% on R/A; Pain 0/10; jv1 04:00 BP 125 / 80 Supine; Pulse 69; Resp 18 S; Temp 98.5; Pulse Ox 100% on R/A; Pain 0/10; jv1 05/05 18:32 Body Mass Index 26.39 (90.72 kg, 185.42 cm) aa5 ED Course: 05/05 18:18 Patient arrived in ED. ag5 18:18 Unknown, Unknown is Private Physician. ag5 18:30 Triage completed. aa5 18:30 Arm band placed on. aa5 18:59 Helio Hernández, RN is Primary Nurse. tr5 19:00 Safety Checks: Personal items have been removed. The door is open or patient has been jv1 placed in a hallway bed/chair. Sitter present at this time. 19:05 Patient has correct armband on for positive identification. Placed in gown. Bed in low tr5 position. 19:15 Safety Checks: Personal items have been removed. The door is open or patient has been jv1 placed in a hallway bed/chair. Sitter present at this time. 19:26 Josue Schwarz MD is Attending Physician. ia 19:30 Safety Checks: Personal items have been removed. The door is open or patient has been jv1 placed in a hallway bed/chair. Sitter present at this time. 19:45 Safety Checks: Personal items have been removed. The door is open or patient has been jv1 placed in a hallway bed/chair. Sitter present at this time. 20:00 Safety Checks: Personal items have been removed. The door is open or patient has been jv1 placed in a hallway bed/chair. Sitter present at this time. 20:15 Safety Checks: Personal items have been removed. The door is open or patient has been jv1 placed in a hallway bed/chair. Sitter present at this time. 20:30 Safety Checks: Personal items have been removed. The door is open or patient has been jv1 placed in a hallway bed/chair. Sitter present at this time. 20:45 Safety Checks: Personal items have been removed. The door is open or patient has been jv1 placed in a hallway bed/chair. Sitter present at this time. 21:00 Safety Checks: Personal items have been removed. The door is open or patient has been jv1 placed in a hallway bed/chair. Sitter present at this time. [facility] supervisor joiners at bedside. 21:15 Safety Checks: Personal items have been removed. The door is open or patient has been jv1 placed in a hallway bed/chair. Sitter present at this time. [facility] supervisor joiners at bedside. 21:30 Safety Checks: Personal items have been removed. The door is open or patient has been jv1 placed in a hallway bed/chair. Sitter present at this time. [facility] supervisor joiners still at bedside. 21:45 Safety Checks: Personal items have been removed. The door is open or patient has been jv1 placed in a hallway bed/chair. Sitter present at this time. pt eating some crackers and drinking some juice. 22:00 Safety Checks: Personal items have been removed. The door is open or patient has been jv1 placed in a hallway bed/chair. Sitter present at this time. 22:15 Safety Checks: Personal items have been removed. The door is open or patient has been jv1 placed in a hallway bed/chair. Sitter present at this time. pt asleep,respirations even and unlabored. 22:30 Safety Checks: Personal items have been removed. The door is open or patient has been jv1 placed in a hallway bed/chair. Sitter present at this time. 22:45 Safety Checks: Personal items have been removed. The door is open or patient has been jv1 placed in a hallway bed/chair. Sitter present at this time. 23:00 Safety Checks: Personal items have been removed. The door is open or patient has been jv1 placed in a hallway bed/chair. Sitter present at this time. 23:15 Safety Checks: Personal items have been removed. The door is open or patient has been jv1 placed in a hallway bed/chair. Sitter present at this time. 23:30 Safety Checks: Personal items have been removed. The door is open or patient has been jv1 placed in a hallway bed/chair. Sitter present at this time. pt asleep comfortably ,resp even and unlabored. 23:45 Safety Checks: Personal items have been removed. The door is open or patient has been jv1 placed in a hallway bed/chair. Sitter present at this time. 05/06 00:00 Safety Checks: Personal items have been removed. The door is open or patient has been jv1 placed in a hallway bed/chair. Sitter present at this time. pt asleep comfortably, resp even and unlabored. 00:15 Safety Checks: Personal items have been removed. The door is open or patient has been jv1 placed in a hallway bed/chair. Sitter present at this time. 00:30 Safety Checks: Personal items have been removed. The door is open or patient has been jv1 placed in a hallway bed/chair. Sitter present at this time. pt eating some snacks. 00:45 Safety Checks: Personal items have been removed. The door is open or patient has been jv1 placed in a hallway bed/chair. Sitter present at this time. pt asleep comfortably,resp even and unlabored. 01:00 Safety Checks: Personal items have been removed. The door is open or patient has been jv1 placed in a hallway bed/chair. Sitter present at this time. 01:15 Safety Checks: Personal items have been removed. The door is open or patient has been jv1 placed in a hallway bed/chair. Sitter present at this time. 01:30 Safety Checks: Personal items have been removed. The door is open or patient has been jv1 placed in a hallway bed/chair. Sitter present at this time. 01:45 Safety Checks: Personal items have been removed. The door is open or patient has been jv1 placed in a hallway bed/chair. Sitter present at this time. 02:00 Safety Checks: Personal items have been removed. The door is open or patient has been jv1 placed in a hallway bed/chair. Sitter present at this time. 02:15 Safety Checks: Personal items have been removed. The door is open or patient has been jv1 placed in a hallway bed/chair. Sitter present at this time. 02:30 Safety Checks: Personal items have been removed. The door is open or patient has been jv1 placed in a hallway bed/chair. Sitter present at this time. 02:45 Safety Checks: Personal items have been removed. The door is open or patient has been jv1 placed in a hallway bed/chair. Sitter present at this time. 03:00 Safety Checks: Personal items have been removed. The door is open or patient has been jv1 placed in a hallway bed/chair. Sitter present at this time. 03:15 Safety Checks: Personal items have been removed. The door is open or patient has been jv1 placed in a hallway bed/chair. Sitter present at this time. 03:15 Ms. Helio Hernández RN gave report to of [facility]. jv1 03:30 Safety Checks: Personal items have been removed. The door is open or patient has been jv1 placed in a hallway bed/chair. Sitter present at this time. 03:45 Safety Checks: Personal items have been removed. The door is open or patient has been jv1 placed in a hallway bed/chair. Sitter present at this time. 04:00 Safety Checks: Personal items have been removed. The door is open or patient has been jv1 placed in a hallway bed/chair. Sitter present at this time. 04:10 Report given to Ms. Helio Hernández RN gave report to [facility]. jv1 04:10 No provider procedures requiring assistance completed. IV discontinued. tr5 04:15 Safety Checks: Personal items have been removed. The door is open or patient has been jv1 placed in a hallway bed/chair. Sitter present at this time. EMS arrived to transfer pt to [facility]. 04:21 EMS took patient for transfer to [facility]. jv1 Administered Medications: No medications were administered Outcome: 03:13 ER care complete, transfer ordered by . dale 04:10 Transferred by ground EMS to [facility], Transfer form completed. X-rays tr5 sent w/ patient. 04:10 Condition: stable 04:10 Instructed on the need for transfer. 04:12 Patient left the ED. tr5 Signatures: Maribell Crane, Sangita Layton RN, ch, RN RN aa5 Josue Schwarz MD MD wa Vicente, Joyce, RN RN jv1 Kimberly Spencer Tommie RN RN tr5 Corrections: (The following items were deleted from the chart) 05/05 20:31 20:24 Reassessment: Patient appears in no apparent distress at this time. jv1 jv1 20:31 20:24 General: Appears in no apparent distress. comfortable, jv1 jv1 20:59 20:00 BP 137 / 87; Pulse 79bpm; Resp 18bpm; Spontaneous; Pulse Ox 100% RA; Temp 98.6F jv1 Oral; jv1 21:02 20:53 Reassessment: Patient appears in no apparent distress at this time. Patient jv1 and/or family updated on plan of care and expected duration. Pain level reassessed. Patient is alert, oriented x 3, equal unlabored respirations, skin warm/dry/pink. pts awaiting lab results for evaluation Patient denies pain at this time. Patient states feeling better. jv1 21:37 21:00 Safety Checks: Personal items have been removed. The door is open or patient has jv1 been placed in a hallway bed/chair. Sitter present at this time. [facility] supervisor joiners at bedside jv1 21:37 21:15 Safety Checks: Personal items have been removed. The door is open or patient has jv1 been placed in a hallway bed/chair. Sitter present at this time. jv1 21:38 21:15 Safety Checks: Personal items have been removed. The door is open or patient has jv1 been placed in a hallway bed/chair. Sitter present at this time. jv1 05/06 00:42 00:30 Safety Checks: Personal items have been removed. The door is open or patient has jv1 been placed in a hallway bed/chair. Sitter present at this time. jv1 00:01 Reassessment: Patient appears in no apparent distress at this time. Patient jv1 and/or family updated on plan of care and expected duration. Pain level reassessed. Patient is alert, oriented x 3, equal unlabored respirations, skin warm/dry/pink. Patient denies pain at this time. jv1 00:00 Reassessment: Patient appears in no apparent distress at this time. Patient jv1 and/or family updated on plan of care and expected duration. Pain level reassessed. Patient is alert, oriented x 3, equal unlabored respirations, skin warm/dry/pink. Patient denies pain at this time. jv1 00:00 General: Appears in no apparent distress. comfortable, Behavior is calm, jv1 cooperative, appropriate for age, jv1 00:00 Pain: Denies pain. jv1 jv1 00:00 Neuro: Level of Consciousness is awake, alert, obeys commands, jv1 jv1 00:00 Cardiovascular: Denies chest pain, palpitations, shortness of breath, jv1 jv1 00:00 Respiratory: Respiratory effort is even, unlabored, Respiratory pattern is jv1 regular, symmetrical, jv1 00:00 GI: No signs and/or symptoms were reported involving the gastrointestinal system. jv1 jv1 00:00 : No signs and/or symptoms were reported regarding the genitourinary system. [id number] 00:00 EENT: No signs and/or symptoms were reported regarding the EENT system. jv1 jv1 00:00 Derm: Skin is intact, is healthy with good turgor, Skin is pink, warm \\T\\ dry. jv1 jv1 00:00 Musculoskeletal: Circulation, motion, and sensation intact. Capillary refill < 3 jv1 seconds, jv1 00:00 General: Appears in no apparent distress. comfortable, Behavior is calm, jv1 cooperative, appropriate for age, jv1 03:42 05/05 23:00 Reassessment: Patient appears in no apparent distress at this time. Patient jv1 and/or family updated on plan of care and expected duration. Pain level reassessed. Patient is alert, oriented x 3, equal unlabored respirations, skin warm/dry/pink. Patient denies pain at this time. Patient states feeling better. jv1
--- NOTE | 2019-05-06 03:15 | EDPHYS ---
Physician Documentation [facility] Name: Tanner Lopes Age: 38 yrs Sex: Male : 1980 Arrival Date: 05/05/2019 Time: 18:18 Bed 17 Private MD: Unknown, Unknown ED Physician Josue Schwarz HPI: 05/06 06:40 This 38 yrs old Male presents to ER via Ambulatory with complaints of Anxiety, wa Panic Attack, Suicidal Ideation. 06:40 The patient presents to the emergency department with anxiety, paranoia, a history of wa substance abuse, Type: methamphetamines, cocaine, marijuana, a history of a suicide gesture, where the patient cut wrists. Onset: The symptoms/episode began/occurred 5 day(s) ago. Past psychiatric history: Prior diagnosis: bipolar disorder, depression, schizophrenia. Associated signs and symptoms: Pertinent positives; anxiety, paranoia, Pertinent negatives: delusions, fever. Severity of symptoms: At their worst the symptoms were moderate in the emergency department the symptoms are unchanged. The patient has experienced similar episodes in the past, several times. The patient has not recently seen a physician. states nerves are bad. relapsed and took a bunch of street drugs. Historical: - Allergies: 05/05 18:31 No Known Allergies; aa5 - Home Meds: 18:31 None [Active]; aa5 - PMHx: 18:31 Anxiety; Bipolar disorder; Depression; Schizophrenia; aa5 - PSHx: 18:31 None; aa5 - Immunization history:: Adult Immunizations unknown. - Social history:: Smoking status: Patient uses tobacco products, smokes one pack cigarettes per day. Patient uses alcohol, on a daily basis. claims drinking about a 6 pack/day. street drugs, cocaine, Methamphetamine (Meth). - Ebola Screening: : No symptoms or risks identified at this time. - Family history:: not pertinent. - Hospitalizations: : No recent hospitalization is reported. ROS: 05/06 06:42 Constitutional: Negative for fever, chills, and weight loss, Eyes: Negative for injury, wa pain, redness, and discharge, ENT: Negative for injury, pain, and discharge, Neck: Negative for injury, pain, and swelling, Cardiovascular: Negative for chest pain, palpitations, and edema, Respiratory: Negative for shortness of breath, cough, wheezing, and pleuritic chest pain, Abdomen/GI: Negative for abdominal pain, nausea, vomiting, diarrhea, and constipation, Back: Negative for injury and pain, : Negative for injury, bleeding, discharge, and swelling, MS/Extremity: Negative for injury and deformity, Neuro: Negative for headache, weakness, numbness, tingling, and seizure. Skin: Positive for abrasion(s), of the wrist. Psych: Positive for anxiety, drug dependence, suicide gesture, suicidal ideation. All other systems are negative. Exam: 06:43 Constitutional: This is a well developed, well nourished patient who is awake, alert, wa and in no acute distress. Head/Face: Normocephalic, atraumatic. Eyes: Pupils equal round and reactive to light, extra-ocular motions intact. Lids and lashes normal. Conjunctiva and sclera are non-icteric and not injected. Cornea within normal limits. Periorbital areas with no swelling, redness, or edema. ENT: Nares patent. No nasal discharge, no septal abnormalities noted. Tympanic membranes are normal and external auditory canals are clear. Oropharynx with no redness, swelling, or masses, exudates, or evidence of obstruction, uvula midline. Mucous membranes moist. Neck: Trachea midline, no thyromegaly or masses palpated, and no cervical lymphadenopathy. Supple, full range of motion without nuchal rigidity, or vertebral point tenderness. No Meningismus. Chest/axilla: Normal chest wall appearance and motion. Nontender with no deformity. No lesions are appreciated. Cardiovascular: Regular rate and rhythm with a normal S1 and S2. No gallops, murmurs, or rubs. Normal PMI, no JVD. No pulse deficits. Respiratory: Lungs have equal breath sounds bilaterally, clear to auscultation and percussion. No rales, rhonchi or wheezes noted. No increased work of breathing, no retractions or nasal flaring. Abdomen/GI: Soft, non-tender, with normal bowel sounds. No distension or tympany. No guarding or rebound. No evidence of tenderness throughout. Back: No spinal tenderness. No costovertebral tenderness. Full range of motion. MS/ Extremity: Pulses equal, no cyanosis. Neurovascular intact. Full, normal range of motion. Neuro: Awake and alert, GCS 15, oriented to person, place, time, and situation. Cranial nerves II-XII grossly intact. Motor strength 5/5 in all extremities. Sensory grossly intact. Cerebellar exam normal. Normal gait. Psych: Awake, alert, with orientation to person, place and time. Behavior, mood, and affect are within normal limits. 06:43 Skin: injury, abrasion(s), of the bilateral volar wrist. Vital Signs: 05/05 18:32 BP 136 / 85; Pulse 84; Resp 18 S; Temp 98.5(O); Pulse Ox 100% on R/A; Weight 90.72 kg aa5 (R); Height 6 ft. 1 in. (185.42 cm) (R); Pain 0/10; 20:00 BP 137 / 87; Pulse 79; Resp 18 S; Temp 98.6(O); Pulse Ox 100% on R/A; Pain 0/10; jv1 05/06 00:00 BP 124 / 79; Pulse 68; Resp 18 S; Temp 98.5(O); Pulse Ox 100% on R/A; Pain 0/10; jv1 04:00 BP 125 / 80 Supine; Pulse 69; Resp 18 S; Temp 98.5; Pulse Ox 100% on R/A; Pain 0/10; jv1 05/05 18:32 Body Mass Index 26.39 (90.72 kg, 185.42 cm) aa5 MDM: 05/05 19:26 Patient medically screened. ca 05/06 06:44 Differential diagnosis: drug withdrawal. acute psychotic break, depression, psychosis wa secondary to non-compliance. Data reviewed: vital signs, nurses notes. Test interpretation: by ED physician or midlevel provider: noted positive for cocaine. meth and THC. 06:46 Response to treatment: the patient's symptoms have markedly improved after treatment. ca Special discussion: seen by [facility] psych. recommended in pt treatment. [facility] went to [facility] . 05/05 19:33 Order name: Acetaminophen; Complete Time: : [facility] 05/05 19:33 Order name: Basic Metabolic Panel; Complete Time: 01:02 tr05/05 19:33 Order name: CBC with Diff; Complete Time: 01:02 tr5 05/05 19:33 Order name: ETOH Level; Complete Time: 01:02 tr5 05/05 19:33 Order name: Hepatic Function; Complete Time: 01: [facility] 05/05 19:33 Order name: PT-INR; Complete Time: 01:02 [facility] 05/05 19:33 Order name: Ptt, Activated; Complete Time: 01:02 [facility] 05/05 19:33 Order name: Salicylate [facility] 05/05 19:33 Order name: Urine Drug Screen; Complete Time: 01:02 [facility] 05/05 19:33 Order name: EKG; Complete Time: 19:35 [facility] 05/05 19:33 Order name: EKG - Nurse/Tech; Complete Time: 19:37 [facility] 05/05 19:33 Order name: IV Saline Lock; Complete Time: 19:37 [facility] 05/05 19:33 Order name: Labs collected and sent; Complete Time: 19:37 [facility] 05/05 19:42 Order name: Urine Dipstick--Ancillary (enter results); Complete Time: 01:02 [facility] 05/05 19:33 Order name: Urine Dipstick-Ancillary (obtain specimen); Complete Time: 19:37 tr Administered Medications: No medications were administered Disposition: 05/06/19 03:13 Transfer ordered to [facility]. Diagnosis are Suicidal ideation, polysubstance abuse. - Reason for transfer: Higher level of care. - Accepting physician is [facility]. - Condition is Stable. - Problem is an acute exacerbation. - Symptoms have improved. Signatures: Dispatcher [employer] Sangita Lal RN RN aa5 Josue Schwarz MD MD wa Rodriguez, Tommie, RN RN tr5 Corrections: (The following items were deleted from the chart) 04:12 03:13 05/06/2019 03:13 Transfer ordered to [facility]. Diagnosis is tr5 Suicidal ideation; polysubstance abuse. Reason for transfer: Higher level of care. Accepting physician is [facility]. Condition is Stable. Problem is an acute exacerbation. Symptoms have improved. dale
[2019-05-06 04:20] VITALS: O2SAT 100
[2019-05-06 04:23] VITALS: TEMP 98.5
[2019-05-06 04:24] VITALS: BP 125/80
--- NOTE | 2019-05-06 12:35 | EKG ---
Test Date: 2019-05-05 Test Time: 19:24:42 Biotechnologist: NELLIE MEASUREMENT RESULTS: Intervals: Rate: 79 MD: 150 QRSD: 92 QT: 364 QTc: 417 [place]: P: 81 MD: 150 QRS: 76 T: 62 INTERPRETIVE STATEMENTS: Normal sinus rhythm Possible Left atrial enlargement Possible Lateral infarct, age undetermined Abnormal ECG Compared to ECG 12/23/2018 17:12:22 Myocardial infarct finding now present Electronically Signed On 05-06-19 12:32:54 CDT by Joe Miramontes
== END 2019-05-06 04:12 | disposition short-term general hospital (02) ==
LOC: ER 18:17
DX: R45.851 Suicidal ideations (principal); F19.10 Other psychoactive substance abuse, uncomplicated; F41.9 Anxiety disorder, unspecified; F31.9 Bipolar disorder, unspecified; F32.9 Major depressive disorder, single episode, unspecified; F20.9 Schizophrenia, unspecified; F17.210 Nicotine dependence, cigarettes, uncomplicated
CPT/HCPCS: 36415; 80048; 80076; 80307; 80320; 80329; 81003; 85025; 85610; 85730; 93005; 99285

== ENCOUNTER 2019-05-31 07:00 | Emergency (ER) | payer SELFPAY ==
[2019-05-31] MEDS ORDERED: DIAZEPAM 5 MG TABLET ONE ×2 (07:18→11:18)
[2019-05-31 07:58] LABS: Barbiturates NEGATIVE (NEGATIVE); Benzodiazepines NEGATIVE (NEGATIVE); Cocaine NEGATIVE (NEGATIVE); METHAMPHETAM POSITIVE (NEGATIVE); Methadone NEGATIVE (NEGATIVE); Opiates NEGATIVE (NEGATIVE); Phencyclidine NEGATIVE (NEGATIVE); THC Cannibis POSITIVE (NEGATIVE)
[2019-05-31 08:00] LABS: Absolute Lymphocytes (CBC) 1.3 K/uL (0.7-4.9); Basophils % 0.3 % (0-1.3); Hematocrit 42.4 % (39.6-49.0); Lymphocytes % 16.3 % (15.3-44.8); MPV 7.6 fL (7.6-11.3); Protime INR 0.98; RBC Red Blood Cell Count 4.58 M/uL (4.33-5.43)
[2019-05-31 08:03] LABS: ALT/SGPT 62 U/L (12-78); AST/SGOT 72 U/L (15-37); Albumin 4.7 g/dL (3.4-5.0); Alkaline Phosphatase 74 U/L (45-117); BUN Blood Urea Nitrogen 14 mg/dL (7-18); Bicarbonate 28 mmol/L (21-32); Bilirubin Direct 0.4 mg/dL (0-0.2); Glucose Level 93 mg/dL (74-106); Potassium 3.1 mmol/L (3.5-5.1); Protein, Total 8.6 g/dL (6.4-8.2); Sodium Level 140 mmol/L (136-145)
[2019-05-31 08:29] LABS: Urine Blood NEGATIVE (NEG); Urine Glucose NEGATIVE (NEG); Urine Protein 1+ (NEG); Urine Specific Gravity >1.030 (1.005-1.030)
--- NOTE | 2019-05-31 11:13 | ER ---
Nurse's Notes [facility] Name: Tanner Lopes Age: 38 yrs Sex: Male : 1980 Arrival Date: 05/31/2019 Time: 07:01 Bed 18 Private MD: Diagnosis: Bipolar disorder;Schizophrenia;Suicidal ideations Presentation: 05/31 07:05 Presenting complaint: EMS states: Reports pt has been feeling paranoid, anxious and ea wanted to get a psych eval. Pt reports he has been under a lot of stress and is unable to cope. Transition of care: patient was not received from another setting of care. Onset of symptoms was May 31, 2019. Risk Assessment: Do you want to hurt yourself or someone else? Patient reports no desire to harm self or others. Initial Sepsis Screen: Does the patient meet any 2 criteria? No. Patient's initial sepsis screen is negative. Does the patient have a suspected source of infection? No. Patient's initial sepsis screen is negative. Care prior to arrival: None. 07:05 Method Of Arrival: EMS: [facility] ea 07:05 Acuity: RADHA 2 ea Triage Assessment: 07:40 General: Appears in no apparent distress. uncomfortable, unkempt, Behavior is hj cooperative, appropriate for age, anxious. Pain: Denies pain. Historical: - Allergies: 07:10 No Known Allergies; ea - Home Meds: 07:41 gabapentin Oral [Active]; Hydroxyzine Oral [Active]; trazadone [Active]; Vistaril Oral hj [Active]; - PMHx: 07:10 Schizophrenia; Depression; Bipolar disorder; Anxiety; ea - PSHx: 07:10 None; ea - Immunization history:: Adult Immunizations up to date. - Social history:: Smoking status: Patient uses tobacco products, smokes one-half pack cigarettes per day. - Ebola Screening: : No symptoms or risks identified at this time. - Family history:: not pertinent. - Hospitalizations: : No recent hospitalization is reported. Screenin:07 Abuse screen: Denies threats or abuse. Nutritional screening: No deficits noted. ea Tuberculosis screening: No symptoms or risk factors identified. Fall Risk None identified. Assessment: 07:07 General: Appears in no apparent distress. uncomfortable, Behavior is cooperative, hj appropriate for age, anxious. Pain: Denies pain. Neuro: Level of Consciousness is awake, alert, obeys commands, Oriented to person, place, time, situation, Appropriate for age. Cardiovascular: Capillary refill < 3 seconds Patient's skin is warm and dry. Respiratory: Airway is patent Respiratory effort is even, unlabored, Respiratory pattern is regular, symmetrical. GI: No signs and/or symptoms were reported involving the gastrointestinal system. : No signs and/or symptoms were reported regarding the genitourinary system. EENT: No signs and/or symptoms were reported regarding the EENT system. Derm: No signs and/or symptoms reported regarding the dermatologic system. Musculoskeletal: No signs and/or symptoms reported regarding the musculoskeletal system. 08:08 Reassessment: Patient and/or family updated on plan of care and expected duration. Pain hj level reassessed. Patient is alert, oriented x 3, equal unlabored respirations, skin warm/dry/pink. Patient states feeling better. 09:33 Reassessment: Glenn león in room with pt;. 11:15 Reassessment: Glenn Devine left the room;. hj 11:50 Reassessment: pt finished diet tray at this time, no assistance needed, pt remains on sg psych watch at this time per hospital policy, will continue to monitor. 12:30 Reassessment: [facility] called requesting information if pt is a contract bed, sg unsure. [employer] admissions representative reports she will call [facility] for more information, pt continues to wait in the emergency room at this time. 18:21 Reassessment: Patient appears in no apparent distress at this time. Patient and/or sg family updated on plan of care and expected duration. Pain level reassessed. Patient is alert, oriented x 3, equal unlabored respirations, skin warm/dry/pink. pt observed pacing around ER exam room at this time drinking water, pt tolerating well, pt reports " just stretching my legs.". 19:15 Reassessment: Patient appears in no apparent distress at this time. Patient and/or cc3 family updated on plan of care and expected duration. Pain level reassessed. Patient is alert, oriented x 3, equal unlabored respirations, skin warm/dry/pink. Received this male patient from morning shift MASSIMO Lee as a case of anxiety and suicidal ideations, already seen by glenn devine as endorsed. With IV cannula gauge 20 at the left ACV saline locked. Patient denies pain at this time. General: Appears in no apparent distress. comfortable, Behavior is calm, cooperative. Pain: Denies pain. Neuro: Level of Consciousness is awake, alert, obeys commands, Oriented to person, place, time, situation, Appropriate for age. Cardiovascular: Denies chest pain, Capillary refill < 3 seconds Patient's skin is warm and dry. Respiratory: Airway is patent Respiratory effort is even, unlabored, Respiratory pattern is regular, symmetrical. GI: Abdomen is round non-distended. : No signs and/or symptoms were reported regarding the genitourinary system. EENT: No signs and/or symptoms were reported regarding the EENT system. Derm: Skin is intact, is healthy with good turgor, Skin is pink, warm \\T\\ dry. normal. Musculoskeletal: Circulation, motion, and sensation intact. Range of motion: intact in all extremities. 20:18 Reassessment: Patient appears in no apparent distress at this time. Patient and/or cc3 family updated on plan of care and expected duration. Pain level reassessed. Patient is alert, oriented x 3, equal unlabored respirations, skin warm/dry/pink. Patient denies pain at this time. 21:25 Reassessment: Patient appears in no apparent distress at this time. Patient and/or cc3 family updated on plan of care and expected duration. Pain level reassessed. Patient is alert, oriented x 3, equal unlabored respirations, skin warm/dry/pink. Patient denies pain at this time. 22:22 Reassessment: Patient appears in no apparent distress at this time. Patient and/or cc3 family updated on plan of care and expected duration. Pain level reassessed. Patient is alert, oriented x 3, equal unlabored respirations, skin warm/dry/pink. Patient denies pain at this time. 23:18 Reassessment: Patient appears in no apparent distress at this time. Patient and/or cc3 family updated on plan of care and expected duration. Pain level reassessed. Patient is alert, oriented x 3, equal unlabored respirations, skin warm/dry/pink. sitter present Patient denies pain at this time. 06/01 00:16 Reassessment: Patient appears in no apparent distress at this time. Patient and/or cc3 family updated on plan of care and expected duration. Pain level reassessed. Patient is alert, oriented x 3, equal unlabored respirations, skin warm/dry/pink. Patient denies pain at this time. 01:25 Reassessment: Patient appears in no apparent distress at this time. Patient and/or cc3 family updated on plan of care and expected duration. Pain level reassessed. Patient is alert, oriented x 3, equal unlabored respirations, skin warm/dry/pink. Patient denies pain at this time. 02:35 Reassessment: Patient appears in no apparent distress at this time. Patient and/or cc3 family updated on plan of care and expected duration. Pain level reassessed. Patient is alert, oriented x 3, equal unlabored respirations, skin warm/dry/pink. Patient denies pain at this time. 03:36 Reassessment: Patient appears in no apparent distress at this time. Patient and/or cc3 family updated on plan of care and expected duration. Pain level reassessed. Patient is alert, oriented x 3, equal unlabored respirations, skin warm/dry/pink. Patient denies pain at this time. 04:45 Reassessment: Patient appears in no apparent distress at this time. Patient and/or cc3 family updated on plan of care and expected duration. Pain level reassessed. Patient is alert, oriented x 3, equal unlabored respirations, skin warm/dry/pink. sitter present Patient denies pain at this time. 05:15 Reassessment: Patient appears in no apparent distress at this time. Patient and/or cc3 family updated on plan of care and expected duration. Pain level reassessed. Patient is alert, oriented x 3, equal unlabored respirations, skin warm/dry/pink. Patient denies pain at this time. 06:30 Reassessment: Patient appears in no apparent distress at this time. Patient and/or cc3 family updated on plan of care and expected duration. Pain level reassessed. Patient is alert, oriented x 3, equal unlabored respirations, skin warm/dry/pink. Patient denies pain at this time. 07:00 Reassessment: Resting in bed with eyes closed, respirations even and unlabored, skin is aa5 pink/warm/dry. Awaiting acceptance for transfer to psych facility. . 07:30 Reassessment: Pt awake at this time. Awaiting breakfast tray, pt notified of wait time. aa5 . 07:30 General: Appears comfortable, Behavior is calm, cooperative. Pain: Denies pain. Neuro: aa5 Level of Consciousness is awake, alert, obeys commands, Oriented to person, place, time, situation, Appropriate for age. Cardiovascular: Heart tones S1 S2 present Rhythm is regular. Respiratory: Airway is patent Respiratory effort is even, unlabored, Respiratory pattern is regular, symmetrical, Breath sounds are clear bilaterally. GI: Abdomen is round non-distended, Bowel sounds present X 4 quads. Abd is soft and non tender X 4 quads. : No signs and/or symptoms were reported regarding the genitourinary system. EENT: No signs and/or symptoms were reported regarding the EENT system. Derm: Skin is pink, warm \\T\\ dry. Musculoskeletal: Range of motion: intact in all extremities. 07:43 Reassessment: Pt brushing his teeth, washing his face in the room, sitter remains at aa5 bedside. More blankets provided, bed linen changed. . 08:30 Reassessment: Patient is alert, oriented x 3, equal unlabored respirations, skin aa5 warm/dry/pink. Pt sitting up in bed eating breakfast, pt tolerating well. 09:30 Reassessment: Patient is alert, oriented x 3, equal unlabored respirations, skin aa5 warm/dry/pink. Pt ate 100% of breakfast. . 10:18 Reassessment: PATIENT IS RECEIVED ALERT AND AWAKE, CALM AND COOPERATIVE. SITTING ON THE rv SIDE OF THE BED USING HIS CELLPHONE. 12:08 Reassessment: Nurse to Nurse report given to MASSIMO Woods at [facility]. 12:33 Reassessment: After speaking with patient, patient states that he no longer would like to be transferred as he has a possible job opportunity coming up this evening and does not want to miss it. Denies SI, HI at this time, but did voice that if he was to get upset by people holding him back from getting his life together he may "smash their heads." Dr. Sher notified and states to call mental health deputy at this time to obtain TIMOTHY. 12:45 Reassessment: Mental Health [place] Hilda states that he will be here shortly to determine whether or not an TIMOTHY would be appropriate at this time. 15:15 Reassessment: Called [facility] dispatch to obtain ETA for mental health deputy. [place] has been paged. 15:35 Reassessment: Calderon Stevens states that he is leaving [facility] now and will be at our facility momentarily. 16:25 Reassessment: TIMOTHY obtained at this time by [place] Stevens as patient will not states whether or not he is currently suicidal, but states, "I'm suicidal every day of my life!". When asked by [place] if patient is having homicidal ideations, patient states, "I do not act on it. I plead the fifth." Patient appears upset, tearful, yelling and speaking louldy. Patient repeats multiple times that he does not want to be transported because "it's just a bad time!". 16:35 Reassessment: Patient now in custody of mental health deputy. Psych: 05/31 19:20 Subjective: Patient's mood is normal Delusions are denied, Hallucinations are denied. cc3 Objective: Patient is cooperative, Speech is normal, Affect is appropriate. Interventions: Removed personal items and placed in bag. Patient placed in hospital gown. Searched person for dangerous items. Urine collected and sent for urine drug test. Belonging list filled out. Suicide Risk Assessment: Sad Person Scale: Sex of patient: Male: Score 1 point. Age of patient: Score 0 point if patient falls outside of specified age parameters. Depression: Score 0 point if signs of depression are not present. Previous Attempt: Score 1 point if patient has previously attempted suicide. Substance Abuse: Score 1 point if patient abuses alcohol or drugs. Rational Thinking: Score 0 point if patient has rational thinking. Social Support: Score 1 point if social support is lacking and/or unavailable. Organized Plan: Score 0 if patient did not have an organized plan in place. Relationship: Score 1 point if patient is , , , or for a single male Chronic Sickness: Score 0 point if patient does not have a chronic illness, debilitating, or severe disorder. Safety Checks: Personal items have been removed. Door is open. No visitors are present at this time. sitter present. Patient uses methamphetamines Last use was patient cannot remember. Commitment: Patient will be a voluntary commitment. Vital Signs: 07:08 BP 127 / 82; Pulse 89; Resp 19; Temp 98.4; Pulse Ox 100% on R/A; Weight 81.65 kg; hj Height 6 ft. 1 in. (185.42 cm); 11:13 BP 136 / 90; Pulse 88; Resp 18; Temp 98.0; Pulse Ox 100% on R/A; mh5 16:35 BP 132 / 85; Pulse 76; Resp 16; Temp 98.2(TE); Pulse Ox 100% on R/A; mh5 19:58 BP 122 / 76; Pulse 85; Resp 18; Temp 98.1; Pulse Ox 99% on R/A; Pain 0/10; kb2 06/01 00:00 BP 113 / 69; Pulse 65; Resp 18; Temp 97.1; Pulse Ox 99% on R/A; kb2 03:50 BP 121 / 72; Pulse 62; Resp 18; Temp 97.8; Pulse Ox 99% on R/A; kb2 07:50 BP 123 / 69; Pulse 58; Resp 17; Temp 97.7(O); Pulse Ox 100% on R/A; mh5 11:50 BP 125 / 83; Pulse 66; Resp 17; Temp 97.8(O); Pulse Ox 100% on R/A; mh5 05/31 07:08 Body Mass Index 23.75 (81.65 kg, 185.42 cm) ED Course: 05/31 07:01 Patient arrived in ED. am2 07:02 Nick Ocampo MD is Attending Physician. rn 07:07 Triage completed. ea 07:07 Patient has correct armband on for positive identification. Bed in low position. Call ea light in reach. Side rails up X2. 07:08 Arm band placed on right wrist. Patient placed in an exam room, on a stretcher, on ea pulse oximetry. 07:15 Kerwin Johnson, MASSIMO is Primary Nurse. 07:15 Safety checks: Items removed: yes. Door open/sign placed on door: yes. Family/friend mh5 present: no. Sitter present: Yes. 07:30 Safety checks: Items removed: yes. Door open/sign placed on door: yes. Family/friend mh5 present: no. Sitter present: Yes. 07:39 EKG done, by hydraulic controls technician. reviewed by Nick Ocampo MD. tc 07:39 Initial lab(s) drawn, by me, sent to lab. Urine collected: clean catch specimen. hj Inserted saline lock: 20 gauge in left antecubital area, using aseptic technique. Blood collected. 07:45 Safety checks: Items removed: yes. Door open/sign placed on door: yes. Family/friend mh5 present: no. Sitter present: Yes. 08:00 Safety checks: Items removed: yes. Door open/sign placed on door: yes. Family/friend mh5 present: no. Sitter present: Yes. 08:05 Urine collected: clean catch specimen, tea colored. mh5 08:10 contacted [facility] to have screener to come evaluate patient. bd 08:15 Safety checks: Items removed: yes. Door open/sign placed on door: yes. Family/friend mh5 present: no. Sitter present: Yes. 08:30 Safety checks: Items removed: yes. Door open/sign placed on door: yes. Family/friend mh5 present: no. Sitter present: Yes. 08:45 Safety checks: Items removed: yes. Door open/sign placed on door: yes. Family/friend mh5 present: no. Sitter present: Yes. 09:00 Safety checks: Items removed: yes. Door open/sign placed on door: yes. Family/friend mh5 present: no. Sitter present: Yes. 09:15 Safety checks: Items removed: yes. Door open/sign placed on door: yes. Family/friend mh5 present: no. Sitter present: Yes. 09:30 Safety checks: Items removed: yes. Door open/sign placed on door: yes. Family/friend mh5 present: Other: [facility] IN WITH PATIENT . Sitter present: Yes. 09:45 Safety checks: Items removed: yes. Door open/sign placed on door: yes. Family/friend mh5 present: Other: [facility] WITH PATIENT. Sitter present: Yes. Safety checks: Items removed: yes. Door open/sign placed on door: yes. Family/friend present: Other: [facility] IN WITH PATIENT . 10:00 Safety checks: Items removed: yes. Door open/sign placed on door: yes. Family/friend mh5 present: Other: [facility] IN WITH PATIENT . Sitter present: Yes. 10:15 Safety checks: Items removed: yes. Door open/sign placed on door: no. Family/friend mh5 present: Other: [facility] IN WITH PATIENT . Sitter present: Yes. 10:30 Safety checks: Items removed: yes. Door open/sign placed on door: yes. Family/friend mh5 present: Other: [facility] IN WITH PATIENT . 10:45 Safety checks: Items removed: yes. Door open/sign placed on door: yes. Family/friend mh5 present: no. Sitter present: Yes. 11:00 Safety checks: Items removed: yes. Door open/sign placed on door: yes. Family/friend mh5 present: no. Sitter present: Yes. 11:15 Safety checks: Items removed: yes. Door open/sign placed on door: yes. Family/friend mh5 present: no. Sitter present: Yes. 11:30 Safety checks: Items removed: yes. Door open/sign placed on door: yes. Family/friend mh5 present: no. Sitter present: Yes. 11:45 Safety checks: Items removed: yes. Door open/sign placed on door: yes. Family/friend mh5 present: no. Sitter present: Yes. 11:49 Primary Nurse role handed off by Kerwin Johnson RN sg 11:49 Jesus Ferro RN is Primary Nurse. sg 12:00 Safety checks: Items removed: yes. Door open/sign placed on door: yes. Family/friend mh5 present: no. Sitter present: Yes. 12:15 Safety checks: Items removed: yes. Door open/sign placed on door: yes. Family/friend mh5 present: no. Sitter present: Yes. 12:23 Diet: Patient given a heart healthy meal tray. mh5 12:30 Safety checks: Items removed: yes. Door open/sign placed on door: yes. Family/friend mh5 present: no. Sitter present: Yes. 12:45 Safety checks: Items removed: yes. Door open/sign placed on door: yes. Family/friend mh5 present: no. Sitter present: Yes. 13:00 Safety checks: Items removed: yes. Door open/sign placed on door: yes. Family/friend mh5 present: no. Sitter present: Yes. 13:15 Safety checks: Items removed: yes. Door open/sign placed on door: yes. Family/friend mh5 present: no. Sitter present: Yes. 13:30 Safety checks: Items removed: yes. Door open/sign placed on door: yes. Family/friend mh5 present: no. Sitter present: Yes. 13:45 Safety checks: Items removed: yes. Door open/sign placed on door: yes. Family/friend mh5 present: no. Sitter present: Yes. 14:00 Safety checks: Items removed: yes. Door open/sign placed on door: yes. Family/friend mh5 present: no. Sitter present: Yes. 14:15 Safety checks: Items removed: yes. Door open/sign placed on door: yes. Family/friend mh5 present: no. Sitter present: Yes. 14:30 Safety checks: Items removed: yes. Door open/sign placed on door: yes. Family/friend mh5 present: no. Sitter present: Yes. 14:45 Safety checks: Items removed: yes. Door open/sign placed on door: yes. Family/friend mh5 present: no. Sitter present: Yes. 15:00 Safety checks: Items removed: yes. Door open/sign placed on door: yes. Family/friend mh5 present: no. Sitter present: Yes. 15:15 Safety checks: Items removed: yes. Door open/sign placed on door: yes. mh5 15:30 Safety checks: Items removed: yes. Door open/sign placed on door: yes. Family/friend mh5 present: no. Sitter present: Yes. 15:45 Safety checks: Items removed: yes. Door open/sign placed on door: yes. Family/friend mh5 present: no. Sitter present: Yes. 16:00 Safety checks: Items removed: yes. Door open/sign placed on door: yes. Family/friend mh5 present: no. Sitter present: Yes. 16:15 Safety checks: Items removed: yes. Safety checks: Items removed: yes. Door open/sign kj1 placed on door: yes. Family/friend present: no. Sitter present: Yes. Placed in gown. Side rails up X 1. 16:30 Safety checks: Items removed: yes. Door open/sign placed on door: yes. Family/friend mh5 present: no. Sitter present: Yes. 16:45 Safety checks: Items removed: yes. Door open/sign placed on door: yes. Family/friend mh5 present: no. Sitter present: Yes. 16:47 faxed chart to [facility], [facility], [facility], [facility], [facility], [facility] and [facility]. 17:00 Safety checks: Items removed: yes. Door open/sign placed on door: yes. Family/friend mh5 present: no. Sitter present: Yes. 17:01 pt is on [facility] waiting list at [facility]. bd 17:15 Safety checks: Items removed: yes. Door open/sign placed on door: yes. Family/friend mh5 present:. 17:30 Safety checks: Items removed: yes. Door open/sign placed on door: yes. Family/friend mh5 present: no. Sitter present: Yes. 17:45 Safety checks: Items removed: yes. Door open/sign placed on door: yes. Family/friend mh5 present: no. Sitter present: Yes. 18:15 Safety checks: Items removed: yes. Door open/sign placed on door: yes. Family/friend mh5 present: no. Sitter present: Yes. 18:30 Safety checks: Items removed: yes. Door open/sign placed on door: yes. Family/friend mh5 present: no. Sitter present: Yes. 18:45 Safety checks: Items removed: yes. Door open/sign placed on door: yes. Family/friend mh5 present: no. Sitter present: Yes. 18:57 Safety checks: Items removed: yes. Door open/sign placed on door: yes. Family/friend mh5 present: no. Sitter present: Yes. 19:01 Report given to MASSIMO Acharya. sg 19:14 Patrizia Queen is Primary Nurse. cc3 19:15 Safety Checks: Personal items have been removed. The door is open or patient has been kb2 placed in a hallway bed/chair. Sitter present at this time. 19:30 Safety Checks: Personal items have been removed. The door is open or patient has been kb2 placed in a hallway bed/chair. There are no family/friend visitors at this time Sitter present at this time. 19:45 Safety Checks: Personal items have been removed. kb2 20:00 Safety Checks: Personal items have been removed. The door is open or patient has been kb2 placed in a hallway bed/chair. There are no family/friend visitors at this time Sitter present at this time. 20:00 pt eating snacks. Safety Checks: Personal items have been removed. The door is open or kb2 patient has been placed in a hallway bed/chair. There are no family/friend visitors at this time Sitter present at this time. 20:15 Safety Checks: Personal items have been removed. The door is open or patient has been kb2 placed in a hallway bed/chair. Sitter present at this time. 20:30 Safety Checks: Personal items have been removed. The door is open or patient has been kb2 placed in a hallway bed/chair. There are no family/friend visitors at this time Sitter not present at this time. 20:45 Safety Checks: Personal items have been removed. The door is open or patient has been kb2 placed in a hallway bed/chair. There are no family/friend visitors at this time Sitter present at this time. 21:00 Safety Checks: Personal items have been removed. The door is open or patient has been kb2 placed in a hallway bed/chair. There are no family/friend visitors at this time Sitter present at this time. 21:15 Safety Checks: Personal items have been removed. The door is open or patient has been kb2 placed in a hallway bed/chair. There are no family/friend visitors at this time Sitter present at this time. 21:30 Safety Checks: Personal items have been removed. The door is open or patient has been kb2 placed in a hallway bed/chair. There are no family/friend visitors at this time Sitter present at this time. 21:45 Safety Checks: Personal items have been removed. The door is open or patient has been kb2 placed in a hallway bed/chair. There are no family/friend visitors at this time Sitter present at this time. 22:00 Safety Checks: Personal items have been removed. The door is open or patient has been kb2 placed in a hallway bed/chair. There are no family/friend visitors at this time Sitter present at this time. 22:15 Safety Checks: Personal items have been removed. The door is open or patient has been kb2 placed in a hallway bed/chair. There are no family/friend visitors at this time Sitter present at this time. 22:30 pt. eating snacks, tolerated well. Safety Checks: The door is open or patient has been kb2 placed in a hallway bed/chair. There are no family/friend visitors at this time Sitter present at this time. 22:45 Safety Checks: Personal items have been removed. The door is open or patient has been kb2 placed in a hallway bed/chair. There are no family/friend visitors at this time Sitter present at this time. 23:00 Safety Checks: Personal items have been removed. The door is open or patient has been kb2 placed in a hallway bed/chair. There are no family/friend visitors at this time Sitter present at this time. 23:15 Safety Checks: Personal items have been removed. The door is open or patient has been kb2 placed in a hallway bed/chair. There are no family/friend visitors at this time Sitter present at this time. 23:30 Safety Checks: Personal items have been removed. The door is open or patient has been kb2 placed in a hallway bed/chair. There are no family/friend visitors at this time Sitter present at this time. 23:45 Safety Checks: Personal items have been removed. The door is open or patient has been kb2 placed in a hallway bed/chair. Items have not been removed Sitter present at this time. 06/01 00:00 Safety Checks: Personal items have been removed. The door is open or patient has been kb2 placed in a hallway bed/chair. There are no family/friend visitors at this time Sitter present at this time. 00:15 Safety Checks: Personal items have been removed. The door is open or patient has been kb2 placed in a hallway bed/chair. There are no family/friend visitors at this time Sitter present at this time. 00:30 Safety Checks: Personal items have been removed. The door is open or patient has been kb2 placed in a hallway bed/chair. There are no family/friend visitors at this time Sitter present at this time. 00:45 Safety Checks: Personal items have been removed. The door is open or patient has been kb2 placed in a hallway bed/chair. There are no family/friend visitors at this time Sitter present at this time. 01:00 Safety Checks: Personal items have been removed. The door is open or patient has been kb2 placed in a hallway bed/chair. There are no family/friend visitors at this time Sitter present at this time. 01:15 Safety Checks: Personal items have been removed. The door is open or patient has been kb2 placed in a hallway bed/chair. There are no family/friend visitors at this time Sitter present at this time. 01:30 Safety Checks: Personal items have been removed. The door is open or patient has been kb2 placed in a hallway bed/chair. There are no family/friend visitors at this time Sitter present at this time. 01:45 Safety Checks: Personal items have been removed. The door is open or patient has been kb2 placed in a hallway bed/chair. There are no family/friend visitors at this time Sitter present at this time. 02:00 Safety Checks: Personal items have been removed. The door is open or patient has been kb2 placed in a hallway bed/chair. There are no family/friend visitors at this time Sitter present at this time. 02:15 Safety Checks: Personal items have been removed. The door is open or patient has been kb2 placed in a hallway bed/chair. There are no family/friend visitors at this time Sitter present at this time. 02:30 Safety Checks: Personal items have been removed. The door is open or patient has been kb2 placed in a hallway bed/chair. There are no family/friend visitors at this time Sitter present at this time. 02:45 Safety Checks: Personal items have been removed. The door is open or patient has been kb2 placed in a hallway bed/chair. There are no family/friend visitors at this time Sitter present at this time. 03:00 Safety Checks: Personal items have been removed. The door is open or patient has been kb2 placed in a hallway bed/chair. There are no family/friend visitors at this time Sitter present at this time. 03:15 Safety Checks: Personal items have been removed. The door is open or patient has been kb2 placed in a hallway bed/chair. There are no family/friend visitors at this time Sitter present at this time. 03:30 Safety Checks: Personal items have been removed. The door is open or patient has been kb2 placed in a hallway bed/chair. There are no family/friend visitors at this time Sitter present at this time. 03:45 Safety Checks: Personal items have been removed. The door is open or patient has been kb2 placed in a hallway bed/chair. There are no family/friend visitors at this time Sitter present at this time. 04:00 Safety Checks: Personal items have been removed. The door is open or patient has been kb2 placed in a hallway bed/chair. There are no family/friend visitors at this time Sitter present at this time. 04:15 Safety Checks: Personal items have been removed. The door is open or patient has been kb2 placed in a hallway bed/chair. There are no family/friend visitors at this time Sitter present at this time. 04:30 Safety Checks: Personal items have been removed. The door is open or patient has been kb2 placed in a hallway bed/chair. There are no family/friend visitors at this time Sitter present at this time. 04:45 Safety Checks: Personal items have been removed. The door is open or patient has been kb2 placed in a hallway bed/chair. There are no family/friend visitors at this time Sitter present at this time. 05:00 Safety Checks: Personal items have been removed. The door is open or patient has been kb2 placed in a hallway bed/chair. There are no family/friend visitors at this time Sitter present at this time. 05:15 Safety Checks: Personal items have been removed. The door is open or patient has been kb2 placed in a hallway bed/chair. There are no family/friend visitors at this time Sitter present at this time. 05:30 Safety Checks: Personal items have been removed. The door is open or patient has been kb2 placed in a hallway bed/chair. There are no family/friend visitors at this time Sitter present at this time. 05:45 Safety Checks: Personal items have been removed. The door is open or patient has been kb2 placed in a hallway bed/chair. There are no family/friend visitors at this time Sitter present at this time. 06:00 Safety Checks: Personal items have been removed. The door is open or patient has been kb2 placed in a hallway bed/chair. There are no family/friend visitors at this time Sitter present at this time. 06:15 Safety Checks: Personal items have been removed. The door is open or patient has been kb2 placed in a hallway bed/chair. There are no family/friend visitors at this time Sitter present at this time. 06:30 Safety Checks: Personal items have been removed. The door is open or patient has been kb2 placed in a hallway bed/chair. There are no family/friend visitors at this time Sitter present at this time. 06:45 Safety Checks: Personal items have been removed. The door is open or patient has been kb2 placed in a hallway bed/chair. There are no family/friend visitors at this time Sitter present at this time. 07:00 Safety Checks: Personal items have been removed. The door is open or patient has been kb2 placed in a hallway bed/chair. There are no family/friend visitors at this time Sitter present at this time. 07:00 Safety checks: Items removed: yes. Door open/sign placed on door: yes. Family/friend mh5 present: no. Sitter present: Yes. 07:00 Report given to MASSIMO Quesada. cc3 07:00 Report received from MASSIMO Acharya. aa5 07:13 Sangita Lucero RN is Primary Nurse. aa5 07:15 Safety checks: Items removed: yes. Door open/sign placed on door: yes. Family/friend mh5 present: no. Sitter present: Yes. 07:30 Safety checks: Items removed: yes. Door open/sign placed on door: yes. Family/friend mh5 present: no. Sitter present: Yes. Assisted to bathroom. Oral care given. Linen changed. 07:45 Safety checks: Items removed: yes. Door open/sign placed on door: yes. Family/friend mh5 present: no. Sitter present: Yes. 08:00 Safety checks: Items removed: yes. Door open/sign placed on door: yes. Family/friend mh5 present: no. Sitter present: Yes. 08:15 Diet: Patient given a regular meal tray. mh5 08:15 Safety checks: Items removed: yes. Door open/sign placed on door: yes. Family/friend mh5 present: no. Sitter present: Yes. 08:30 Safety checks: Items removed: yes. Door open/sign placed on door: yes. Family/friend mh5 present: no. Sitter present: Yes. 08:45 Safety checks: Items removed: yes. Door open/sign placed on door: yes. Family/friend mh5 present: no. Sitter present: Yes. 08:52 Diet: Patient given a regular meal tray. mh5 09:00 Safety checks: Items removed: yes. Door open/sign placed on door: yes. Family/friend mh5 present: no. Sitter present: Yes. 09:15 Safety checks: Items removed: yes. Door open/sign placed on door: yes. Family/friend mh5 present: no. Sitter present: Yes. 09:30 Safety checks: Items removed: yes. Door open/sign placed on door: yes. Family/friend mh5 present: no. Sitter present: Yes. 09:45 Safety checks: Items removed: yes. Door open/sign placed on door: yes. Family/friend mh5 present: no. Sitter present: Yes. 10:00 Safety checks: Items removed: yes. Door open/sign placed on door: yes. Family/friend mh5 present: no. Sitter present: Yes. 10:00 Report given to MASSIMO Angulo. aa5 10:00 Report received from SANGITA KEYS. rv 10:15 Safety checks: Items removed: yes. Door open/sign placed on door: yes. Family/friend mh5 present: no. Sitter present: Yes. 10:30 Safety checks: Items removed: yes. Door open/sign placed on door: yes. Family/friend mh5 present: no. Sitter present: Yes. 10:45 Safety checks: Items removed: yes. Door open/sign placed on door: yes. Family/friend mh5 present: no. Sitter present: Yes. 11:00 Safety checks: Items removed: yes. Door open/sign placed on door: yes. Family/friend mh5 present: no. Sitter present: Yes. 11:15 Safety checks: Items removed: yes. Door open/sign placed on door: yes. Family/friend mh5 present: no. Sitter present: Yes. 11:30 Safety checks: Items removed: yes. Door open/sign placed on door: yes. Family/friend mh5 present: no. Sitter present: Yes. 11:45 Safety checks: Items removed: yes. Door open/sign placed on door: yes. Family/friend mh5 present: no. Sitter present: Yes. 12:00 Safety checks: Items removed: yes. Door open/sign placed on door: yes. Family/friend mh5 present: no. Sitter present: Yes. 12:15 Safety checks: Items removed: yes. Door open/sign placed on door: yes. Family/friend mh5 present: no. Sitter present: Yes. 12:18 Diet: Patient given a regular meal tray. mh5 12:30 Safety checks: Items removed: yes. Door open/sign placed on door: yes. Family/friend mh5 present: no. Sitter present: Yes. 12:45 Safety checks: Items removed: yes. Door open/sign placed on door: yes. Family/friend mh5 present: no. Sitter present: Yes. 13:00 Safety checks: Items removed: yes. Door open/sign placed on door: yes. Family/friend mh5 present: no. Sitter present: Yes. 13:15 Safety checks: Items removed: yes. Door open/sign placed on door: yes. Family/friend mh5 present: no. Sitter present: Yes. 13:30 Safety checks: Items removed: yes. Door open/sign placed on door: yes. Family/friend mh5 present: no. Sitter present: Yes. 13:45 Safety checks: Items removed: yes. Door open/sign placed on door: yes. Family/friend mh5 present: no. Sitter present: Yes. 14:00 Safety checks: Items removed: yes. Door open/sign placed on door: yes. Family/friend jp3 present: no. Sitter present: Yes. 14:15 Safety checks: Items removed: yes. Door open/sign placed on door: yes. Family/friend jp3 present: no. Sitter present: Yes. 14:30 Safety checks: Items removed: yes. Door open/sign placed on door: yes. Family/friend mh5 present: no. Sitter present: Yes. 14:45 Safety checks: Items removed: yes. Door open/sign placed on door: yes. Family/friend mh5 present: no. Sitter present: Yes. 15:00 Safety checks: Items removed: yes. Door open/sign placed on door: yes. Family/friend mh5 present: no. Sitter present: Yes. 15:30 Safety checks: Items removed: yes. Door open/sign placed on door: yes. Family/friend mh5 present: no. Sitter present: Yes. 15:45 Safety checks: Items removed: yes. Door open/sign placed on door: yes. Family/friend mh5 present: no. Sitter present: Yes. 16:00 Safety checks: Items removed: Door open/sign placed on door: Family/friend present: mh5 Sitter present: Yes. Other: MENTAL HEALTH OFFICER IN WITH PATIENT . 16:22 notified the Intake department at [facility] that the [facility] will be eb transporting the patient to them. 16:32 Safety checks: Items removed: yes. Door open/sign placed on door: yes. Family/friend mh5 present: no. Other: MENTAL HEALTH OFFICER IN WITH PATIENT. Sitter present: Yes. 16:40 No provider procedures requiring assistance completed. IV discontinued, intact, ss bleeding controlled, No redness/swelling at site. Pressure dressing applied. 16:41 Liu Petit PA is PHCP. saucedo Administered Medications: 05/31 07:15 Drug: Valium 5 mg Route: PO; 07:45 Follow up: Response: No adverse reaction; Anxiety decreased hj 11:11 Drug: Valium 5 mg Route: PO; hj 11:19 Follow up: Response: No adverse reaction 18:28 Drug: Potassium Chloride 40 mEq Route: PO; 19:15 Follow up: Response: No adverse reaction cc3 Outcome: 11:12 ER care complete, transfer ordered by MD. keys 06/01 16:40 Transferred Transfer form completed. Note: Sent To [facility] by [facility] Hilda, in handcuffs as patient was involuntary and combative Condition: stable Instructed on the need for transfer. 16:44 Discharge ordered by MD. saucedo 16:46 Patient left the ED. hb Signatures: Mayte Maldonado Steven, RN Nick Kaur MD MD rn Calderon, Audri, RN RN aa5 Simran Quiros, RN RN ss Liu Petit, KYLE WRIGHT jr8 Luzma Mckeon, instrument panel assembler EKG Ttc Kerwin Johnson, RN MASSIMO Jennifer Elliott RN MASSIMO Dixon, [place] 5 Gregory, Dinorah am2 Janki Michael, RN RN Gladys Brown Ronaldo, RN MASSIMO Cash Pop jp3 Janae Mahmood kb2 Patrizia Queen cc3 Juan Luis, Hope kj1 Corrections: (The following items were deleted from the chart) 05/31 07:41 07:08 BP 98 / 79; Pulse 89bpm; Resp 19bpm; Pulse Ox 100% RA; Temp 98.4F; 81.65 kg; hj Height 6 ft. 1 in.; BMI: 23.7; ea 19:16 19:08 EKG completed in triage. Results shown to MD. kb2 kb2 06/01 07:46 07:00 Reassessment: Resting in bed with eyes closed, respirations even and unlabored, aa5 skin is pink/warm/dry. . aa5 15:32 14:24 Safety checks: Items removed: yes. Door open/sign placed on door: yes. mh5 Family/friend present: no. Sitter present: Yes. mh5 16:36 16:00 Safety checks: Items removed: Door open/sign placed on door: Family/friend mh5 present: Sitter present: mh5
--- NOTE | 2019-05-31 11:13 | EDPHYS ---
Physician Documentation [facility] Name: Tanner Lopes Age: 38 yrs Sex: Male : 1980 Arrival Date: 05/31/2019 Time: 07:01 Bed 18 Private MD: ED Physician Nick Ocampo HPI: 05/31 07:19 This 38 yrs old Male presents to ER via EMS with complaints of Anxiety. rn 07:19 Reports "a lot of people dying around me", reports doesn't have a job, has bills rn without money, daughters birthday coming up and having to plan birthday green party, feeling very anxious. Reports has had thoughts of cutting himself but doesn't think he would actually do it. Denies hallucinations. + hx of drug use. NO homicidal ideation. . Onset: The symptoms/episode began/occurred at an unknown time. Severity of symptoms: At their worst the symptoms were moderate in the emergency department the symptoms are unchanged. The patient has experienced similar episodes in the past. The patient has not recently seen a physician. Historical: - Allergies: 07:10 No Known Allergies; ea - Home Meds: 07:41 gabapentin Oral [Active]; Hydroxyzine Oral [Active]; trazadone [Active]; Vistaril Oral hj [Active]; - PMHx: 07:10 Schizophrenia; Depression; Bipolar disorder; Anxiety; ea - PSHx: 07:10 None; ea - Immunization history:: Adult Immunizations up to date. - Social history:: Smoking status: Patient uses tobacco products, smokes one-half pack cigarettes per day. - Ebola Screening: : No symptoms or risks identified at this time. - Family history:: not pertinent. - Hospitalizations: : No recent hospitalization is reported. ROS: 07:19 Constitutional: Negative for fever, chills, and weight loss, Eyes: Negative for injury, rn pain, redness, and discharge, Neck: Negative for injury, pain, and swelling, Cardiovascular: Negative for chest pain, and edema Respiratory: Negative for shortness of breath, cough, wheezing, and pleuritic chest pain, Abdomen/GI: Negative for abdominal pain, nausea, vomiting, diarrhea, and constipation, MS/Extremity: Negative for injury and deformity, Skin: Negative for injury, rash, and discoloration, Neuro: Negative for headache, weakness, numbness, tingling, and seizure, Psych: Negative for homicidal ideation, and hallucinations. Exam: 07:19 Constitutional: This is a well developed, well nourished patient who is awake, alert, rn sitting upright, seems anxious Head/Face: Normocephalic, atraumatic. Eyes: Pupils equal round and reactive to light, extra-ocular motions intact. Lids and lashes normal. Conjunctiva and sclera are non-icteric and not injected. Cornea within normal limits. Periorbital areas with no swelling, redness, or edema. ENT: MMM Cardiovascular: Regular rate and rhythm. No pulse deficits. Skin: Warm, dry MS/ Extremity: Pulses equal, no cyanosis. Neurovascular intact. Full, normal range of motion. Equal circumference. Neuro: Awake and alert, GCS 15, oriented to person, place, time, and situation. Cranial nerves II-XII grossly intact. Motor strength 5/5 in all extremities. Sensory grossly intact. Cerebellar exam normal. Normal gait. Psych: Awake, alert, with orientation to person, place and time. Appears anxious and agitated. 07:37 ECG was reviewed by the Attending Physician. rn Vital Signs: 07:08 BP 127 / 82; Pulse 89; Resp 19; Temp 98.4; Pulse Ox 100% on R/A; Weight 81.65 kg; hj Height 6 ft. 1 in. (185.42 cm); 11:13 BP 136 / 90; Pulse 88; Resp 18; Temp 98.0; Pulse Ox 100% on R/A; mh5 16:35 BP 132 / 85; Pulse 76; Resp 16; Temp 98.2(TE); Pulse Ox 100% on R/A; mh5 19:58 BP 122 / 76; Pulse 85; Resp 18; Temp 98.1; Pulse Ox 99% on R/A; Pain 0/10; kb2 06/01 00:00 BP 113 / 69; Pulse 65; Resp 18; Temp 97.1; Pulse Ox 99% on R/A; kb2 03:50 BP 121 / 72; Pulse 62; Resp 18; Temp 97.8; Pulse Ox 99% on R/A; kb2 07:50 BP 123 / 69; Pulse 58; Resp 17; Temp 97.7(O); Pulse Ox 100% on R/A; mh5 11:50 BP 125 / 83; Pulse 66; Resp 17; Temp 97.8(O); Pulse Ox 100% on R/A; mh5 05/31 07:08 Body Mass Index 23.75 (81.65 kg, 185.42 cm) hj MDM: 05/31 07:02 Patient medically screened. rn 09:31 ED course: [facility] here to evaluate patient. . rn 11:10 Differential Diagnosis suicidal ideation, homicidal ideation. Data reviewed: vital rn signs, nurses notes, lab test result(s), EKG, and as a result, I will admit patient. Counseling: I had a detailed discussion with the patient and/or guardian regarding: the historical points, exam findings, and any diagnostic results supporting the discharge/admit diagnosis, lab results, the need to transfer to another facility, [facility] does not immediately have the required specialist. Response to treatment: the patient's symptoms have mildly improved after treatment, and as a result, I will admit patient. ED course: After mental health evaluation, deemed appropriate for transfer to inpatient facility. . 06/01 16:41 ED course: Patient became very combative and angry while in ED. Mental health deputy on jr8 scene and will be bringing patient to [facility] for resisting a fiscal officer. Patient will subsequently not be going to [facility] for psychiatric evaluation and will be d/c'd to police custody . 05/31 07:14 Order name: Acetaminophen; Complete Time: : rn 05/31 07:14 Order name: Basic Metabolic Panel; Complete Time: : rn 05/31 07:14 Order name: CBC with Diff; Complete Time: 08: rn 05/31 07:14 Order name: ETOH Level; Complete Time: 08: rn 05/31 07:14 Order name: Hepatic Function; Complete Time: : rn 05/31 07:14 Order name: PT-INR; Complete Time: : rn 05/31 07:14 Order name: Ptt, Activated; Complete Time: 08:54 rn 05/31 07:14 Order name: Salicylate; Complete Time: : rn 05/31 07:14 Order name: Urine Drug Screen; Complete Time: 08: rn 05/31 07:14 Order name: EKG; Complete Time: 07:15 rn 05/31 08:25 Order name: Urine Dipstick--Ancillary (enter results); Complete Time: 08:54 05/31 07:14 Order name: EKG - Nurse/Tech; Complete Time: 07:39 rn 05/31 07:14 Order name: IV Saline Lock; Complete Time: 07:39 rn 05/31 07:14 Order name: Labs collected and sent; Complete Time: 07:39 rn 05/31 07:45 Order name: Diet Heart Healthy; Complete Time: 07:45 05/31 10:26 Order name: Diet Regular; Complete Time: 10:27 [facility] 05/31 11:41 Order name: Diet Finger Food; Complete Time: 11:43 05/31 16:03 Order name: Diet Finger Food; Complete Time: 16:13 06/01 07:05 Order name: Diet Regular; Complete Time: 07:06 [facility] 06/01 08:25 Order name: Diet Regular; Complete Time: 08:26 [facility] 06/01 10:32 Order name: Diet Regular; Complete Time: 10:33 [facility] 06/01 16:17 Order name: Diet Regular; Complete Time: 16:17 rv EC/27 07:37 Rate is 85 beats/min. Rhythm is regular. QRS [place] is Normal. UT interval is normal. QRS rn interval is normal. QT interval is normal. No Q waves. T waves are Normal. No ST changes noted. Clinical impression: Normal ECG. Interpreted by me. Reviewed by me. Administered Medications: 07:15 Drug: Valium 5 mg Route: PO; 07:45 Follow up: Response: No adverse reaction; Anxiety decreased hj 11:11 Drug: Valium 5 mg Route: PO; hj 11:19 Follow up: Response: No adverse reaction 18:28 Drug: Potassium Chloride 40 mEq Route: PO; 19:15 Follow up: Response: No adverse reaction cc3 Disposition: 06/01/19 16:44 Discharged to Law Enforcement. Impression: Bipolar disorder, Schizophrenia, Suicidal ideations. - Condition is Stable. - Medication Reconciliation Form, Thank You Letter, Antibiotic Education, Prescription Opioid Use form. - Follow up: Private Physician; When: As needed; Reason: Recheck today's complaints, Continuance of care, Re-evaluation by your physician. - Problem is new. - Symptoms are unchanged. Signatures: Dispatcher [employer] EDJesus Bush, RN RN Nick Pena MD MD rn Roszak, Josh, PA PA jr8 Kerwin Johnson, RN RN Jennifer Diaz, RN RN Janki Michael, RN RN Patrizia Urban cc3 Corrections: (The following items were deleted from the chart) 06/01 16:42 05/31 11:12 05/31/2019 11:12 Transfer ordered to Psych Facility. Diagnosis is Suicidal jr8 ideations; Homicidal ideations. Reason for transfer: Higher level of care. Accepting physician is . Condition is Stable. Problem is an ongoing problem. Symptoms are unchanged. rn 06/01 16:46 16:44 06/01/2019 16:44 Discharged to Law Enforcement. Impression: Bipolar disorder; hb Schizophrenia; Suicidal ideations. Condition is Stable. Forms are Medication Reconciliation Form, Thank You Letter, Antibiotic Education, Prescription Opioid Use. Follow up: Private Physician; When: As needed; Reason: Recheck today's complaints, Continuance of care, Re-evaluation by your physician. Problem is new. Symptoms are unchanged. jr8
--- NOTE | 2019-05-31 11:20 | EKG ---
Test Date: 2019-05-31 Test Time: 07:36:37 Eyelet Operator: JO ANN MEASUREMENT RESULTS: Intervals: Rate: 85 TN: 148 QRSD: 90 QT: 394 QTc: 468 [place]: P: 77 TN: 148 QRS: 77 T: 54 INTERPRETIVE STATEMENTS: Normal sinus rhythm Normal ECG Compared to ECG 05/05/2019 19:24:42 Myocardial infarct finding no longer present Electronically Signed On 05-31-19 11:19:09 CDT by Joe Miramontes
[2019-05-31] MEDS ORDERED: POTASSIUM CL SA 10 MEQ TAB PO ONE (18:24)
[2019-06-01 17:35] VITALS: O2SAT 100
[2019-06-01 17:37] VITALS: BP 125/83; TEMP 97.8
== END 2019-06-01 16:46 ==
LOC: ER 07:00
DX: F31.9 Bipolar disorder, unspecified (principal); F20.9 Schizophrenia, unspecified; F41.9 Anxiety disorder, unspecified; F17.210 Nicotine dependence, cigarettes, uncomplicated
CPT/HCPCS: 36415; 80048; 80076; 80307; 80320; 80329; 81003; 85025; 85610; 85730; 93005; 99285

== ENCOUNTER 2019-09-13 15:33 | Emergency (ER) | payer SELFPAY ==
--- NOTE | 2019-09-13 15:53 | ER ---
Nurse's Notes [facility] Name: Tanner Lopes Age: 39 yrs Sex: Male : 1980 Arrival Date: 09/13/2019 Time: 15:34 Bed 18 Private MD: Diagnosis: Cutaneous abscess of face Presentation: 09/13 15:35 Presenting complaint: EMS states: pt went to the police department to call us for Fever tw2 blisters to the LEFT upper lip. Transition of care: patient was not received from another setting of care. Onset of symptoms was September 13, 2019. Risk Assessment: Do you want to hurt yourself or someone else? Patient reports no desire to harm self or others. Initial Sepsis Screen: Does the patient meet any 2 criteria? No. Patient's initial sepsis screen is negative. Does the patient have a suspected source of infection? No. Patient's initial sepsis screen is negative. Care prior to arrival: None. 15:35 Method Of Arrival: EMS: [facility] tw2 15:35 Acuity: RADHA 4 tw2 Triage Assessment: 15:39 General: Appears in no apparent distress. unkempt, Behavior is calm, cooperative, tw2 appropriate for age. Pain: Complains of pain in upper vermilion border. Historical: - Allergies: 15:40 No Known Drug Allergies; tw2 - PMHx: 15:40 Anxiety; Bipolar disorder; Depression; Schizophrenia; tw2 - PSHx: 15:40 None; tw2 - Immunization history:: Adult Immunizations. - Social history:: Smoking status: . - Ebola Screening: : Patient denies travel to an Ebola-affected area in the 21 days before illness onset. Screenin:41 Abuse screen: Denies threats or abuse. Nutritional screening: No deficits noted. tw2 Tuberculosis screening: No symptoms or risk factors identified. Fall Risk None identified. Assessment: 15:40 General: Appears in no apparent distress. unkempt, Behavior is calm, cooperative, tw2 appropriate for age. Pain: Complains of pain in mouth and upper vermilion border. Neuro: Level of Consciousness is awake, alert, obeys commands, Oriented to person, place, time, situation. Cardiovascular: Patient's skin is warm and dry. Respiratory: Airway is patent Respiratory effort is even, unlabored, Respiratory pattern is regular, symmetrical. GI: No signs and/or symptoms were reported involving the gastrointestinal system. : No signs and/or symptoms were reported regarding the genitourinary system. EENT: Reports pain and swelling to upper lip. Derm: No signs and/or symptoms reported regarding the dermatologic system. Musculoskeletal: Range of motion: intact in all extremities. Vital Signs: 15:38 BP 134 / 85; Pulse 75; Resp 18; Temp 97.9(O); Pulse Ox 100% on R/A; Weight 83.91 kg tw2 (R); Height 5 ft. 8 in. (172.72 cm); Pain 10/10; 15:38 Body Mass Index 28.13 (83.91 kg, 172.72 cm) tw2 ED Course: 15:34 Patient arrived in ED. tw2 15:34 Bed in low position. Call light in reach. tw2 15:35 Triage completed. tw2 15:39 Arm band placed on. tw2 15:41 [facility] kb 15:41 Nick Ocampo MD is Attending Physician. kb 16:04 No provider procedures requiring assistance completed. Patient did not have IV access sv during this emergency room visit. Administered Medications: 16:03 Drug: Bactrim (160 mg-800 mg (DS) 1 tablet Route: PO; sv 16:04 Follow up: Response: Medication administered at discharge. sv 16:03 Drug: Motrin 800 mg Route: PO; sv 16:03 Follow up: Response: Medication administered at discharge. sv Outcome: 15:52 Discharge ordered by MD. kb 16:04 Discharged to home ambulatory. sv 16:04 Condition: stable 16:04 Discharge instructions given to patient, Instructed on discharge instructions, follow up and referral plans. medication usage, Demonstrated understanding of instructions, follow-up care, medications, Prescriptions given X 1. 16:05 Patient left the ED. sv Signatures: Prema Mcknight FNP-C FNP-Ckb Verde, Stephanie, RN RN Karissa Sheth RN RN tw2 Corrections: (The following items were deleted from the chart) 16:05 16:04 Discharge instructions given to patient, Instructed on discharge instructions, sv follow up and referral plans. medication usage, Demonstrated understanding of instructions, follow-up care, medications, Prescriptions given X 2, sv
--- NOTE | 2019-09-13 15:53 | EDPHYS ---
Physician Documentation [facility] Name: Tanner Lopes Age: 39 yrs Sex: Male : 1980 Arrival Date: 09/13/2019 Time: 15:34 Bed 18 Private MD: ED Physician Nick Ocampo HPI: 09/13 15:47 This 39 yrs old Male presents to ER via EMS with complaints of Fever blisters kb to LEFT upper lip. 15:48 The patient presents with an abscess of the upper lip. Description: draining, kb erythematous, swollen. Onset: The symptoms/episode began/occurred 2 day(s) ago. Possible cause(s): unknown. Associated signs and symptoms: Pertinent positives: drainage, erythema, swelling, Pertinent negatives: foreign body sensation, fever, headache, nausea, shortness of breath, vomiting. Modifying factors: the symptoms are alleviated by nothing, the symptoms are aggravated by pressure, touching. Severity of symptoms: At their worst the symptoms were moderate, in the emergency department the symptoms are unchanged. The patient has experienced similar episodes in the past, a few times. The patient has not recently seen a physician. 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 I've been pushing on it and pus comes out." . Historical: - Allergies: 15:40 No Known Drug Allergies; tw2 - PMHx: 15:40 Anxiety; Bipolar disorder; Depression; Schizophrenia; tw2 - PSHx: 15:40 None; tw2 - Immunization history:: Adult Immunizations. - Social history:: Smoking status: . - Ebola Screening: : Patient denies travel to an Ebola-affected area in the 21 days before illness onset. ROS: 15:47 Constitutional: Negative for fever, chills, and weight loss, ENT: Negative for injury, kb pain, and discharge, Neck: Negative for injury, pain, and swelling, Cardiovascular: Negative for chest pain, palpitations, and edema, Respiratory: Negative for shortness of breath, cough, wheezing, and pleuritic chest pain, Abdomen/GI: Negative for abdominal pain, nausea, vomiting, diarrhea, and constipation, Back: Negative for injury and pain, MS/Extremity: Negative for injury and deformity, Neuro: Negative for headache, weakness, numbness, tingling, and seizure. 15:47 Skin: Positive for abscess, of the upper lip. Exam: 15:47 Constitutional: This is a well developed, well nourished patient who is awake, alert, kb and in no acute distress. Head/Face: Normocephalic, atraumatic. Neck: Trachea midline, no thyromegaly or masses palpated, and no cervical lymphadenopathy. Supple, full range of motion without nuchal rigidity, or vertebral point tenderness. No Meningismus. Chest/axilla: Normal chest wall appearance and motion. Nontender with no deformity. No lesions are appreciated. Cardiovascular: Regular rate and rhythm with a normal S1 and S2. No gallops, murmurs, or rubs. Normal PMI, no JVD. No pulse deficits. Respiratory: Lungs have equal breath sounds bilaterally, clear to auscultation and percussion. No rales, rhonchi or wheezes noted. No increased work of breathing, no retractions or nasal flaring. Abdomen/GI: Soft, non-tender, with normal bowel sounds. No distension or tympany. No guarding or rebound. No evidence of tenderness throughout. MS/ Extremity: Pulses equal, no cyanosis. Neurovascular intact. Full, normal range of motion. Neuro: Awake and alert, GCS 15, oriented to person, place, time, and situation. Cranial nerves II-XII grossly intact. Motor strength 5/5 in all extremities. Sensory grossly intact. Cerebellar exam normal. Normal gait. 15:47 Skin: abscess, that is moderate sized, of the upper lip, with drainage. Vital Signs: 15:38 BP 134 / 85; Pulse 75; Resp 18; Temp 97.9(O); Pulse Ox 100% on R/A; Weight 83.91 kg tw2 (R); Height 5 ft. 8 in. (172.72 cm); Pain 10/10; 15:38 Body Mass Index 28.13 (83.91 kg, 172.72 cm) tw2 MDM: 15:41 Patient medically screened. kb 15:46 Data reviewed: vital signs, nurses notes. Data interpreted: Pulse oximetry: on room air kb is 100 %. Interpretation: normal. Counseling: I had a detailed discussion with the patient and/or guardian regarding: the historical points, exam findings, and any diagnostic results supporting the discharge/admit diagnosis, the need for outpatient follow up, a general surgeon, to return to the emergency department if symptoms worsen or persist or if there are any questions or concerns that arise at home. 15:50 ED course: Educated to take antibiotics as prescribed. Educated to use warm compresses kb to help drain from opening that is already there.. Administered Medications: 16:03 Drug: Bactrim (160 mg-800 mg (DS) 1 tablet Route: PO; sv 16:04 Follow up: Response: Medication administered at discharge. sv 16:03 Drug: Motrin 800 mg Route: PO; sv 16:03 Follow up: Response: Medication administered at discharge. sv Disposition: 16:59 Co-signature as Attending Physician, Nick Ocampo MD. rn Disposition: 09/13/19 15:52 Discharged to Home. Impression: Cutaneous abscess of face. - Condition is Stable. - Discharge Instructions: Skin Abscess, [id number]. - Prescriptions for Bactrim DS 800- 160 mg Oral Tablet - take 1 tablet by ORAL route every 12 hours for 10 days; 20 tablet. - Medication Reconciliation Form, Thank You Letter, Antibiotic Education, Prescription Opioid Use form. - Follow up: Emergency Department; When: As needed; Reason: Worsening of condition. Follow up: Private Physician; When: 2 - 3 days; Reason: Recheck today's complaints, Continuance of care, Re-evaluation by your physician. Signatures: Prema Mcknight, CARY LEROY-Char Brown, RN Nick Louise MD MD rn Wise, Tara, RN RN tw2 Corrections: (The following items were deleted from the chart) 16:05 15:52 09/13/2019 15:52 Discharged to Home. Impression: Cutaneous abscess of face. sv Condition is Stable. Forms are Medication Reconciliation Form, Thank You Letter, Antibiotic Education, Prescription Opioid Use. Follow up: Emergency Department; When: As needed; Reason: Worsening of condition. Follow up: Private Physician; When: 2 - 3 days; Reason: Recheck today's complaints, Continuance of care, Re-evaluation by your physician. kb
[2019-09-13] MEDS ORDERED: SMZ./TMP. 800/160 MG TABLET ONE (15:57)
[2019-09-13] MEDS ORDERED: IBUPROFEN 400 MG TAB ONE (16:02)
[2019-09-13 19:23] VITALS: BP 134/85; TEMP 97.9; O2SAT 100
== END 2019-09-13 16:05 | disposition home or self-care (01) ==
LOC: ER 15:33
DX: L02.01 Cutaneous abscess of face (principal)
CPT/HCPCS: 99283

== ENCOUNTER 2019-10-09 09:56 | Emergency (ER) | payer SELFPAY ==
[2019-10-09 11:06] LABS: Basophils % 0.1 % (0-1.3); Hematocrit 41.6 % (39.6-49.0); Lymphocytes % 10.1 % (15.3-44.8); MPV 7.8 fL (7.6-11.3); RBC Red Blood Cell Count 4.49 M/uL (4.33-5.43)
[2019-10-09 11:07] LABS: Protime INR 1.02
[2019-10-09] MEDS ORDERED: NA CHLORIDE 0.9% 1,000 ML ONE (11:28)
[2019-10-09 11:37] LABS: Barbiturates NEGATIVE (NEGATIVE); Benzodiazepines NEGATIVE (NEGATIVE); Cocaine NEGATIVE (NEGATIVE); METHAMPHETAM POSITIVE (NEGATIVE); Methadone NEGATIVE (NEGATIVE); Opiates NEGATIVE (NEGATIVE); Phencyclidine NEGATIVE (NEGATIVE); THC Cannibis POSITIVE (NEGATIVE)
[2019-10-09 11:37] LABS: ALT/SGPT 28 U/L (12-78); AST/SGOT 21 U/L (15-37); Albumin 4.2 g/dL (3.4-5.0); Alkaline Phosphatase 90 U/L (45-117); BUN Blood Urea Nitrogen 9 mg/dL (7-18); Bicarbonate 29 mmol/L (21-32); Bilirubin Direct 0.1 mg/dL (0-0.2); Bilirubin Total 0.5 mg/dL (0.2-1.0); Glucose Level 96 mg/dL (74-106); Potassium 3.5 mmol/L (3.5-5.1); Protein, Total 8.4 g/dL (6.4-8.2); Sodium Level 140 mmol/L (136-145)
--- NOTE | 2019-10-09 12:58 | ER ---
Nurse's Notes [facility] Name: Tanner Lopes Age: 39 yrs Sex: Male : 1980 Arrival Date: 10/09/2019 Time: 09:57 Bed 18 Private MD: Diagnosis: Bipolar disorder;Abuse of non-psychoactive substances Presentation: 10/09 10:10 Presenting complaint: Patient states: "I am here for anxiety. These people just won't ca1 let me be. My druggy roommates are playing on my paranoia" When asked, "Do you want to hurt yourself or anybody?", he answered, "Myself NO. Others am trying not to go there. I have thoughts of hurting others but I don't want to go there. I don't want to lose my freedom". Transition of care: patient was not received from another setting of care. Onset of symptoms was October 09, 2019. Risk Assessment: Do you want to hurt yourself or someone else? Patient reports desire/thoughts of hurting themselves or someone else. Provider notified. Initial Sepsis Screen: Does the patient meet any 2 criteria? No. Patient's initial sepsis screen is negative. Does the patient have a suspected source of infection? No. Patient's initial sepsis screen is negative. Care prior to arrival: None. 10:10 Method Of Arrival: Ambulatory ca1 10:10 Acuity: RADHA 2 ca1 Triage Assessment: 10:20 General: Appears in no apparent distress. unkempt, Behavior is cooperative, appropriate bp for age, anxious. Pain: Denies pain. EENT: No deficits noted. Neuro: No deficits noted. Cardiovascular: No deficits noted. Respiratory: No deficits noted. GI: No signs and/or symptoms were reported involving the gastrointestinal system. : No signs and/or symptoms were reported regarding the genitourinary system. Derm: No deficits noted. Musculoskeletal: No deficits noted. Historical: - Allergies: 10:16 No Known Allergies; ca1 - Home Meds: 10:16 None [Active]; ca1 - PMHx: 10:16 Anxiety; Bipolar disorder; Depression; Schizophrenia; ca1 - PSHx: 10:16 None; ca1 - Immunization history:: Adult Immunizations not up to date, Pneumococcal vaccine is not up to date, Flu vaccine is not up to date. - Social history:: Smoking status: Patient uses tobacco products, smokes one pack cigarettes per day. Patient uses alcohol, 3-[address] drugs, marijuana, Methamphetamine (Meth) caffeine, The patient lives with roommate, The patient is unemployed. - Ebola Screening: : Patient negative for fever greater than or equal to 101.5 degrees Fahrenheit, and additional compatible Ebola Virus Disease symptoms Patient denies exposure to infectious person Patient denies travel to an Ebola-affected area in the 21 days before illness onset No symptoms or risks identified at this time. - Family history:: not pertinent. Screenin:20 Abuse screen: Denies threats or abuse. Denies injuries from another. Nutritional bp screening: No deficits noted. Tuberculosis screening: No symptoms or risk factors identified. Fall Risk None identified. Assessment: 10:20 General: SEE TRIAGE NOTE. bp 12:13 Reassessment: PT RESTLESS AND ANXIOUS, DECLINING TO KEEP MONITORING EQUIPMENT IN PLACE. bp 13:34 Reassessment: PT ATTEMPTING TO REFUSE D/C 2/[address] PT REORIENTED TO HOSPITAL PROCESS AND D/C HOME AMBULATORY, DX WITH SUBSTANCE ABUSE. Psych: 10:19 Subjective: Patient's mood is hopeless, Delusions are denied, Hallucinations are denied ca1 Having thoughts of pt states, "I want to hurt them but not kill them. I want to make them suffer because they are making me suffer". Objective: Patient is cooperative, Speech is normal. Interventions: Removed personal items and placed in bag. Patient placed in hospital gown. Searched person for dangerous items. Urine collected and sent for urine drug test. Belonging list filled out. Suicide Risk Assessment: Sad Person Scale: Sex of patient: Male: Score 1 point. Age of patient: Score 0 point if patient falls outside of specified age parameters. Depression: Score 1 point if signs of depression are present. Previous Attempt: Score 1 point if patient has previously attempted suicide. Substance Abuse: Score 1 point if patient abuses alcohol or drugs. Rational Thinking: Score 0 point if patient has rational thinking. Social Support: Score 1 point if social support is lacking and/or unavailable. Organized Plan: Score 0 if patient did not have an organized plan in place. Relationship: Score 1 point if patient is , , , or for a single male Chronic Sickness: Score 0 point if patient does not have a chronic illness, debilitating, or severe disorder. TOTAL POINTS: If total points are 5-6, proposed clinical action is to strongly consider hospitalization, depending upon confidence in the follow-up arrangement. Implement suicide precautions. Safety Checks: Personal items have been removed. Door is open. No visitors are present at this time. Patient uses 3-4 beers a day of beer, daily. Last use was 1 days ago. Patient uses marijuana Patient uses methamphetamines. Vital Signs: 10:16 BP 151 / 85; Pulse 86; Resp 17 S; Temp 98.2(TE); Pulse Ox 100% on R/A; Weight 83.91 kg ca1 (R); Height 6 ft. 1 in. (185.42 cm) (R); Pain 0/10; 12:14 BP 140 / 82; Pulse 70; Resp 16; Pulse Ox 94% ; bp 13:35 BP 135 / 85; Pulse 75; Resp 16; Temp 98.5; Pulse Ox 100% ; bp 10:16 Body Mass Index 24.41 (83.91 kg, 185.42 cm) ca1 ED Course: 09:57 Patient arrived in ED. rg4 10:01 Davonte Hernandez MD is Attending Physician. allen 10:07 Carter Snow, MASSIMO is Primary Nurse. bp 10:15 Triage completed. ca1 10:16 Arm band placed on right wrist. ca1 10:20 Patient has correct armband on for positive identification. Placed in gown. Bed in low bp position. Call light in reach. Side rails up X2. 11:20 Inserted saline lock: 20 gauge in right forearm, using aseptic technique. Blood bp collected. 11:40 IV discontinued, IV INFILTRATED. bp 13:36 No provider procedures requiring assistance completed. bp Administered Medications: 11:15 Drug: NS 0.9% 1000 ml Route: IV; Rate: 1 bolus; Site: right forearm; bp 11:40 Follow up: IV Status: IV infiltrated; IV Intake: 150ml bp Intake: 11:40 IV: 150ml; Total: 150ml. bp Outcome: 12:56 Discharge ordered by . allen 13:36 Discharged to home ambulatory. bp 13:36 Condition: stable 13:36 Discharge instructions given to patient, Instructed on discharge instructions, follow up and referral plans. Demonstrated understanding of instructions, follow-up care. 13:37 Patient left the ED. bp Signatures: Davonte Hernandez MD MD cha Garcia, Rubi rg4 Carter Snow, RN RN bp Nancy Tapia RN RN ca1
--- NOTE | 2019-10-09 12:59 | EDPHYS ---
Physician Documentation [facility] Name: Tanner Lopes Age: 39 yrs Sex: Male : 1980 Arrival Date: 10/09/2019 Time: 09:57 Bed 18 Private MD: ED Physician Davonte Hernandez HPI: 10/09 11:00 This 39 yrs old Male presents to ER via Ambulatory with complaints of allen Depression, Anxiety. 11:00 The patient presents to the emergency department with anxiety, depression, over unknown allen circumstances, a history of substance abuse, Type: methamphetamines, the amount of abuse is unknown. Past psychiatric history: Prior diagnosis: addiction history, bipolar disorder, depression, schizophrenia. Severity of symptoms: At their worst the symptoms were mild moderate in the emergency department the symptoms are unchanged. The patient has experienced similar episodes in the past, multiple times. Historical: - Allergies: 10:16 No Known Allergies; ca1 - Home Meds: 10:16 None [Active]; ca1 - PMHx: 10:16 Anxiety; Bipolar disorder; Depression; Schizophrenia; ca1 - PSHx: 10:16 None; ca1 - Immunization history:: Adult Immunizations not up to date, Pneumococcal vaccine is not up to date, Flu vaccine is not up to date. - Social history:: Smoking status: Patient uses tobacco products, smokes one pack cigarettes per day. Patient uses alcohol, 3-[address] drugs, marijuana, Methamphetamine (Meth) caffeine, The patient lives with roommate, The patient is unemployed. - Ebola Screening: : Patient negative for fever greater than or equal to 101.5 degrees Fahrenheit, and additional compatible Ebola Virus Disease symptoms Patient denies exposure to infectious person Patient denies travel to an Ebola-affected area in the 21 days before illness onset No symptoms or risks identified at this time. - Family history:: not pertinent. ROS: 11:00 Constitutional: Negative for fever, chills, and weight loss, Eyes: Negative for injury, allen pain, redness, and discharge, ENT: Negative for injury, pain, and discharge, Neck: Negative for injury, pain, and swelling, Cardiovascular: Negative for chest pain, palpitations, and edema, Respiratory: Negative for shortness of breath, cough, wheezing, and pleuritic chest pain, Abdomen/GI: Negative for abdominal pain, nausea, vomiting, diarrhea, and constipation, Back: Negative for injury and pain, : Negative for injury, bleeding, discharge, and swelling, MS/Extremity: Negative for injury and deformity, Skin: Negative for injury, rash, and discoloration, Neuro: Negative for headache, weakness, numbness, tingling, and seizure, Allergy/Immunology: Negative for hives, rash, and allergies, Endocrine: Negative for neck swelling, polydipsia, polyuria, polyphagia, and marked weight changes, Hematologic/Lymphatic: Negative for swollen nodes, abnormal bleeding, and unusual bruising. 11:00 Psych: Positive for anxiety, depression. Exam: 11:00 Constitutional: This is a well developed, well nourished patient who is awake, alert, allen and in no acute distress. Head/Face: Normocephalic, atraumatic. Eyes: Pupils equal round and reactive to light, extra-ocular motions intact. Lids and lashes normal. Conjunctiva and sclera are non-icteric and not injected. Cornea within normal limits. Periorbital areas with no swelling, redness, or edema. ENT: Nares patent. No nasal discharge, no septal abnormalities noted. Tympanic membranes are normal and external auditory canals are clear. Oropharynx with no redness, swelling, or masses, exudates, or evidence of obstruction, uvula midline. Mucous membranes moist. Neck: Trachea midline, no thyromegaly or masses palpated, and no cervical lymphadenopathy. Supple, full range of motion without nuchal rigidity, or vertebral point tenderness. No Meningismus. Chest/axilla: Normal chest wall appearance and motion. Nontender with no deformity. No lesions are appreciated. Cardiovascular: Regular rate and rhythm with a normal S1 and S2. No gallops, murmurs, or rubs. Normal PMI, no JVD. No pulse deficits. Respiratory: Lungs have equal breath sounds bilaterally, clear to auscultation and percussion. No rales, rhonchi or wheezes noted. No increased work of breathing, no retractions or nasal flaring. Abdomen/GI: Soft, non-tender, with normal bowel sounds. No distension or tympany. No guarding or rebound. No evidence of tenderness throughout. Back: No spinal tenderness. No costovertebral tenderness. Full range of motion. Skin: Warm, dry with normal turgor. Normal color with no rashes, no lesions, and no evidence of cellulitis. MS/ Extremity: Pulses equal, no cyanosis. Neurovascular intact. Full, normal range of motion. Neuro: Awake and alert, GCS 15, oriented to person, place, time, and situation. Cranial nerves II-XII grossly intact. Motor strength 5/5 in all extremities. Sensory grossly intact. Cerebellar exam normal. Normal gait. 11:00 Psych: Behavior/mood is depressed, Affect is animated, Oriented to person, place, time, Patient has no thoughts/intents to harm self or others. Judgement / Insight is normal. Memory is normal. Delusions/hallucinations are not present. Vital Signs: 10:16 BP 151 / 85; Pulse 86; Resp 17 S; Temp 98.2(TE); Pulse Ox 100% on R/A; Weight 83.91 kg ca1 (R); Height 6 ft. 1 in. (185.42 cm) (R); Pain 0/10; 12:14 BP 140 / 82; Pulse 70; Resp 16; Pulse Ox 94% ; bp 13:35 BP 135 / 85; Pulse 75; Resp 16; Temp 98.5; Pulse Ox 100% ; bp 10:16 Body Mass Index 24.41 (83.91 kg, 185.42 cm) ca1 MDM: 10:28 Patient medically screened. [facility] 11:03 Data reviewed: vital signs, nurses notes, EMS record, lab test result(s), EKG. [facility] 10/09 10:02 Order name: Acetaminophen; Complete Time: 11:56 [facility] 10/09 10:02 Order name: Basic Metabolic Panel; Complete Time: 11:56 [facility] 10/09 10:02 Order name: CBC with Diff; Complete Time: 11:56 [facility] 10/09 10:02 Order name: ETOH Level; Complete Time: 11:56 [facility] 10/09 10:02 Order name: Hepatic Function; Complete Time: 11:56 [facility] 10/09 10:02 Order name: PT-INR; Complete Time: 11:56 [facility] 10/09 10:02 Order name: Ptt, Activated; Complete Time: 11:56 [facility] 10/09 10:02 Order name: Salicylate; Complete Time: 11:56 [facility] 10/09 10:02 Order name: Urine Drug Screen; Complete Time: 11:56 [facility] 10/09 10:02 Order name: EKG; Complete Time: 10:03 [facility] 10/09 11:02 Order name: Glucose, Ancillary Testing; Complete Time: 11:56 EDMS 10/09 12:33 Order name: Diet Regular; Complete Time: 12:34 bp 10/09 10:02 Order name: EKG - Nurse/Tech; Complete Time: 10:56 [facility] 10/09 10:02 Order name: IV Saline Lock; Complete Time: 10:56 [facility] 10/09 10:02 Order name: Labs collected and sent; Complete Time: 10:56 [facility] Administered Medications: 11:15 Drug: NS 0.9% 1000 ml Route: IV; Rate: 1 bolus; Site: right forearm; bp 11:40 Follow up: IV Status: IV infiltrated; IV Intake: 150ml bp Disposition: 10/09/19 12:56 Discharged to Home. Impression: Bipolar disorder, Abuse of non-psychoactive substances. - Condition is Stable. - Discharge Instructions: Stimulant Use Disorder-Amphetamines, Bipolar Disorder, Substance Use Disorder, Stimulant Use Disorder-Methamphetamines. - Medication Reconciliation Form, Thank You Letter, Antibiotic Education, Prescription Opioid Use form. - Follow up: Private Physician; When: 2 - 3 days; Reason: Recheck today's complaints, Continuance of care, Re-evaluation by your physician. - Problem is new. - Symptoms have improved. Signatures: Dispatcher [employer] [facility] Davonte Hernandez MD MD cha Peltier, Brian RN RN Nancy Gonzalez RN RN ca1 Corrections: (The following items were deleted from the chart) 10:35 10:02 Urine Test ordered. [facility] bp 13:37 12:56 10/09/2019 12:56 Discharged to Home. Impression: Bipolar disorder; Abuse of bp non-psychoactive substances. Condition is Stable. Discharge Instructions: Stimulant Use Disorder-Amphetamines, Bipolar Disorder, Substance Use Disorder, Stimulant Use Disorder-Methamphetamines. Forms are Medication Reconciliation Form, Thank You Letter, Antibiotic Education, Prescription Opioid Use. Follow up: Private Physician; When: 2 - 3 days; Reason: Recheck today's complaints, Continuance of care, Re-evaluation by your physician. Problem is new. Symptoms have improved. [facility]
[2019-10-09 13:59] VITALS: BP 135/85; TEMP 98.5; O2SAT 100
--- NOTE | 2019-10-10 05:32 | EKG ---
Test Date: 2019-10-09 Test Time: 10:43:26 Director Of Medical Review: ROSS MEASUREMENT RESULTS: Intervals: Rate: 81 SD: 152 QRSD: 88 QT: 380 QTc: 441 [place]: P: 81 SD: 152 QRS: 86 T: 66 INTERPRETIVE STATEMENTS: Normal sinus rhythm with sinus arrhythmia Possible Left atrial enlargement Borderline ECG Compared to ECG 05/31/2019 07:36:37 No significant changes Electronically Signed On 10-10-19 05:30:41 [employer] GU[employer] by Carl Barnes
== END 2019-10-09 13:37 | disposition home or self-care (01) ==
LOC: ER 09:56
DX: F55.8 Abuse of other non-psychoactive substances (principal); F17.210 Nicotine dependence, cigarettes, uncomplicated
CPT/HCPCS: 36415; 80048; 80076; 80307; 80320; 80329; 82947; 85025; 85610; 85730; 93005; 99284; J7030

== ENCOUNTER 2020-05-09 14:41 | Emergency (ER) | payer SELFPAY ==
[2020-05-09] MEDS ORDERED: NA CHLORIDE 0.9% 1,000 ML ONE ×2 (15:46→17:22)
[2020-05-09 16:02] LABS: Absolute Lymphocytes (CBC) 0.9 K/uL (0.7-4.9); Basophils % 0.5 % (0-1.3); Hematocrit 35.4 % (39.6-49.0); Lymphocytes % 11.1 % (15.3-44.8); MPV 7.1 fL (7.6-11.3); RBC Red Blood Cell Count 3.72 M/uL (4.33-5.43)
[2020-05-09 16:08] LABS: Protime INR 1.04
[2020-05-09 16:52] LABS: ALT/SGPT 34 U/L (12-78); AST/SGOT 51 U/L (15-37); Albumin 3.6 g/dL (3.4-5.0); Alkaline Phosphatase 75 U/L (45-117); BUN Blood Urea Nitrogen 10 mg/dL (7-18); Bicarbonate 29 mmol/L (21-32); Bilirubin Direct 0.2 mg/dL (0-0.2); Bilirubin Total 0.8 mg/dL (0.2-1.0); Glucose Level 102 mg/dL (74-106); Potassium 3.1 mmol/L (3.5-5.1); Protein, Total 7.1 g/dL (6.4-8.2); Sodium Level 144 mmol/L (136-145)
[2020-05-09 16:58] LABS: Creatine Phosphokinase 1565 U/L (39-308)
[2020-05-09] MEDS ORDERED: POTASSIUM 25 MEQ EFFERV TAB ONE (17:22)
--- NOTE | 2020-05-09 17:22 | RAD REPORT ---
EXAM DESCRIPTION: CT - Head Brain Wo Cont - 05/09/2020 5:11 pm CLINICAL HISTORY: MENTAL STATUS CHANGE COMPARISON: Head Brain Wo Cont dated 01/02/2018 TECHNIQUE: Axial 5 mm thick images of the head were obtained without IV contrast. All CT scans are performed using dose optimization technique as appropriate and may include automated exposure control or mA/KV adjustment according to patient size. FINDINGS: No intracranial hemorrhage, mass, edema or shift of mid-line structures. No acute infarcti on changes seen. No abnormal extra-axial fluid collections. Ventricles are normal. Mastoid air cells are clear. Paranasal sinus mucosal thickening present without air-fluid level. No acute bony findings. IMPRESSION: Negative non-contrast CT head examination for acute finding.
--- NOTE | 2020-05-09 18:00 | ER ---
Nurse's Notes [facility] Name: Tanner Lopes Age: 39 yrs Sex: Male : 1980 Arrival Date: 05/09/2020 Time: 14:42 Bed 3 Private MD: Diagnosis: Other psychoactive substance abuse;Rhabdomyolysis;Laceration without foreign body of unspecified hand-multiple, bilateral Presentation: 05/09 14:42 Chief complaint: EMS states: Found in a hot garage on the ground, possible seizure. ll1 Oriented x 1 upon EMS arrival. Smoked synthetic marijuana 30 min prior to event. No pain. States this has happened before in the past. Coronavirus screen: Client denies travel out of the [place] in the last 14 days. At this time, the client does not indicate any symptoms associated with coronavirus-19. Ebola Screen: Patient denies travel to an Ebola-affected area in the 21 days before illness onset. Initial Sepsis Screen: Does the patient meet any 2 criteria?. Risk Assessment: Do you want to hurt yourself or someone else? Patient reports no desire to harm self or others. Onset of symptoms was May 09, 2020. 14:42 Method Of Arrival: EMS: [facility] 14:42 Acuity: RADHA 3 ll1 14:48 Initial Sepsis Screen: Does the patient have a suspected source of infection? No. ll1 Patient's initial sepsis screen is negative. Triage Assessment: 14:45 General: Appears in no apparent distress. Behavior is calm, cooperative. ll1 Historical: - Allergies: 14:45 No Known Drug Allergies; ll1 - PMHx: 14:45 Bipolar disorder; Depression; Schizophrenia; Anxiety; ll1 - PSHx: 14:45 None; ll1 - Immunization history:: Adult Immunizations up to date. - Social history:: Smoking status: Patient reports the use of cigarette tobacco products, smokes one-half pack cigarettes per day, Patient uses alcohol, on a daily basis. synthetic marijuana. Screenin:47 Abuse screen: Denies threats or abuse. Nutritional screening: No deficits noted. ll1 Tuberculosis screening: No symptoms or risk factors identified. Fall Risk Fall in past 12 months (25 points). IV access (20 points). Gait- Impaired (20 pts.). Mental Status- Overestimates/Forgets Limitations (15 pts.). Total Johnson Fall Scale indicates High Risk Score (45 or more points). Fall prevention measures have been instituted. Side Rails Up X 2 Frequent Obs/Assessments Occuring As available patient and family educated on Fall Prevention Program and Strategies. Assessment: 14:46 General: Appears in no apparent distress. Behavior is calm, cooperative. Pain: Denies ll1 pain. Neuro: Level of Consciousness is awake, alert, obeys commands, Oriented to person, place, time, situation, Appropriate for age Material Control Associate are equal bilaterally Moves all extremities. Full function Gait is steady, Speech is normal, Facial symmetry appears normal, Pupils are PERRLA, Reports possible seizure. Denies headache. Cardiovascular: No deficits noted. Respiratory: No deficits noted. GI: No deficits noted. Derm: Reports abrasion left hand. Injury Description: fall. 15:45 Reassessment: Patient appears in no apparent distress at this time. No changes from ll1 previously documented assessment. Patient and/or family updated on plan of care and expected duration. Pain level reassessed. Patient is alert, oriented x 3, equal unlabored respirations, skin warm/dry/pink. 16:45 Reassessment: Patient appears in no apparent distress at this time. No changes from ll1 previously documented assessment. Patient and/or family updated on plan of care and expected duration. Pain level reassessed. Patient is alert, oriented x 3, equal unlabored respirations, skin warm/dry/pink. 17:45 Reassessment: Patient appears in no apparent distress at this time. No changes from ll1 previously documented assessment. Patient and/or family updated on plan of care and expected duration. Pain level reassessed. Patient is alert, oriented x 3, equal unlabored respirations, skin warm/dry/pink. Vital Signs: 14:42 BP 105 / 70; Pulse 90; Resp 18; Temp 98.3; Pulse Ox 97% ; Pain 5/10; ll1 16:00 BP 110 / 71; Pulse 85; Resp 18; Pulse Ox 97% ; ll1 17:00 BP 115 / 87; Pulse 78; Resp 18; Pulse Ox 98% ; ll1 18:25 BP 123 / 89; Pulse 64; Resp 18; Pulse Ox 100% ; Pain 0/10; ll1 [place] Coma Score: 14:45 Eye Response: spontaneous(4). Verbal Response: oriented(5). Motor Response: obeys ll1 commands(6). Total: 15. ED Course: 14:42 Patient arrived in ED. ll1 14:44 Triage completed. ll1 14:45 Arm band placed on Patient placed in an exam room, on a stretcher. ll1 14:45 Seizure precautions initiated. ll1 14:46 Maintain EMS IV. Dressing intact. Good blood return noted. Site clean \T\ dry. Gauge \T\ ll 1 site: 20 G L AC. 14:49 Rebecca Montes RN is Primary Nurse. ll1 15:34 Davonte Sullivan PA is PHCP. cp 15:34 William Romero MD is Attending Physician. cp 17:11 CT Head Brain wo Cont In Process Unspecified. EDMS 18:15 Wound care: to abrasion, located on multiple abrasions to left hand was cleaned with ll1 Hibiclens, soaked in Hibiclens solution, dressed with Neosporin, band aid. 18:28 IV discontinued, intact, bleeding controlled, No redness/swelling at site. Pressure ll1 dressing applied. 18:28 No provider procedures requiring assistance completed. ll1 Administered Medications: 15:48 Drug: NS 0.9% 1000 ml Route: IV; Rate: 1 bolus; Site: left antecubital; ll1 17:10 Follow up: Response: No adverse reaction; RASS: Alert and Calm (0); IV Status: ll1 Completed infusion; IV Intake: 1000ml 17:22 Drug: NS 0.9% 1000 ml Route: IV; Rate: 1 bolus; Site: left antecubital; ll1 18:25 Follow up: Response: No adverse reaction; RASS: Alert and Calm (0); IV Status: ll1 Completed infusion; IV Intake: 1000ml 17:22 Drug: Potassium Effervescent Tablet 50 mEq Route: PO; ll1 18:28 Follow up: Response: No adverse reaction; RASS: Alert and Calm (0) ll1 Intake: 17:10 IV: 1000ml; Total: 1000ml. ll1 18:25 IV: 1000ml; Total: 2000ml. ll1 Outcome: 17:59 Discharge ordered by . cp 18:28 Discharged to home ambulatory. ll1 18:28 Condition: stable 18:28 Discharge instructions given to patient, Instructed on discharge instructions, follow up and referral plans. wound care, Demonstrated understanding of instructions, follow-up care, wound care. 18:29 Patient left the ED. ll1 Signatures: Dispatcher [employer] EDMS Davonte Sullivan PA PA cp Lewis, Lynsay, RN RN ll1 Corrections: (The following items were deleted from the chart) 19:40 19:40 Seizure precautions initiated. 1 1
--- NOTE | 2020-05-09 18:00 | EDPHYS ---
Physician Documentation [facility] Name: Tanner Lopes Age: 39 yrs Sex: Male : 1980 Arrival Date: 05/09/2020 Time: 14:42 Bed 3 Private MD: ED Physician William Romero HPI: 05/09 15:40 This 39 yrs old Male presents to ER via EMS with complaints of Probable cp Seizure. 15:40 The patient presents with decreased responsiveness, found on ground in garage. Onset: cp The symptoms/episode began/occurred today. Possible causes: patient admits to smoking synthetic marijuana . Associated signs and symptoms: Pertinent positives: confusion, Pertinent negatives: abdominal pain, chest pain, headache, seizure activity. Current symptoms: In the emergency department the patient's symptoms have improved, mildly, is more alert. Patient's baseline: Neuro: alert and fully oriented, Motor: no deficits, Ambulation: walks without assistance, Speech: normal. Historical: - Allergies: 14:45 No Known Drug Allergies; ll1 - PMHx: 14:45 Bipolar disorder; Depression; Schizophrenia; Anxiety; ll1 - PSHx: 14:45 None; ll1 - Immunization history:: Adult Immunizations up to date. - Social history:: Smoking status: Patient reports the use of cigarette tobacco products, smokes one-half pack cigarettes per day, Patient uses alcohol, on a daily basis. synthetic marijuana. ROS: 15:45 Constitutional: Negative for fever, poor PO intake. cp 15:45 Eyes: Negative for injury, pain, redness, and discharge. cp 15:45 ENT: Negative for ear pain, sore throat, difficulty swallowing, difficulty handling secretions. 15:45 Neck: Negative for pain with movement, pain at rest, tenderness, bony tenderness. 15:45 Cardiovascular: Negative for chest pain, edema. 15:45 Respiratory: Negative for cough, shortness of breath, wheezing. 15:45 Abdomen/GI: Negative for abdominal pain, nausea, vomiting, and diarrhea. 15:45 Skin: Positive for of the right hand and left hand, multiple superficial lacerations. 15:45 Neuro: Positive for altered mental status, Negative for headache, seizure activity, weakness. 15:45 All other systems are negative. Exam: 15:50 Constitutional: The patient appears in no acute distress, alert, awake, cp non-diaphoretic, non-toxic, well developed, well nourished. 15:50 Head/Face: Normocephalic, atraumatic. cp 15:50 Eyes: Periorbital structures: appear normal, Pupils: equal, round, and reactive to light and accomodation, Extraocular movements: intact throughout, Conjunctiva: normal, no exudate, no injection, Lids and lashes: appear normal, bilaterally. 15:50 ENT: External ear(s): are unremarkable, Ear canal(s): are normal, clear, TM's: dullness, bilaterally, Nose: is normal, Mouth: Lips: moist, Oral mucosa: moist, Posterior pharynx: Airway: no evidence of obstruction, patent. 15:50 Neck: ROM/movement: is normal, is supple, without pain, no range of motions limitations, no meningismus. 15:50 Chest/axilla: Inspection: normal, Palpation: is normal, no crepitus, no tenderness. 15:50 Cardiovascular: Rate: normal, Rhythm: regular, Edema: is not appreciated, JVD: is not appreciated. 15:50 Respiratory: the patient does not display signs of respiratory distress, Respirations: normal, no use of accessory muscles, no retractions, labored breathing, is not present, Breath sounds: are clear throughout, no decreased breath sounds, no stridor, no wheezing. 15:50 Abdomen/GI: Inspection: abdomen appears normal, Palpation: abdomen is soft and non-tender, in all quadrants. 15:50 Back: pain, is absent, ROM is normal, vertebral tenderness, is not appreciated. 15:50 Skin: injury, laceration(s), of the right hand and left hand, that can be described as no foreign body, multiple, superficial, mild erythema. 15:50 Neuro: Orientation: to person, place, situation, Mentation: lucid, able to follow commands, Cerebellar function: is grossly normal, Motor: moves all fours, strength is normal, Sensation: is normal. 16:08 ECG was reviewed by the Attending Physician. cp Vital Signs: 14:42 BP 105 / 70; Pulse 90; Resp 18; Temp 98.3; Pulse Ox 97% ; Pain 5/10; ll1 16:00 BP 110 / 71; Pulse 85; Resp 18; Pulse Ox 97% ; ll1 17:00 BP 115 / 87; Pulse 78; Resp 18; Pulse Ox 98% ; ll1 18:25 BP 123 / 89; Pulse 64; Resp 18; Pulse Ox 100% ; Pain 0/10; ll1 Dwayne Coma Score: 14:45 Eye Response: spontaneous(4). Verbal Response: oriented(5). Motor Response: obeys ll1 commands(6). Total: 15. MDM: 15:42 Patient medically screened. cp 16:00 Differential Diagnosis: electrolyte abnormality, alcohol intoxication, hypoglycemia, cp overdose, seizure, volume depletion. 17:58 Data reviewed: vital signs, nurses notes, EKG, radiologic studies, CT scan, I have cp discussed the patient's presentation/case with the attending Emergency Department Physician; and as a result, I will discharge patient. 17:58 Test interpretation: by ED physician or midlevel provider: ECG. Counseling: I had a cp detailed discussion with the patient and/or guardian regarding: the historical points, exam findings, and any diagnostic results supporting the discharge/admit diagnosis, lab results, radiology results, to return to the emergency department if symptoms worsen or persist or if there are any questions or concerns that arise at home. Response to treatment: the patient's symptoms have markedly improved after treatment, patient is well hydrated. VSS. Patient resting comfortably in exam room, and as a result, I will discharge patient. 05/09 15:35 Order name: Acetaminophen; Complete Time: 16:59 cp 05/09 15:35 Order name: Basic Metabolic Panel; Complete Time: 16:59 05/09 16:59 Interpretation: Normal except: K 3.1; CL 109. cp 05/09 15:35 Order name: CBC with Diff; Complete Time: 16:17 cp 05/09 16:18 Interpretation: Normal except: RBC 3.72; HGB 12.0; HCT 35.4; PLT 455; MPV 7.1; MERCY% cp 78.0; LYM% 11.1. 05/09 15:35 Order name: ETOH Level; Complete Time: 17:28 cp 05/09 17:28 Interpretation: Reviewed. 05/09 15:35 Order name: Hepatic Function; Complete Time: 16:59 cp 05/09 15:35 Order name: PT-INR; Complete Time: 16:17 cp 05/09 15:35 Order name: Ptt, Activated; Complete Time: 16:17 cp 08 15:35 Order name: Salicylate; Complete Time: 16:59 cp 0805 15:35 Order name: CK; Complete Time: 16:59 cp 08 17:29 Interpretation: Abnormal: CPK 1565. cp 08/05 16:18 Order name: CT Head Brain wo Cont; Complete Time: 17:28 cp 08 15:35 Order name: EKG; Complete Time: 15:36 cp 08 15:35 Order name: EKG - Nurse/Tech; Complete Time: 16:08 cp 05/09 15:35 Order name: IV Saline Lock; Complete Time: 15:35 cp 08 15:35 Order name: Labs collected and sent; Complete Time: 15:35 cp 05/09 17:16 Order name: Wound Care: please clean and dress wounds; Complete Time: 17:49 cp EC:08 Rate is 73 beats/min. Rhythm is regular. MD interval is normal. QRS interval is normal. cp QT interval is normal. T waves are Inverted in lead aVR. Interpreted by me. Reviewed by me. Administered Medications: 15:48 Drug: NS 0.9% 1000 ml Route: IV; Rate: 1 bolus; Site: left antecubital; ll1 17:10 Follow up: Response: No adverse reaction; RASS: Alert and Calm (0); IV Status: ll1 Completed infusion; IV Intake: 1000ml 17:22 Drug: NS 0.9% 1000 ml Route: IV; Rate: 1 bolus; Site: left antecubital; ll1 18:25 Follow up: Response: No adverse reaction; RASS: Alert and Calm (0); IV Status: ll1 Completed infusion; IV Intake: 1000ml 17:22 Drug: Potassium Effervescent Tablet 50 mEq Route: PO; ll1 18:28 Follow up: Response: No adverse reaction; RASS: Alert and Calm (0) ll1 Disposition: 05/10 08:10 Co-signature as Attending Physician, William Romero MD I agree with the assessment and kdr plan of care. Disposition: 05/09/20 17:59 Discharged to Home. Impression: Other psychoactive substance abuse, Rhabdomyolysis, Laceration without foreign body of unspecified hand - multiple, bilateral. - Condition is Stable. - Discharge Instructions: Laceration Care, Adult, Rhabdomyolysis, Drug Overdose. - Prescriptions for Keflex 500 mg Oral Capsule - take 1 capsule by ORAL route every 8 hours for 10 days; 30 capsule. - Medication Reconciliation Form, Thank You Letter, Antibiotic Education, Prescription Opioid Use form. - Follow up: Private Physician; When: 1 - 2 days; Reason: Recheck today's complaints. - Problem is new. - Symptoms have improved. Signatures: Dispatcher [employer] EDMS William Romero MD MD [facility] Davonte Sullivan PA PA cp Rebecca Montes RN RN ll1 Corrections: (The following items were deleted from the chart) 05/09 18:29 17:59 05/09/2020 17:59 Discharged to Home. Impression: Other psychoactive substance ll1 abuse; Rhabdomyolysis; Laceration without foreign body of unspecified hand - multiple, bilateral. Condition is Stable. Forms are Medication Reconciliation Form, Thank You Letter, Antibiotic Education, Prescription Opioid Use. Follow up: Private Physician; When: 1 - 2 days; Reason: Recheck today's complaints. Problem is new. Symptoms have improved. cp
[2020-05-09 19:01] VITALS: BP 105/70; TEMP 98.3; O2SAT 97
== END 2020-05-09 18:29 | disposition home or self-care (01) ==
LOC: ER 14:41
DX: F19.10 Other psychoactive substance abuse, uncomplicated (principal); M62.82 Rhabdomyolysis; S61.412A Laceration without foreign body of left hand, initial encounter; S61.411A Laceration without foreign body of right hand, initial encounter; F17.210 Nicotine dependence, cigarettes, uncomplicated
CPT/HCPCS: 36415; 70450; 80048; 80076; 80320; 80329; 82550; 85025; 85610; 85730; 93005; 96360; 96361; 99284; J7030